=== PATIENT | female | born 1945 | race Caucasian/White ===

== ENCOUNTER 2017-01-30 14:27 | Observation (INO) | payer MEDICARE ==
--- NOTE | 2017-01-30 15:07 | ER Document Report ---
ED Medical Screen (RME) - General Chief Complaint: General Weakness Stated Complaint: WEAKNESS Notes: The patient is a 71-year-old female, past medical history hypertension, presents after she had 20 minutes of expressive aphasia while she was shopping earlier today. According to her sister, at 14:00, the patient was unable to speak, even though she was trying. On arrival to the emergency room at 14:20, the patient's symptoms resolved. She has never had any strokelike symptoms in the past. She took a baby aspirin earlier today. Denies numbness, tingling, headache, head injury, blurry vision, neck pain, ataxia, fevers, nausea or vomiting. I have greeted and performed a rapid initial assessment of this patient. A comprehensive ED assessment and evaluation of the patient, analysis of test results and completion of the medical decision making process will be conducted by additional ED providers. TRAVEL OUTSIDE OF THE [place] IN LAST 30 DAYS: No - Related Data Allergies/Adverse Reactions: No Known Allergies Allergy (Verified 01/30/17 14:37) Past Medical History Renal/ Medical History: Denies: Hx Peritoneal Dialysis Physical Exam - Vital signs Vitals: Temp Pulse Resp BP Pulse Ox 97.5 F 74 20 155/101 H 97 01/30/17 14:32 01/30/17 14:32 01/30/17 14:32 01/30/17 14:32 01/30/17 14:32 Course - Vital Signs Vital signs: Temp Pulse Resp BP Pulse Ox 97.5 F 74 20 155/101 H 97 01/30/17 14:32 01/30/17 14:32 01/30/17 14:32 01/30/17 14:32 01/30/17 14:32
--- NOTE | 2017-01-30 15:09 | ER Document Report ---
ED Alteplase Inc/Exc Criteria - Date/Time patient last known well: Date/Time: 01/30/17 14:00 - Inclusion Criteria: 1: Patient presented to ED within 3 hours of acute ischemic stroke symptom onset ? -: Yes 2: Did baseline CT exclude intracranial hemorrhage and/or other risk factors? -: Yes 3: Is the age of the patient 18 years of age or greater? -: Yes : If any of the above questions are answered "NO" then stop, patient is not a candidate for Alteplase, : If all of the above questions are answered "YES" then continue with Exclusion Criteria. - Exclusion Criteria: 1: Is there evidence of intracranial hemorrhage on baseline CT? -: No 2: Is there suspicion of subarachnoid hemorrhage (even if CT negative)? -: No 3: Is there a history of serious head trauma, recent previous stroke or NV within 3 months? -: No 4: Does the patient have a clinical presentation consistent with NV or post-NV pericarditis? -: No 5: Is there history of intracranial hemorrhage? -: No 6: On repeated measurement is Systolic BP greater than 185mmHg or Diastolic BP greater that 110 mmHg and is aggressive treatment needed to reduce blood pressure to these limits (e.g. constant infusion of an anti-hypertensive)? -: No 7: Did the patient awake with stroke symptoms? -: No 8: Has the patient had a lumbar puncture or an arterial puncture at a non- compressile site within 7 days? -: No 9: With in the last 14 days did the patient have surgery or major trauma? -: No 10: Is the patient or less than 2 weeks? -: No 11: Was there any active bleeding or acute trauma? -: No 12: Does the patient have intracranial neoplasm, arteriovenous malformation or aneurysm? -: No 13: Does the patient have abnormal glucose (less than 50 or greater than 400mg/ dl)? Record glucose in Comment. -: No 14: Patient has rapidly improving symptoms at the time Alteplase is to be Administered. -: Yes 15: Does the patient have any risks for bleeding, including but not limited to: a.: Current use of Coumadin with PT greater than 15 seconds or INR greater than 1.7. b.: Current use of Pradaxa (Dabigatran). c.: Heparin administereed within the past 48 hours and PTT elevated. d.: Platelet count less than 100,000/mm. e.: Major surgery or serious trauma within 14 days. f.: Gastrointestinal or gynecological urinary bleeding within 14 days. g.: Myocardial Infarction (NV) within 3 months. -: No : If the answer to any of the above questions is "YES" then stop, the patient is not a candidate for Alteplase. : If the answer to all of the above questions is "NO" then the patient may be eligible for the Administration of Alteplase. : If the patient is noted to have seizure activity at onset of Stroke symptoms; Consult Neurologist for further evaluation. - The patient is: -: Included and is eligible to receive Alteplase. *Initiate bed placement at higher level of care* --: No Reviewd risks & benefits of thrombolytic therapy: I have reviewed the risks and benefits of thrombolytic therapy with the patient and/or his/her family. No -: Excluded and not eligible to receive Alteplase for the above exclusions. --: Yes -: Excluded and not eligible to receive Alteplase for other reasons (specify in comments): - Diagnosis of TIA: -: Patient presented with transient symptoms that are now resolved and no other neurologic findings are currently present. List symptoms in comments. -: Yes -: Patient is NOT a candidate for tPA. -: Yes -: ____(put name in comment) has been consulted for admission and continued evaluation of risk factor assessment.
--- NOTE | 2017-01-30 16:26 | ER Document Report ---
ED General - General Chief Complaint: General Weakness Stated Complaint: WEAKNESS TRAVEL OUTSIDE OF THE [place] IN LAST 30 DAYS: No - HPI Patient complains to provider of: generalized weakness as well as aphasia Notes: Patient coming in for evaluation of generalized weakness that occurred while she was shopping. Patient states while she was in the car on the way here to the ER started having trouble speaking. Patient states this lasted for restrained 10-20 minutes. Friend at bedside confirms. Patient otherwise states her at this time she is asymptomatic. Patient denies symptoms are occurring before. Patient does state she does feel better. Patient states she does have history of hypertension with electrolyte abnormalities states recent adjustments to her blood pressure medications. - Related Data Allergies/Adverse Reactions: No Known Allergies Allergy (Verified 01/30/17 14:37) Home Medications: Current Home Medications Aspirin [Aspirin 81 mg Chewable Tablet] 81 mg PO QAM 01/30/17 [History] Atenolol [Atenolol] 50 mg PO DAILY 01/30/17 [History] Fluticasone Propionate [Flonase Nasal [place] 50 Mcg/[place] 16 gm] 1 spray NASL DAILY 01/30/17 [History] Past Medical History - Social History Smoking Status: Unknown if Ever Smoked Family History: Reviewed & Not Pertinent Patient has suicidal ideation: No Patient has homicidal ideation: No Renal/ Medical History: Denies: Hx Peritoneal Dialysis Review of Systems - Review of Systems Constitutional: Weakness EENT: No symptoms reported Cardiovascular: No symptoms reported Respiratory: No symptoms reported Gastrointestinal: No symptoms reported Genitourinary: No symptoms reported Female Genitourinary: No symptoms reported Musculoskeletal: No symptoms reported Skin: No symptoms reported Hematologic/Lymphatic: No symptoms reported Neurological/Psychological: Other - Aphasia -: Yes All other systems reviewed and negative Physical Exam - Vital signs Vitals: Temp Pulse Resp BP Pulse Ox 97.5 F 74 20 155/101 H 97 01/30/17 14:32 01/30/17 14:32 01/30/17 14:32 01/30/17 14:32 01/30/17 14:32 Interpretation: Normal - General General appearance: Appears well, Alert - HEENT Head: Normocephalic, Atraumatic Eyes: Normal Pupils: PERRL - Respiratory Respiratory status: No respiratory distress Chest status: Nontender Breath sounds: Normal Chest palpation: Normal - Cardiovascular Rhythm: Regular Heart sounds: Normal auscultation Murmur: No - Abdominal Inspection: Normal Distension: No distension Bowel sounds: Normal Tenderness: Nontender Organomegaly: No organomegaly - Back Back: Normal, Nontender - Extremities General upper extremity: Normal inspection, Nontender, Normal color, Normal ROM , Normal temperature General lower extremity: Normal inspection, Nontender, Normal color, Normal ROM , Normal temperature, Normal weight bearing. No: Veto's sign - Neurological Neuro grossly intact: Yes Cognition: Normal Orientation: AAOx4 [place] Coma Scale Eye Opening: Spontaneous [place] Coma Scale Verbal: Oriented [place] Coma Scale Motor: Obeys Commands [place] Coma Scale Total: 15 Speech: Normal Cranial nerves: Normal Cerebellar coordination: Normal Motor strength normal: LUE, RUE, LLE, RLE Additional motor exam normals: Equal block captain Sensory: Normal - Psychological Associated symptoms: Normal affect, Normal mood - Skin Skin Temperature: Warm Skin Moisture: Dry Skin Color: Normal Course - Re-evaluation Re-evalutation: 01/30/17 21:42 Patient symptoms are concerning for possible TIA. Laboratory data shows some signs of dehydration with hemoconcentration. Patient's blood pressure does continue to elevate. I did discuss case with hospitals agrees oral hydralazine 25 mg. As that we do not have an IV established at this time. Discussed with patient need for further evaluation and admission. Patient was admitted - Vital Signs Vital signs: Temp Pulse Resp BP Pulse Ox 97.5 F 67 17 170/82 H 93 01/30/17 14:32 01/30/17 20:00 01/30/17 21:01 01/30/17 21:01 01/30/17 21:01 - Laboratory Result Diagrams: 01/30/17 16:45 01/30/17 16:45 Laboratory results interpreted by me: 01/30/17 01/30/17 01/30/17 16:45 16:45 17:12 Hgb 15.7 H Hct 47.3 H Lymphocytes % 11.2 L Sodium 134.3 L Chloride 90 L Carbon Dioxide 33 H Calcium 10.5 H Urine Urobilinogen 2.0 H Ur Leukocyte Esterase TRACE H - Diagnostic Test Radiology reviewed: Image reviewed Critical Care Note - Critical Care Note Total time excluding time spent on procedures (mins): 35 Comments: Patient seen for possible TIA-like symptoms. Multiple evaluations due to patient having neurological symptoms and elevated blood pressure Discharge - Discharge Clinical Impression: expressive aphasia resolved, Accelerated hypertension TIA (transient ischemic attack) Qualifiers: Transient cerebral ischemia type: unspecified Qualified Code(s): G45.9 - Transient cerebral ischemic attack, unspecified Disposition: ADMITTED OBSERVATION Admitting Provider: Hospitalist - Fl[facility] Admitted: [facility]
[2017-01-30 16:58] LABS: ABSOLUTE BASOPHILS # (AUTO) 0.1 10^3/uL (0.0-0.2); ABSOLUTE EOSINOPHILS # (AUTO) 0.5 10^3/uL (0.0-0.6); ABSOLUTE MONOCYTES (AUTO) 0.9 10^3/uL (0.1-1.4); ABSOLUTE NEUT (AUTO) 6.9 10^3/uL (1.7-8.2); BASOPHILS % (AUTO) 0.9 % (0-2); HEMATOCRIT 47.3 % (36.0-47.0); HEMOGLOBIN 15.7 g/dL (12.0-15.5); HGB HCT DIFFERENCE -0.2; LYMPHOCYTES % (AUTO) 11.2 % (13-45); MEAN CORPUSCULAR HGB CONC 33.3 g/dL (32.0-36.0); MEAN CORPUSCULAR VOLUME 90 fl (80-97); MONOCYTES % (AUTO) 9.3 % (3-13); RED BLOOD COUNT 5.25 10^6/uL (3.72-5.28); RED CELL DISTRIBUTION WIDTH 13.8 % (11.5-14.0); SEGMENTED NEUTROPHILS % (AUTO) 73.6 % (42-78); WHITE BLOOD COUNT 9.3 10^3/uL (4.0-10.5)
[2017-01-30 17:03] LABS: PROTHROMBIN TIME 12.7 SEC (11.4-15.4)
[2017-01-30 17:04] LABS: PARTIAL THROMBOPLASTIN TIME 31.1 SEC (23.5-35.8)
[2017-01-30] MEDS ORDERED: NORMAL SALINE 500 ML IV ONE (17:17)
[2017-01-30 17:18] LABS: ALANINE AMINOTRANSFERASE 28 U/L (9-52); ALBUMIN 4.5 g/dL (3.5-5.0); ALKALINE PHOSPHATASE 66 U/L (38-126); ANION GAP 11 (5-19); ASPARTATE AMINO TRANSFERASE 22 U/L (14-36); BILIRUBIN,DIRECT 0.1 mg/dL (0.0-0.4); BILIRUBIN,TOTAL 1.2 mg/dL (0.2-1.3); BLOOD UREA NITROGEN 13 mg/dL (7-20); CALCIUM 10.5 mg/dL (8.4-10.2); CARBON DIOXIDE 33 mmol/L (22-30); CHLORIDE 90 mmol/L (98-107); CREATINE KINASE 49 U/L (30-135); CREATININE RESULT 0.79 mg/dL (0.52-1.25); GLUCOSE 98 mg/dL (75-110); SODIUM 134.3 mmol/L (137-145); TOTAL PROTEIN 6.9 g/dL (6.3-8.2)
[2017-01-30 17:24] LABS: APPEARANCE,URINE SLIGHTLY-CLOUDY; BILIRUBIN,URINE NEGATIVE (NEGATIVE); GLUCOSE, URINE NEGATIVE (NEGATIVE); KETONES,URINE NEGATIVE (NEGATIVE); LEUKOCYTE ESTERASE,URINE TRACE (NEGATIVE); NITRITE,URINE NEGATIVE (NEGATIVE); PROTEIN,URINE NEGATIVE (NEGATIVE); URINE SPECIFIC GRAVITY 1.008
[2017-01-30] MEDS ORDERED: HYDRALAZINE HCL 25 MG TABLET PO ONE (17:36)
--- NOTE | 2017-01-30 19:53 | EKG REPORT ---
SEVERITY:- NORMAL ECG - SINUS RHYTHM : Confirmed by: Davi Perez MD 30-Jan-2017 19:52:47
[2017-01-30] MEDS ORDERED: ASPIRIN 325 MG TABLET, ENT COATED PO SCH (20:30)
[2017-01-30] MEDS ORDERED: ENOXAPARIN SODIUM INJ 40 MG/0.4 ML DISP.SYRIN SUBCUT ONE (21:00)
[2017-01-30] MEDS ORDERED: ATORVASTATIN CALCIUM 80 MG TABLET PO SCH (22:00)
[2017-01-30] MEDS ORDERED: FAMOTIDINE 20 MG TABLET PO SCH (22:00)
[2017-01-30] MEDS: HYDRALAZINE HCL 25 MG TABLET PO SCH (23:16)
[2017-01-31] MEDS: HYDRALAZINE HCL 25 MG TABLET PO SCH (05:56)
[2017-01-31] MEDS ORDERED: ENOXAPARIN SODIUM INJ 40 MG/0.4 ML DISP.SYRIN SUBCUT SCH (08:00)
[2017-01-31 08:38] LABS: CHOLESTEROL 167.89 mg/dL (0-200); Direct HDL 67 mg/dL (>40); TRIGLYCERIDES 99 mg/dL (<150)
[2017-01-31 08:49] LABS: DIRECT LDL 80 mg/dL (<100)
[2017-01-31] MEDS ORDERED: ATENOLOL 50 MG TABLET PO SCH (10:00)
[2017-01-31] MEDS ORDERED: FAMOTIDINE 20 MG TABLET PO SCH (11:00)
--- NOTE | 2017-01-31 13:48 | XCELERA REPORT ---
[address] [address] Transthoracic Echocardiogram Report Name: MARIEL ALBARRAN Age: 71 yrs Gender: Female : 1945 Patient Status: Inpatient Patient Location: [id number]\S\329\S\A Study Date: 01/31/2017 12:22 PM Height: 62 in Weight: 265 lb BSA: 2.2 m2 Procedure: A two-dimensional transthoracic echocardiogram with color flow and Doppler was performed. Study Quality: Technically suboptimal. Reason For Study: TIA History: TIA. Ordering Physician: TARAS SMITH Performed By: Yelena Castle Interpretation Summary There is no obvious cardiac source of embolus noted on this transthoracic echocardiogram. Follow-up with a [facility] is suggested if cardiac source is still suspected. 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 The left ventricle is normal in size. There is normal left ventricular wall thickness. LV EF is 60% Left ventricular systolic function is low normal. Doppler measurements suggest impaired left ventricular relaxation, which is associated with grade I/IV or mild diastolic dysfunction The right ventricle is grossly normal size. The left atrial size is normal. There is no evidence of mitral valve prolapse. There is no mitral valve stenosis. There is no mitral regurgitation noted. There is no aortic valve stenosis There is no LVOT obstruction. No aortic regurgitation is present. There is no tricuspid stenosis. No tricuspid regurgitation. Unable to calculate RVSP due to insufficient TR jet. There is no pericardial effusion. There is no obvious cardiac source of embolus noted on this transthoracic echocardiogram. Follow-up with a [facility] is suggested if cardiac source is still suspected A 10.6 X 11.3 anechoic mass in Liver.Recommend further workup of this. MMode/2D Measurements \T\ Calculations RVDd: 2.3 cm LVIDd: 4.3 cm FS: 31.4 % Ao root diam: 3.2 cm IVSd: 1.1 cm LVIDs: 3.0 cm EDV(Teich): 84.9 ml LVPWd: 1.1 cm ESV(Teich): 34.3 ml Ao root area: 8.2 cm2 EF(Teich): 59.6 % LA dimension: 3.0 cm LVOT diam: 2.3 cm LVOT area: 4.0 cm2 Doppler Measurements \T\ Calculations MV E max candis: MV P1/2t max candis: Ao V2 max: LV V1 max P.6 cm/sec 81.2 cm/sec 135.1 cm/sec 4.3 mmHg MV A max candis: MV P1/2t: 57.0 msec Ao max PG: LV V1 max: 98.7 cm/sec MVA(P1/2t): 3.9 cm2 7.3 mmHg 103.9 cm/sec MV E/A: 0.82 MV dec slope: ANN MARIE(V,D): 3.1 cm2 417.7 cm/sec2 PA V2 max: 50.7 cm/sec PA max P.0 mmHg Left Ventricle The left ventricle is normal in size. There is normal left ventricular wall thickness. LV EF is 60%. Left ventricular systolic function is low normal. Doppler measurements suggest impaired left ventricular relaxation, which is associated with grade I/IV or mild diastolic dysfunction. The left ventricular wall motion is normal. There is no thrombus. Right Ventricle The right ventricle is grossly normal size. Atria The right atrium is normal in size. The left atrial size is normal. Mitral Valve There is mild mitral annular calcification. There is no evidence of mitral valve prolapse. There is no vegetation seen on the mitral valve. There is no mitral valve stenosis. There is no mitral regurgitation noted. Aortic Valve There is no aortic valvular vegetation. There is no aortic valve stenosis. There is no LVOT obstruction. No aortic regurgitation is present. Tricuspid Valve There is no tricuspid stenosis. No tricuspid regurgitation. Unable to calculate RVSP due to insufficient TR jet. Pulmonic Valve The pulmonic valve is not well visualized. Great Vessels The aortic root is normal size. Effusions There is no pericardial effusion. : TARAS SMITH > Katherine Thomas
[2017-01-31 14:30] VITALS: BP 148/77
--- NOTE | 2017-01-31 16:28 | PDOC H&P ---
History of Present Illness Admission Date/PCP: 01/30/17 20:22 MICAH MASON NP I Laboratory Patient complains of: Generalized weakness and aphasia History of Present Illness: MARIEL ALBARRAN is a 71 year old female Patient coming in for evaluation of generalized weakness that occurred while she was shopping. Patient states while she was in the car on the way here to the ER started having trouble speaking. Patient states this lasted for restrained 10-20 minutes. Friend at bedside confirms. Patient otherwise states her at this time she is asymptomatic. Patient denies symptoms are occurring before. Patient does state she does feel better. Patient states she does have history of hypertension with electrolyte abnormalities states recent adjustments to her blood pressure medications. Aphasia resolved after 20 minutes and patient was totally asymptomatic when evaluated She had an initial negative CAT scan She was subsequently admitted to IMCU unit for observation under hospitalist service with a presumptive diagnosis of TIA Past Medical History Cardiac Medical History: Reports: Hypertension Psychiatric Medical History: Reports: Depression Social History Smoking Status: Former Smoker Last Time Smoked: 10/20/2014 Frequency of Alcohol Use: None Hx Recreational Drug Use: No Drugs: None Hx Prescription Drug Abuse: No - Advance Directive Resuscitation Status: Full Code Surrogate healthcare decision maker:: sister Adriana Family History Family History: Reviewed & Not Pertinent, Hypertension Parental Family History Reviewed: Yes Children Family History Reviewed: Yes Sibling(s) Family History Reviewed.: Yes Medication/Allergy Home Medications: Atenolol 50 mg PO DAILY 01/30/17 Fluticasone Propionate [Flonase Nasal [place] 50 Mcg/[place] 16 gm] 1 spray NASL DAILY 01/30/17 Atenolol [Tenormin 50 mg Tablet] 50 mg PO DAILY #30 tablet 01/31/17 Atorvastatin Calcium [Lipitor 10 mg Tablet] 10 mg PO QHS #30 tablet 01/31/17 Clopidogrel Bisulfate [Plavix 75 mg Tablet] 75 mg PO DAILY #30 tablet 01/31/17 Hydralazine HCl [Apresoline 25 mg Tablet] 25 mg PO Q8 #90 tablet 01/31/17 Allergies/Adverse Reactions: No Known Allergies Allergy (Verified 01/30/17 14:37) Review of Systems Constitutional: PRESENT: weakness. ABSENT: chills, fever(s), headache(s), weight gain, weight loss Eyes: ABSENT: visual disturbances Ears: ABSENT: hearing changes Cardiovascular: ABSENT: chest pain, dyspnea on exertion, edema, orthropnea, palpitations Respiratory: ABSENT: cough, hemoptysis Gastrointestinal: ABSENT: abdominal pain, constipation, diarrhea, hematemesis, hematochezia, nausea, vomiting Genitourinary: ABSENT: dysuria, hematuria Musculoskeletal: ABSENT: joint swelling Integumentary: ABSENT: rash, wounds Neurological: PRESENT: abnormal speech, weakness, other - Aphasia resolved. ABSENT: abnormal gait, confusion, dizziness, focal weakness, syncope Psychiatric: ABSENT: anxiety, depression, homidical ideation, suicidal ideation Endocrine: ABSENT: cold intolerance, heat intolerance, polydipsia, polyuria Hematologic/Lymphatic: ABSENT: easy bleeding, easy bruising Physical Exam Vital Signs: Temp Pulse Resp BP Pulse Ox 98.6 F 65 18 148/77 H 96 01/31/17 14:26 01/31/17 14:26 01/31/17 14:26 01/31/17 14:26 01/31/17 14:26 Intake & Output 01/30/17 01/31/17 02/01/17 00:59 00:59 00:59 Intake Total 300 1078 Output Total 1200 Balance 300 -122 Weight 120.5 kg 120.5 kg General appearance: PRESENT: no acute distress Head exam: PRESENT: atraumatic, normocephalic Eye exam: PRESENT: conjunctiva pink, EOMI, PERRLA. ABSENT: scleral icterus Ear exam: PRESENT: normal external ear exam Mouth exam: PRESENT: moist, tongue midline Neck exam: ABSENT: carotid bruit, JVD, lymphadenopathy, thyromegaly Respiratory exam: PRESENT: clear to auscultation cheng. ABSENT: rales, rhonchi, wheezes Cardiovascular exam: PRESENT: RRR. ABSENT: diastolic murmur, rubs, systolic murmur Pulses: PRESENT: normal dorsalis pedis pul Vascular exam: PRESENT: normal capillary refill GI/Abdominal exam: PRESENT: normal bowel sounds, soft. ABSENT: distended, guarding, mass, organolmegaly, rebound, tenderness Rectal exam: PRESENT: deferred Extremities exam: PRESENT: full ROM. ABSENT: calf tenderness, clubbing, pedal edema Neurological exam: PRESENT: alert, awake, oriented to person, oriented to place , oriented to time, oriented to situation, CN II-XII grossly intact. ABSENT: motor sensory deficit Psychiatric exam: PRESENT: appropriate affect, normal mood. ABSENT: homicidal ideation, suicidal ideation Skin exam: PRESENT: dry, intact, warm. ABSENT: cyanosis, rash Results Laboratory Results: 01/31/17 08:15 Triglycerides 99 Cholesterol 167.89 LDL Cholesterol Direct 80 VLDL Cholesterol 20.0 HDL Cholesterol 67 01/30/17 16:45 01/30/17 16:45 MCV 90 fl (80-97) 01/30/17 16:45 MCH 30.0 pg (27.0-33.4) 01/30/17 16:45 MCHC 33.3 g/dL (32.0-36.0) 01/30/17 16:45 RDW 13.8 % (11.5-14.0) 01/30/17 16:45 Seg Neutrophils % 73.6 % (42-78) 01/30/17 16:45 Lymphocytes % 11.2 % (13-45) L 01/30/17 16:45 Monocytes % 9.3 % (3-13) 01/30/17 16:45 Eosinophils % 5.0 % (0-6) 01/30/17 16:45 Basophils % 0.9 % (0-2) 01/30/17 16:45 Absolute Neutrophils 6.9 10^3/uL (1.7-8.2) 01/30/17 16:45 Absolute Lymphocytes 1.0 10^3/uL (0.5-4.7) 01/30/17 16:45 Absolute Monocytes 0.9 10^3/uL (0.1-1.4) 01/30/17 16:45 Absolute Eosinophils 0.5 10^3/uL (0.0-0.6) 01/30/17 16:45 Absolute Basophils 0.1 10^3/uL (0.0-0.2) 01/30/17 16:45 Chloride 90 mmol/L (98-107) L 01/30/17 16:45 Carbon Dioxide 33 mmol/L (22-30) H 01/30/17 16:45 Anion Gap 11 (5-19) 01/30/17 16:45 Est GFR ( Amer) > 60 (>60) 01/30/17 16:45 Est GFR (Non-Af Amer) > 60 (>60) 01/30/17 16:45 Glucose 98 mg/dL (75-110) 01/30/17 16:45 Calcium 10.5 mg/dL (8.4-10.2) H 01/30/17 16:45 Total Bilirubin 1.2 mg/dL (0.2-1.3) 01/30/17 16:45 AST 22 U/L (14-36) 01/30/17 16:45 ALT 28 U/L (9-52) 01/30/17 16:45 Alkaline Phosphatase 66 U/L (38-126) 01/30/17 16:45 Total Protein 6.9 g/dL (6.3-8.2) 01/30/17 16:45 Albumin 4.5 g/dL (3.5-5.0) 01/30/17 16:45 Triglycerides 99 mg/dL (<150) 01/31/17 08:15 Cholesterol 167.89 mg/dL (0-200) 01/31/17 08:15 LDL Cholesterol Direct 80 mg/dL (<100) 01/31/17 08:15 VLDL Cholesterol 20.0 mg/dL (10-31) 01/31/17 08:15 HDL Cholesterol 67 mg/dL (>40) 01/31/17 08:15 Urine Color YELLOW 01/30/17 17:12 Urine Appearance SLIGHTLY-CLOUDY 01/30/17 17:12 Urine pH 7.0 (5.0-9.0) 01/30/17 17:12 Ur Specific [place] 1.008 01/30/17 17:12 Urine Protein NEGATIVE mg/dL (NEGATIVE) 01/30/17 17:12 Urine Glucose (UA) NEGATIVE mg/dL (NEGATIVE) 01/30/17 17:12 Urine Ketones NEGATIVE mg/dL (NEGATIVE) 01/30/17 17:12 Urine Blood NEGATIVE (NEGATIVE) 01/30/17 17:12 Urine Nitrite NEGATIVE (NEGATIVE) 01/30/17 17:12 Ur Leukocyte Esterase TRACE (NEGATIVE) H 01/30/17 17:12 Urine WBC (Auto) 2 /HPF 01/30/17 17:12 Urine RBC (Auto) 0 /HPF 01/30/17 17:12 01/30/17 01/30/17 16:45 16:45 Creatine Kinase 49 Troponin I < 0.012 EKG Comments: EKG normal sinus rhythm Impressions: Chest X-Ray 01/30/17 14:43 IMPRESSION: NO ACUTE RADIOGRAPHIC FINDING IN THE CHEST. Head CT 01/30/17 14:43 IMPRESSION: No acute abnormality in the brain. Carotid Doppler Study 01/31/17 00:00 IMPRESSION: NO HEMODYNAMICALLY SIGNIFICANT STENOSIS. Assessment & Plan - Diagnosis (1) Accelerated hypertension Is this a current diagnosis for this admission?: Yes (2) TIA (transient ischemic attack) Qualifiers: Transient cerebral ischemia type: unspecified Qualified Code(s): G45.9 - Transient cerebral ischemic attack, unspecified Is this a current diagnosis for this admission?: Yes - Time Time Spent with patient: We will initiate hydralazine by mouth; continue atenolol Patient to be admitted to IMCU with [facility] exams carotid ultrasound and echocardiogram will be scheduled Patient is to anxious to tolerate MRI We will initiate aspirin and Lipitor Time Spent: 50 to 70 Minutes - Inpatient Certification Based on my medical assessment, after consideration of the patient's comorbidities, presenting symptoms, or acuity I expect that the services needed warrant INPATIENT care.: No I certify that my determination is in accordance with my understanding of Medicare's requirements for reasonable and necessary INPATIENT services [42 CFR 412.3e].: No
--- NOTE | 2017-01-31 16:44 | PDOC DISCHARGE SUMMARY ---
General - Admit/Disc Date/PCP Admission Date/Primary Care Provider: 01/30/17 20:22 MICAH MASON NP Discharge Date: 01/31/17 - Discharge Diagnosis (1) Accelerated hypertension Is this a current diagnosis for this admission?: YesSummary: Patient's blood pressure was very high on admission Selected Entries 01/30/17 01/30/17 01/30/17 16:58 16:59 17:01 Blood Pressure 190/105 H 194/105 H 205/114 H Blood Pressure [Sitting] Blood Pressure [Standing] Blood Pressure [Supine] 01/30/17 17:31 Blood Pressure Blood Pressure 194/105 H [Sitting] Blood Pressure 205/114 H [Standing] Blood Pressure 190/115 H [Supine] She was treated with hydralazine and atenolol was continued It came down gently to Selected Entries 01/31/17 01/31/17 12:00 14:26 Blood Pressure 150/73 H Blood Pressure 148/77 H [Left Upper Arm ] We do believe that patient had a hypertensive episode that contributed to the TIA Patient was discharged on atenolol and hydralazine (2) TIA (transient ischemic attack) Is this a current diagnosis for this admission?: YesSummary: CAT scan of the brain was normal An MRA was not performed as the patient is claustrophobic Patient mentation was intact during the hospitalization ; she she had no deficits Speech was not impaired She was discharged on Lipitor and Plavix (3) Liver mass Is this a current diagnosis for this admission?: YesSummary: Incidentally , Echocardiogram showed a liver mass 10 x [address] abdomen and pelvis with contrast was advised Patient did not wish to have the test done at this time Noted that patient's LFTs were normal - Additional Information Resuscitation Status: Full Code Discharge Diet: Cardiac Discharge Activity: Activity As Tolerated, Balance Activity w/Rest Home Medications: Atenolol 50 mg PO DAILY 01/30/17 Fluticasone Propionate [Flonase Nasal Stewardson 50 Mcg/Stewardson 16 gm] 1 spray NASL DAILY 01/30/17 Atenolol [Tenormin 50 mg Tablet] 50 mg PO DAILY #30 tablet 01/31/17 Atorvastatin Calcium [Lipitor 10 mg Tablet] 10 mg PO QHS #30 tablet 01/31/17 Clopidogrel Bisulfate [Plavix 75 mg Tablet] 75 mg PO DAILY #30 tablet 01/31/17 Hydralazine HCl [Apresoline 25 mg Tablet] 25 mg PO Q8 #90 tablet 01/31/17 History of Present Illness Patient complains of: Weakness and aphasia History of Present Illness: MARIEL ALBARRAN is a 71 year old female Patient coming in for evaluation of generalized weakness that occurred while she was shopping. Patient states while she was in the car on the way here to the ER started having trouble speaking. Patient states this lasted for restrained 10-20 minutes. Friend at bedside confirms. Patient otherwise states her at this time she is asymptomatic. Patient denies symptoms are occurring before. Patient does state she does feel better. Patient states she does have history of hypertension with electrolyte abnormalities states recent adjustments to her blood pressure medications. Aphasia resolved after 20 minutes and patient was totally asymptomatic when evaluated She had an initial negative CAT scan She was subsequently admitted to IMCU unit for observation under hospitalist service with a presumptive diagnosis of TIA Hospital Course Hospital Course: Patient remained totally asymptomatic during her stay Cardiac enzymes were negative EKG were unchanged She remained a extremely anxious Physical Exam Vital Signs: Temp Pulse Resp BP Pulse Ox 98.6 F 65 18 148/77 H 96 01/31/17 14:26 01/31/17 14:26 01/31/17 14:26 01/31/17 14:26 01/31/17 14:26 Intake & Output 01/30/17 01/31/17 02/01/17 00:59 00:59 00:59 Intake Total 300 1078 Output Total 1200 Balance 300 -122 Weight 120.5 kg 120.5 kg General appearance: PRESENT: no acute distress, well-developed, well-nourished Head exam: PRESENT: atraumatic, normocephalic Eye exam: PRESENT: conjunctiva pink, EOMI, PERRLA. ABSENT: scleral icterus Ear exam: PRESENT: normal external ear exam Mouth exam: PRESENT: moist, tongue midline Neck exam: ABSENT: carotid bruit, JVD, lymphadenopathy, thyromegaly Respiratory exam: PRESENT: clear to auscultation cheng. ABSENT: rales, rhonchi, wheezes Cardiovascular exam: PRESENT: RRR. ABSENT: diastolic murmur, rubs, systolic murmur Pulses: PRESENT: normal dorsalis pedis pul Vascular exam: PRESENT: normal capillary refill GI/Abdominal exam: PRESENT: normal bowel sounds, soft. ABSENT: distended, guarding, mass, organolmegaly, rebound, tenderness Rectal exam: PRESENT: deferred Extremities exam: PRESENT: full ROM. ABSENT: calf tenderness, clubbing, pedal edema Neurological exam: PRESENT: alert, awake, oriented to person, oriented to place , oriented to time, oriented to situation, CN II-XII grossly intact. ABSENT: motor sensory deficit Psychiatric exam: PRESENT: appropriate affect, normal mood. ABSENT: homicidal ideation, suicidal ideation Skin exam: PRESENT: dry, intact, warm. ABSENT: cyanosis, rash Results Laboratory Results: 01/31/17 08:15 Triglycerides 99 Cholesterol 167.89 LDL Cholesterol Direct 80 VLDL Cholesterol 20.0 HDL Cholesterol 67 01/30/17 16:45 01/30/17 16:45 MCV 90 fl (80-97) 01/30/17 16:45 MCH 30.0 pg (27.0-33.4) 01/30/17 16:45 MCHC 33.3 g/dL (32.0-36.0) 01/30/17 16:45 RDW 13.8 % (11.5-14.0) 01/30/17 16:45 Seg Neutrophils % 73.6 % (42-78) 01/30/17 16:45 Lymphocytes % 11.2 % (13-45) L 01/30/17 16:45 Monocytes % 9.3 % (3-13) 01/30/17 16:45 Eosinophils % 5.0 % (0-6) 01/30/17 16:45 Basophils % 0.9 % (0-2) 01/30/17 16:45 Absolute Neutrophils 6.9 10^3/uL (1.7-8.2) 01/30/17 16:45 Absolute Lymphocytes 1.0 10^3/uL (0.5-4.7) 01/30/17 16:45 Absolute Monocytes 0.9 10^3/uL (0.1-1.4) 01/30/17 16:45 Absolute Eosinophils 0.5 10^3/uL (0.0-0.6) 01/30/17 16:45 Absolute Basophils 0.1 10^3/uL (0.0-0.2) 01/30/17 16:45 Chloride 90 mmol/L (98-107) L 01/30/17 16:45 Carbon Dioxide 33 mmol/L (22-30) H 01/30/17 16:45 Anion Gap 11 (5-19) 01/30/17 16:45 Est GFR ( Amer) > 60 (>60) 01/30/17 16:45 Est GFR (Non-Af Amer) > 60 (>60) 01/30/17 16:45 Glucose 98 mg/dL (75-110) 01/30/17 16:45 Calcium 10.5 mg/dL (8.4-10.2) H 01/30/17 16:45 Total Bilirubin 1.2 mg/dL (0.2-1.3) 01/30/17 16:45 AST 22 U/L (14-36) 01/30/17 16:45 ALT 28 U/L (9-52) 01/30/17 16:45 Alkaline Phosphatase 66 U/L (38-126) 01/30/17 16:45 Total Protein 6.9 g/dL (6.3-8.2) 01/30/17 16:45 Albumin 4.5 g/dL (3.5-5.0) 01/30/17 16:45 Triglycerides 99 mg/dL (<150) 01/31/17 08:15 Cholesterol 167.89 mg/dL (0-200) 01/31/17 08:15 LDL Cholesterol Direct 80 mg/dL (<100) 01/31/17 08:15 VLDL Cholesterol 20.0 mg/dL (10-31) 01/31/17 08:15 HDL Cholesterol 67 mg/dL (>40) 01/31/17 08:15 Urine Color YELLOW 01/30/17 17:12 Urine Appearance SLIGHTLY-CLOUDY 01/30/17 17:12 Urine pH 7.0 (5.0-9.0) 01/30/17 17:12 Ur Specific Marion 1.008 01/30/17 17:12 Urine Protein NEGATIVE mg/dL (NEGATIVE) 01/30/17 17:12 Urine Glucose (UA) NEGATIVE mg/dL (NEGATIVE) 01/30/17 17:12 Urine Ketones NEGATIVE mg/dL (NEGATIVE) 01/30/17 17:12 Urine Blood NEGATIVE (NEGATIVE) 01/30/17 17:12 Urine Nitrite NEGATIVE (NEGATIVE) 01/30/17 17:12 Ur Leukocyte Esterase TRACE (NEGATIVE) H 01/30/17 17:12 Urine WBC (Auto) 2 /HPF 01/30/17 17:12 Urine RBC (Auto) 0 /HPF 01/30/17 17:12 01/30/17 01/30/17 16:45 16:45 Creatine Kinase 49 Troponin I < 0.012 EKG Comments: Normal sinus rhythm Impressions: Chest X-Ray 01/30/17 14:43 IMPRESSION: NO ACUTE RADIOGRAPHIC FINDING IN THE CHEST. Head CT 01/30/17 14:43 IMPRESSION: No acute abnormality in the brain. Carotid Doppler Study 01/31/17 00:00 IMPRESSION: NO HEMODYNAMICALLY SIGNIFICANT STENOSIS. Plan Discharge Plan: Discharged home Follow up with primary care physician CT abdomen and pelvis with contrast will be performed as an outpatient Time Spent: Greater than 30 Minutes
== END 2017-01-31 14:51 | disposition home or self-care (01) ==
LOC: ER 14:27 → EH 18:15 → UNDOADMOB 18:15 → EH 20:22 → 3S 21:45 → EH 21:45
PROVIDERS: ADMIT Family Medicine; ATTEND Family Medicine
DX: I10 Essential (primary) hypertension (principal); G45.9 Transient cerebral ischemic attack, unspecified; F40.240 Claustrophobia; Z53.8 Procedure and treatment not carried out for other reasons; R16.0 Hepatomegaly, not elsewhere classified; Z87.891 Personal history of nicotine dependence; Z79.899 Other long term (current) drug therapy; Z79.82 Long term (current) use of aspirin
CPT/HCPCS: 93005; 99291; 96360; 36415; 82550; 85025; 85610; 85730; 80053; 81001; 84484; 80061; 93306; 93880; 71010; 70450; 93010; G0378 ×3; A9270 ×7; J1650 ×2; J3490 ×2; J7040

== ENCOUNTER 2019-12-25 20:17 | Inpatient (IN) | payer MEDICARE ==
[2019-12-25 21:27] LABS: APPEARANCE,URINE SLIGHTLY-CLOUDY; BILIRUBIN,URINE NEGATIVE (NEGATIVE); COLOR,URINE AMBER; GLUCOSE, URINE NEGATIVE (NEGATIVE); KETONES,URINE NEGATIVE (NEGATIVE); LEUKOCYTE ESTERASE,URINE SMALL (NEGATIVE); NITRITE,URINE NEGATIVE (NEGATIVE); PROTEIN,URINE 30 mg/dL (NEGATIVE); URINE SPECIFIC GRAVITY 1.023
--- NOTE | 2019-12-25 21:40 | RADIOLOGY REPORT (SQ) ---
EXAM DESCRIPTION: AP portable chest radiograph CLINICAL HISTORY: 74 years Female, SOB COMPARISON: PA view of the chest January 30, 2017 FINDINGS: Lungs: No focal consolidation. No definitive pneumothorax or pleural effusion. Mediastinum: Heart size is enlarged. There is calcification of the thoracic aorta. Calcified right hilar lymph nodes are seen. Bones: Osseous structures are stable IMPRESSION: No acute process. Previous granulomatous infection.
[2019-12-25 21:41] LABS: HEMATOCRIT 51.8 % (36.0-47.0); HEMOGLOBIN 16.9 g/dL (12.0-15.5); MEAN CORPUSCULAR HEMOGLOBIN 29.7 pg (27.0-33.4); MEAN CORPUSCULAR HGB CONC 32.6 g/dL (32.0-36.0); MEAN CORPUSCULAR VOLUME 91 fl (80-97); PLATELET COUNT 223 10^3/uL (150-450); RED BLOOD COUNT 5.69 10^6/uL (3.72-5.28); RED CELL DISTRIBUTION WIDTH 15.9 % (11.5-14.0); WHITE BLOOD COUNT 9.6 10^3/uL (4.0-10.5)
--- NOTE | 2019-12-25 21:46 | RADIOLOGY REPORT (SQ) ---
EXAM DESCRIPTION: Three views of the left foot. CLINICAL HISTORY: 74 years Female, PAIN COMPARISON: None. FINDINGS: Bunion deformity the first MTP joint is identified with hypertrophy of the head of the mid first metatarsal. There is osteophyte formation and joint space narrowing. Traction osteophyte formation is seen at the calcaneus at the insertion of the plantar fascia. In addition there is ill-defined ossification of the soft tissues of the plantar fascia in the distal Achilles tendon. Lucency is noted within the first proximal phalanx which is nonspecific. This may be related to osteopenia. There is no evidence of fracture. IMPRESSION: 1. 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 2. Osteophyte formation of the calcaneus with soft tissue ossification of the plantar fascia.
[2019-12-25 21:49] LABS: INTERNATIONAL RATION (INR) 1.06; PROTHROMBIN TIME 13.8 SEC (11.4-15.4)
[2019-12-25 21:58] LABS: ABSOLUTE LYMPHOCYTES# (MANUAL) 0.2 10^3/uL (0.5-4.7); ABSOLUTE MONOCYTES # (MANUAL) 0.4 10^3/uL (0.1-1.4); BAND NEUTROPHILS % (MANUAL) 1 % (3-5); BASOPHILS % (MANUAL) 0 % (0-2); EOSINOPHILS % (MANUAL) 0 % (0-6); LYMPHOCYTES % (MANUAL) 1 % (13-45); MONOCYTES % (MANUAL) 4 % (3-13); SEGMENTED NEUTROPHILS % (MAN) 93 % (42-78); TOTAL CELLS COUNTED 100
[2019-12-25 22:00] LABS: TOXIC GRANULATION 1+; TOXIC VACUOLATION PRESENT
[2019-12-25 22:01] LABS: ANISOCYTOSIS SLIGHT; BURR CELLS SLIGHT; OVALOCYTES SLIGHT; PLATELET COMMENT ADEQUATE; POIKILOCYTOSIS SLIGHT; TEAR DROP CELLS SLIGHT
[2019-12-25] MEDS ORDERED: NORMAL SALINE 1000 ML 1,000 ML IV ONE (22:24)
--- NOTE | 2019-12-25 22:27 | ER Document Report ---
ED General - General Chief Complaint: Weakness Stated Complaint: FALL Time Seen by Provider: 12/25/19 22:11 Notes: Patient is a 74-year-old female that comes to the emergency department for chief complaint of falling to the floor and not being able to get up. She states that she slipped off her bed this morning, she states she was stuck on the floor until about 3 PM when EMS arrived and helped her up, she states she thought she would be okay at that point but then she started feeling very weak, she states she slipped to the floor again try to get to a chair and then was stuck on the floor for hours again until she called EMS again. She was too weak to get up at that point. She states that she feels like her "legs will not work". She reports pain in her left ankle from the fall, she has some pain over the left hip as well. She denies back pain, denies hitting her head. She denies dizziness, headache, numbness, incontinence. She denies chest pain, shortness of breath, abdominal pain. She has a history of morbid obesity, TIA, hypertension, and she is on Plavix. She lives at home by herself. TRAVEL OUTSIDE OF THE [place] IN LAST 30 DAYS: No - Related Data Allergies/Adverse Reactions: escitalopram [From Lexapro] Allergy (Mild, Verified 12/26/19 01:25) Home Medications: plavix Past Medical History - General Information source: Patient - Social History Smoking Status: Former Smoker Frequency of alcohol use: None Drug Abuse: None Lives with: Alone Family History: Reviewed & Not Pertinent, Hypertension Patient has suicidal ideation: No Patient has homicidal ideation: No - Past Medical History Cardiac Medical History: Reports: Hx Hypercholesterolemia, Hx Hypertension Renal/ Medical History: Denies: Hx Peritoneal Dialysis Psychiatric Medical History: Reports: Hx Depression - Immunizations Hx Diphtheria, Pertussis, Tetanus Vaccination: Yes Review of Systems - Review of Systems Constitutional: See HPI EENT: No symptoms reported Cardiovascular: No symptoms reported Respiratory: No symptoms reported Gastrointestinal: No symptoms reported Genitourinary: No symptoms reported Female Genitourinary: No symptoms reported Musculoskeletal: See HPI Skin: No symptoms reported Hematologic/Lymphatic: No symptoms reported Neurological/Psychological: See HPI Physical Exam - Vital signs Vitals: Pulse Ox 83 L 12/25/19 20:21 - Notes Notes: GENERAL: Alert, interacts well. No acute distress. Obese HEAD: Normocephalic, atraumatic. EYES: Pupils equal, round, and reactive to light. Extraocular movements intact. ENT: Oral mucosa moist, tongue midline. Oropharynx unremarkable. Airway patent. LUNGS: Clear to auscultation bilaterally, no wheezes, rales, or rhonchi. No respiratory distress. No signs of trauma. HEART: Regular rate and rhythm. No murmur ABDOMEN: Soft, non-tender. Non-distended. Bowel sounds present in all 4 quadrants. GENITOURINARY: Deferred EXTREMITIES: Moves all 4 extremities spontaneously. Tenderness with suspected mild soft tissue swelling over the dorsal left aspect of the left foot. Range of motion of the ankle unremarkable. Normal exam otherwise. No edema, normal radial and dorsalis pedis pulses bilaterally. No cyanosis. BACK: No signs of trauma. No cervical, thoracic, lumbar midline tenderness. No saddle anesthesia, normal distal neurovascular exam. Moves all extremities in full range of motion. NEUROLOGICAL: Alert and oriented x3. Normal speech. Cranial nerves II through XII grossly intact. Upper extremity strength normal, lower extremity strength is decreased bilaterally with patient barely able to lift either leg at all. Sensations are intact. PSYCH: Normal affect, normal mood. SKIN: Warm, dry, normal turgor. No rashes or lesions noted. Course - Re-evaluation Re-evalutation: Patient is barely able to lift her legs on exam. Otherwise unremarkable exam. I do not see any signs of trauma except for some soft tissue swelling over the left dorsal foot. X-ray of the foot is negative, chest x-ray negative, x-rays added of the hip and scan of the head were added and this shows no acute finding either. Vital signs unremarkable except for borderline tachycardia, she is receiving IV fluids. CBC nonspecific, chemistry unremarkable including renal functioning, urinalysis nonspecific. Troponin is nonelevated. CK is very elevated at greater than 4440. Sodium is low at 128 but patient states this is actually good for her and she has been much lower (previously medication related reportedly per family and patient). Because of muscle breakdown, inability to walk, potential for rhabdo myolysis, frequent falls, patient will require admission. Discussed with family and patient, they state appreciation and agreement. Discussed with Dr. Culver, patient accepted to the medical floor full admission. - Vital Signs Vital signs: Temp Pulse Resp BP Pulse Ox 97.7 F 100 17 120/70 88 L 12/26/19 03:29 12/26/19 05:43 12/26/19 05:43 12/26/19 05:43 12/26/19 05:43 - Laboratory Result Diagrams: 12/25/19 21:15 12/25/19 21:58 Laboratory results interpreted by me: 12/25/19 12/25/19 12/25/19 20:43 21:15 21:58 RBC 5.69 H Hgb 16.9 H Hct 51.8 H RDW 15.9 H Seg Neuts % (Manual) 93 H Band Neutrophils % 1 L Lymphocytes % (Manual) 1 L Abs Neuts (Manual) 9.0 H Abs Lymphs (Manual) 0.2 L Sodium Chloride Carbon Dioxide Total Bilirubin AST Creatine Kinase CK-MB (CK-2) 16.50 H Urine Protein 30 H Urine Urobilinogen 4.0 H Ur Leukocyte Esterase SMALL H Urine Ascorbic Acid 40 H 12/25/19 21:58 RBC Hgb Hct RDW Seg Neuts % (Manual) Band Neutrophils % Lymphocytes % (Manual) Abs Neuts (Manual) Abs Lymphs (Manual) Sodium 128.0 L Chloride 87 L Carbon Dioxide 33 H Total Bilirubin 2.5 H AST 116 H Creatine Kinase 4483 H CK-MB (CK-2) Urine Protein Urine Urobilinogen Ur Leukocyte Esterase Urine Ascorbic Acid Discharge - Discharge Clinical Impression: Weakness, Unable to ambulate, Elevated CK Fall Qualifiers: Encounter type: initial encounter Qualified Code(s): W19.XXXA - Unspecified fall, initial encounter Condition: Stable Disposition: ADMITTED INPATIENT Admitting Provider: Palomo (Hospitalist) Unit Admitted: Medical Floor
[2019-12-25 22:41] LABS: CREATINE KINASE MB 16.5 ng/mL (<4.55); TROPONIN I 0.017 ng/mL
[2019-12-25 22:44] LABS: ALBUMIN 3.9 g/dL (3.5-5.0); ALKALINE PHOSPHATASE 70 U/L (38-126); ANION GAP 8 (5-19); ASPARTATE AMINO TRANSFERASE 116 U/L (14-36); BILIRUBIN,DIRECT 0.4 mg/dL (0.0-0.4); BILIRUBIN,TOTAL 2.5 mg/dL (0.2-1.3); BLOOD UREA NITROGEN 17 mg/dL (7-20); CARBON DIOXIDE 33 mmol/L (22-30); CHLORIDE 87 mmol/L (98-107); GLUCOSE 101 mg/dL (75-110); POTASSIUM 4.7 mmol/L (3.6-5.0); TOTAL PROTEIN 6.8 g/dL (6.3-8.2)
--- NOTE | 2019-12-25 22:49 | RADIOLOGY REPORT (SQ) ---
EXAM DESCRIPTION: CT HEAD WITHOUT IV CONTRAST COMPLETED DATE/TME: 12/25/2019 22:21 CLINICAL HISTORY: 74 years, Female, leg weakness, on plavix COMPARISON: 01/30/2017 CT TECHNIQUE: 187 Images stored on PACS. All CT scanners at this facility use dose modulation, iterative reconstruction, and/or weight based dosing when appropriate to reduce radiation dose to as low as reasonably achievable (ALARA). [facility]: Dose Right [facility]: CareDose [facility]: Dose Right [facility]: Teradose 4D [facility]: [employer] LIMITATIONS: None. FINDINGS: The globes are intact. The paranasal sinuses and mastoid air cells are unremarkable. No displaced or depressed skull fracture. No intra or extra-axial hemorrhage. CT is limited evaluation of acute infarct. No CT evidence for large or territorial acute infarct. Mild age-appropriate atrophy. No mass or midline shift. Minor small vessel ischemic change IMPRESSION: Mild atrophy and small vessel ischemic change TECHNICAL DOCUMENTATION: Quality ID # [id number]: Final reports with documentation of one or more dose reduction techniques (e.g., Automated exposure control, adjustment of the mA and/or kV according to patient size, use of iterative reconstruction technique) copyright 2010 [employer]- All Rights Reserved
[2019-12-25 23:02] LABS: CREATINE KINASE 4483 U/L (30-135)
--- NOTE | 2019-12-25 23:03 | RADIOLOGY REPORT (SQ) ---
EXAM DESCRIPTION: [facility]: XR HIP 2 OR MORE VIEWS Views: 2 CLINICAL HISTORY: 74 years Female; leg weakness, on plavix; COMPARISON: None. FINDINGS: AP pelvis: Alignment is anatomic. Frog-leg left hip: No fracture or dislocation IMPRESSION: 1. No acute findings.
[2019-12-26] MEDS ORDERED: MAGNESIUM HYDROXIDE SUSP 30 ML UDCUP PO PRN (00:36)
[2019-12-26] MEDS ORDERED: PROMETHAZINE HCL INJ 25 MG/1 ML VIAL IV PRN (00:36)
[2019-12-26] MEDS ORDERED: ACETAMINOPHEN 325 MG TABLET PO PRN (00:36)
[2019-12-26] MEDS ORDERED: MAG HYDROX/AL HYDROX/SIMETH SUSP 30 ML UDCUP PO PRN (00:36)
[2019-12-26] MEDS ORDERED: IPRATROPIUM/ALBUTEROL 0.5-2.5 MG/3 ML AMPUL NEB PRN (00:36)
[2019-12-26] MEDS ORDERED: NORMAL SALINE 1000 ML 1,000 ML IV PRN (00:36)
[2019-12-26] MEDS ORDERED: KETOROLAC TROMETHAMINE INJ/PF 30 MG/1 ML SDV IV PRN (00:47)
--- NOTE | 2019-12-26 01:01 | PDOC H&P ---
History of Present Illness Admission Date/PCP: 12/26/19 00:26 Patient complains of: Found down History of Present Illness: MARIEL ALBARRAN is a 74 year old female with a history of hypertension, hyperlipidemia, prediabetes and hyponatremia states that she tripped and fell earlier today. This was at approximately 4:00 AM while she was going to the bathroom. She tripped on a towel. She was unable to get up. She crawled to a bed but was unsuccessful. She called rescue at approximately 3:00 in the afternoon. They came and helped her up. She then tried to use a walker to ambulate and fell due to right ankle pain. She had to call rescue again and they proceeded to bring her to the emergency department. Her right ankle is sore but x-ray shows no fracture. CT scan of the head was unremarkable except for small vessel disease. Laboratory studies revealed polycythemia with a hemoglobin of 16.9. Hyponatremia with a sodium of 128. Total bilirubin eleva renea at 2.5, AST elevated at 116 and her creatinine kinase was 4483. The patient is extremely dry on exam. She will be admitted to the hospitalist service. She was given IV fluids. We will monitor her creatinine kinase as well as laboratory studies. Past Medical History Cardiac Medical History: Reports: Hyperlipidema, Hypertension Pulmonary Medical History: Denies: Asthma, Chronic Obstructive Pulmonary Disease (COPD), Pneumonia EENT Medical History: Denies: Cataracts, Ears, Nose, Throat Neurological Medical History: Denies: Ischemic CVA, Migraine, Seizures Endocrine Medical History: Reports: Other - Metabolic syndrome/prediabetes Renal/ Medical History: Denies: Chronic Kidney Disease Malignancy Medical History: Reports: None GI Medical History: Denies: Diverticulitis, Gastroesophageal Reflux Disease, Hepatitis, Hiatal Hernia Musculoskeltal Medical History: Reports: Arthritis Skin Medical History: Denies: Eczema, Psoriasis Psychiatric Medical History: Reports: Depression Denies: Alcohol Dependency, Substance Abuse, Tobacco Dependency Traumatic Medical History: Reports: None Hematology: Reports: None Infectious Medical History: Reports: None Past Surgical History Past Surgical History: Reports: None Social History Information Source: Patient Lives with: Alone Smoking Status: Former Smoker Electronic Cigarette use?: No Frequency of Alcohol Use: None Hx Recreational Drug Use: No Drugs: None Hx Prescription Drug Abuse: No - Advance Directive Resuscitation Status: Full Code Family History Family History: Reviewed & Not Pertinent, Hypertension, Malignancy, Other - Dementia Parental Family History Reviewed: Yes Children Family History Reviewed: Yes Sibling(s) Family History Reviewed.: Yes Medication/Allergy Home Medications: Atorvastatin Calcium [Lipitor 10 mg Tablet] 10 mg PO QHS #30 tablet 01/31/17 Clopidogrel Bisulfate [Plavix 75 mg Tablet] 75 mg PO DAILY #30 tablet 01/31/17 Metformin HCl [Metformin HCl ER] 500 mg PO BID 12/26/19 RX: Lisinopril [Prinivil 10 mg Tablet] 10 mg PO DAILY 12/26/19 Allergies/Adverse Reactions: escitalopram [From Lexapro] Allergy (Mild, Verified 12/26/19 01:25) Review of Systems All systems: reviewed and no additional remarkable complaints except as stated Musculoskeletal: PRESENT: back pain Neurological: PRESENT: frequent falls - 2 falls today Psychiatric: PRESENT: depression Allergic/Immunologic: PRESENT: seasonal rhinorrhea Physical Exam Vital Signs: Temp Pulse Resp BP Pulse Ox 98.2 F 111 H 20 125/78 93 12/25/19 20:40 12/25/19 20:59 12/25/19 20:59 12/25/19 20:59 12/25/19 20:59 Intake & Output 12/24/19 12/25/19 12/26/19 06:59 06:59 07:59 Weight 125.191 kg General appearance: PRESENT: no acute distress, cooperative, morbidly obese, well-developed, other - Nasal cannula in place Head exam: PRESENT: atraumatic, normocephalic Eye exam: PRESENT: conjunctiva pink, EOMI, PERRLA, scleral icterus - Dirty sclera Ear exam: PRESENT: normal external ear exam. ABSENT: bleeding, drainage Mouth exam: PRESENT: dry mucosa, tongue midline Teeth exam: ABSENT: poor dentation Neck exam: PRESENT: full ROM. ABSENT: carotid bruit, JVD, lymphadenopathy Respiratory exam: PRESENT: clear to auscultation cheng, symmetrical, unlabored. ABSENT: accessory muscle use, prolonged expiratory phas, rales, rhonchi, tachypnea, wheezes Cardiovascular exam: PRESENT: RRR, +S1, +S2. ABSENT: diastolic murmur, systolic murmur Pulses: PRESENT: normal radial pulses, normal dorsalis pedis pul GI/Abdominal exam: PRESENT: hypoactive bowel sounds, soft, other - Protuberant abdomen. ABSENT: guarding, tenderness Rectal exam: PRESENT: deferred Gentrourinary exam: ABSENT: indwelling catheter Extremities exam: PRESENT: other - Left ankle pain with range of motion. ABSENT: joint swelling, pedal edema Musculoskeletal exam: PRESENT: normal inspection. ABSENT: ambulatory - Pain in the left ankle when she tries to ambulate Neurological exam: PRESENT: alert, awake, oriented to person, oriented to place, oriented to time, oriented to situation, CN II-XII grossly intact. ABSENT: motor sensory deficit Psychiatric exam: PRESENT: flat affect. ABSENT: agitated, anxious Focused psych exam: ABSENT: delusional, paranoid, restlessness Skin exam: PRESENT: dry, warm. ABSENT: abrasion, rash Results Laboratory Results: 12/25/19 21:15 12/25/19 21:58 12/25/19 12/25/19 12/25/19 20:43 21:15 21:15 WBC 9.6 RBC 5.69 H Hgb 16.9 H Hct 51.8 H MCV 91 MCH 29.7 MCHC 32.6 RDW 15.9 H Plt Count 223 Seg Neutrophils % Not Reportable Sodium Cancelled Potassium Cancelled Chloride Cancelled Carbon Dioxide Cancelled Anion Gap Cancelled BUN Cancelled Creatinine Cancelled Est GFR ( Amer) Cancelled Est GFR (Non-Af Amer) Cancelled Glucose Cancelled Calcium Cancelled Total Bilirubin Cancelled AST Cancelled Alkaline Phosphatase Cancelled Total Protein Cancelled Albumin Cancelled Urine Color SANDOVAL Urine Appearance SLIGHTLY-CLOUDY Urine pH 5.0 Ur Specific [place] 1.023 Urine Protein 30 H Urine Glucose (UA) NEGATIVE Urine Ketones NEGATIVE Urine Blood NEGATIVE Urine Nitrite NEGATIVE Ur Leukocyte Esterase SMALL H Urine WBC (Auto) 12 Urine RBC (Auto) 2 12/25/19 21:58 WBC RBC Hgb Hct MCV MCH MCHC RDW Plt Count Seg Neutrophils % Sodium 128.0 L Potassium 4.7 Chloride 87 L Carbon Dioxide 33 H Anion Gap 8 BUN 17 Creatinine 0.53 Est GFR ( Amer) > 60 Est GFR (Non-Af Amer) Glucose 101 Calcium 9.0 Total Bilirubin 2.5 H AST 116 H Alkaline Phosphatase 70 Total Protein 6.8 Albumin 3.9 Urine Color Urine Appearance Urine pH Ur Specific [place] Urine Protein Urine Glucose (UA) Urine Ketones Urine Blood Urine Nitrite Ur Leukocyte Esterase Urine WBC (Auto) Urine RBC (Auto) 12/25/19 12/25/19 12/25/19 21:15 21:15 21:58 Creatine Kinase Cancelled CK-MB (CK-2) Cancelled 16.50 H Troponin I Cancelled 0.017 12/25/19 21:58 Creatine Kinase 4483 H CK-MB (CK-2) Troponin I Impressions: Chest X-Ray 12/25/19 00:00 IMPRESSION: No acute process. Previous granulomatous infection. Foot X-Ray 12/25/19 00:00 IMPRESSION: 1. 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 2. Osteophyte formation of the calcaneus with soft tissue ossification of the plantar fascia. Head CT 12/25/19 22:21 IMPRESSION: Mild atrophy and small vessel ischemic change TECHNICAL DOCUMENTATION: Quality ID # [id number]: Final reports with documentation of one or more dose reduction techniques (e.g., Automated exposure control, adjustment of the mA and/or kV according to patient size, use of iterative reconstruction technique) copyright 2011 [employer]- All Rights Reserved Hip X-Ray 12/25/19 22:21 IMPRESSION: 1. No acute findings. Assessment and Plan - Diagnosis (1) Rhabdomyolysis Qualifiers: Rhabdomyolysis type: non-traumatic Qualified Code(s): M62.82 - Rhabdomyolysis Is this a current diagnosis for this admission?: Yes Plan: 12/26/2019 Secondary to patient's prolonged bouts of immobility when she fell to the floor and could not get up. We will monitor serial creatinine kinase enzymes. Will give fluids and monitor intake and output. (2) Left ankle pain Qualifiers: Chronicity: acute Qualified Code(s): M25.572 - Pain in left ankle and joints of left foot Is this a current diagnosis for this admission?: Yes Plan: 12/26/2019 She believes she may have twisted her ankle when she fell. Conservative therapy with ice packs and analgesia. Imaging showed no fracture. Physical therapy has been ordered. (3) Unable to ambulate Is this a current diagnosis for this admission?: Yes Plan: 12/26/2019 Secondary to ankle pain and morbid obesity. Physical therapy has been ordered. (4) Hyponatremia Is this a current diagnosis for this admission?: Yes Plan: 12/26/2019 This should correct with the fluids given for the rhabdo. Will monitor with serial chemistries. (5) Hypertension Qualifiers: Hypertension type: essential hypertension Qualified Code(s): I10 - Essential (primary) hypertension Is this a current diagnosis for this admission?: Yes Plan: 12/26/2019 Good blood pressure control. Continue current medications. (6) Hyperlipidemia Qualifiers: Hyperlipidemia type: unspecified Qualified Code(s): E78.5 - Hyperlipidemia, unspecified Is this a current diagnosis for this admission?: Yes Plan: 12/26/2019 Continue statin therapy. (7) Postnasal drip Is this a current diagnosis for this admission?: Yes Plan: 12/26/2019 Patient reports seasonal allergies. She typically uses Claritin and Flonase. Will order the same. - Time Time Spent with patient: 35 or more minutes Medications reviewed and adjusted accordingly: Yes Anticipated discharge: Home with Homehealth - Inpatient Certification Based on my medical assessment, after consideration of the patient's comorbidities, presenting symptoms, or acuity I expect that the services needed warrant INPATIENT care.: Yes I certify that my determination is in accordance with my understanding of Medicare's requirements for reasonable and necessary INPATIENT services [42 CFR 412.3e].: Yes Medical Necessity: Need For IV Fluids, Need For Continuous Telemetry Monitoring, Need for Pain Control Post Hospital Care: D/C Steel [employer]er Documentation
[2019-12-26] MEDS: HEPARIN SOD (PORCINE) 5,000 UNIT/ML 1 ML VIAL SUBCUT SCH ×3 (05:43→21:30)
[2019-12-26] MEDS ORDERED: HYDRALAZINE HCL 25 MG TABLET PO SCH (06:00)
[2019-12-26] MEDS: METFORMIN HCL 500 MG TABLET PO SCH ×2 (08:21→11:22)
[2019-12-26 08:24] LABS: ANION GAP 6 (5-19); BLOOD UREA NITROGEN 15 mg/dL (7-20); CALCIUM 8.6 mg/dL (8.4-10.2); CARBON DIOXIDE 35 mmol/L (22-30); CHLORIDE 90 mmol/L (98-107); GLUCOSE 114 mg/dL (75-110); POTASSIUM 5.4 mmol/L (3.6-5.0)
[2019-12-26 08:34] LABS: CREATINE KINASE 2856 U/L (30-135)
--- NOTE | 2019-12-26 09:23 | EKG REPORT ---
SEVERITY:- BORDERLINE ECG - SINUS TACHYCARDIA LEFT ATRIAL ABNORMALITY : Confirmed by: Davi Perez MD 26-Dec-2019 09:22:49
[2019-12-26] MEDS ORDERED: ATENOLOL 50 MG TABLET PO SCH (10:00)
[2019-12-26] MEDS ORDERED: LORATADINE 10 MG TABLET PO SCH (10:00)
[2019-12-26] MEDS ORDERED: CLOPIDOGREL BISULFATE 75 MG TABLET PO SCH (10:00)
[2019-12-26] MEDS ORDERED: FAMOTIDINE 20 MG TABLET PO SCH (10:00)
[2019-12-26] MEDS ORDERED: DOCUSATE SODIUM 100 MG CAPSULE PO SCH (10:00)
[2019-12-26] MEDS ORDERED: GUAIFENESIN 600 MG TABLET.SA PO SCH (10:00)
[2019-12-26 10:39] LABS: ARTERIAL BLOOD H2CO3 3.72 mmol/L (1.05-1.35); ARTERIAL BLOOD O2 SATURATION 88.6 % (94-98); ARTERIAL BLOOD PO2 77.4 mmHg (80-100); ARTERIAL BLOOD TOTAL CO2 40.8 mmol/L (21-25)
[2019-12-26 10:43] LABS: ARTERIAL BLOOD FIO2 4L
[2019-12-26 10:45] LABS: ARTERIAL BLOOD PCO2 123.6 mmHg (35-45); ARTERIAL BLOOD PH 7.09 (7.35-7.45)
[2019-12-26] MEDS: FLUTICASONE NASAL SPRAY 50 MCG/SPRY 120 SPRAY/16 GM NASL SCH ×2 (11:20→21:13)
[2019-12-26] MEDS ORDERED: ETOMIDATE INJ/PF 20 MG/10 ML SDV IV ONE ×2 (11:41→14:45)
[2019-12-26] MEDS ORDERED: MIDAZOLAM 2 MG/2 ML INJ ONE ×2 (11:42→17:29)
[2019-12-26] MEDS ORDERED: SODIUM BICARBONATE 8.4% INJ 50 MEQ/50 ML DISP.SYRIN ONE (11:44)
[2019-12-26] MEDS ORDERED: PHARMACY COMMUNICATION ORDER MC NR (12:00)
[2019-12-26] MEDS ORDERED: DEXMEDETOMIDINE IN 0.9 % NACL 400 MCG/100 ML RTUPB IV ONE (13:06)
--- NOTE | 2019-12-26 13:12 | RADIOLOGY REPORT (SQ) ---
EXAM DESCRIPTION: CHEST SINGLE VIEW COMPLETED DATE/TIME: 12/26/2019 12:50 pm REASON FOR STUDY: INTUBATION COMPARISON: 12/25/2019 EXAM PARAMETERS: NUMBER OF VIEWS: One view TECHNIQUE: Single frontal radiograph of the chest. RADIATION DOSE: N/A LIMITATIONS: None. FINDINGS: TEMPORARY SUPPORT DEVICES:ETT in expected location. NG tube courses below the dony-diaphr agm in to the stomach. LUNGS AND PLEURA: Increasing left basilar opacity. Left effusion. No masses. No pneumothorax. MEDIASTINUM AND HILAR STRUCTURES: No masses. Contour normal. HEART AND VASCULAR STRUCTURES: Heart is enlarged. Vascular congestion. Aorta normal for age. BONES: No acute findings. OTHER: No other significant finding. IMPRESSION: Vascular congestion. Increasing left effusion and left basilar opacity. SUPPORT DEVICE(S) IN EXPECTED LOCATIONS. TECHNICAL DOCUMENTATION: JOB ID: [id number] 2010 [employer]- All Rights Reserved Reading location - IP/workstation name: [email or web address]
--- NOTE | 2019-12-26 13:13 | RADIOLOGY REPORT (SQ) ---
EXAM DESCRIPTION: KUB/ABDOMEN (SINGLE VIEW) COMPLETED DATE/TIME: 12/26/2019 12:50 pm REASON FOR STUDY: NGT INSERTION COMPARISON: None. NUMBER OF VIEWS: One view. TECHNIQUE: Supine radiographic image of the abdomen acquired. LIMITATIONS: None. FINDINGS: BOWEL GAS PATTERN: Normal bowel gas pattern. No dilated loops. Marked constipation. CALCIFICATIONS: No suspicious calcifications. SOFT TISSUES: No gross mass or suggestion of organomegaly. HARDWARE: Nasogastric tube tip in the stomach. BONES: No acute fracture. No worrisome bone lesions. OTHER: No other significant finding. IMPRESSION: Marked constipation. Nasogastric tube tip in the stomach. TECHNICAL DOCUMENTATION: JOB ID: [id number] 2010 [employer]- All Rights Reserved Reading location - IP/workstation name: [email or web address]
[2019-12-26 13:20] LABS: ARTERIAL BLOOD BASE EXCESS 2.9 mmol/L; ARTERIAL BLOOD FIO2 40%; ARTERIAL BLOOD H2CO3 1.92 mmol/L (1.05-1.35); ARTERIAL BLOOD HCO3 31.4 mmol/L (20-24); ARTERIAL BLOOD O2 SATURATION 84.8 % (94-98); ARTERIAL BLOOD PCO2 63.8 mmHg (35-45); ARTERIAL BLOOD PH 7.31 (7.35-7.45); ARTERIAL BLOOD PO2 54.7 mmHg (80-100); ARTERIAL BLOOD TOTAL CO2 33.4 mmol/L (21-25)
[2019-12-26] MEDS ORDERED: MAGNESIUM HYDROXIDE SUSP 30 ML UDCUP NG PRN (13:30)
[2019-12-26] MEDS ORDERED: ACETAMINOPHEN 325 MG TABLET NG PRN (13:30)
[2019-12-26] MEDS ORDERED: MAG HYDROX/AL HYDROX/SIMETH SUSP 30 ML UDCUP NG PRN (13:30)
--- NOTE | 2019-12-26 13:42 | Progress Note ---
Provider Note Provider Note: I was called to see patient as she apparently has been lethargic since morning shift. Patient was admitted during the night. It is unclear when she actually became lethargic. Her vital signs have been stable. On exam patient was barely arousable lethargic and with Kussmaul breathing. ABG was done. This revealed a pH of 7.09, and a PCO2 of 123.6. I called to the ICU at this time to attempt to transfer patient but I was unable to speak to the it generalist. Patient was placed on BiPAP pending it generalist evaluation. A few minutes after starting BiPAP and at reevaluation was felt that patient will not benefit from the BiPAP as she remained obtunded. A rapid response was called. After evaluation by the it generalist I was decided to move patient down to ICU due to her respiratory status, profound acidosis and so patient was transferred to the care of the ICU Temp Pulse Resp BP Pulse Ox 98.5 F 109 H 16 125/86 H 96 12/26/19 11:15 12/26/19 11:15 12/26/19 11:32 12/26/19 11:15 12/26/19 11:32 Intake & Output 12/25/19 12/26/19 12/27/19 05:59 06:59 06:59 Intake Total Output Total Balance Weight Obtunded, lethargic, barely arousable Lungs- diminished air entry bilaterally CVS-S1S2 tachycardic Plan to move to ICU
[2019-12-26] MEDS: HYDRALAZINE HCL 25 MG TABLET NG SCH ×2 (14:31→21:13)
[2019-12-26] MEDS: ALBUTEROL SULFATE 0.083% NEB 2.5 MG/3 ML AMPUL NEB SCH ×2 (14:43→20:19)
[2019-12-26] MEDS ORDERED: MIDAZOLAM 2 MG/2 ML INJ IV ONE ×2 (14:45→16:58)
[2019-12-26] MEDS ORDERED: DEXMEDETOMIDINE IN NS 400 MCG/100 ML RTUPB IV PRN (14:46)
[2019-12-26] MEDS ORDERED: ROCURONIUM BROMIDE INJ 50 MG/5 ML VIAL IV ONE ×2 (15:00→16:19)
[2019-12-26] MEDS: METHYLPREDNISOLONE INJ 125 MG/2 ML SDV IV SCH ×2 (17:40→21:31)
--- NOTE | 2019-12-26 17:48 | Operative Report ---
Bedside Procedure - History of Present Illness History of Present Illness: MARIEL ALBARRAN is a 74 year old female with a history of hypertension, hyperlipidemia, prediabetes and hyponatremia states that she tripped and fell earlier today. This was at approximately 4:00 AM while she was going to the bathroom. She tripped on a towel. She was unable to get up. She crawled to a bed but was unsuccessful. She called rescue at approximately 3:00 in the afternoon. They came and helped her up. She then tried to use a walker to ambulate and fell due to right ankle pain. She had to call rescue again and they proceeded to bring her to the emergency department. Her right ankle is sore but x-ray shows no fracture. CT scan of the head was unremarkable except for small vessel disease. Laboratory studies revealed polycythemia with a hemoglobin of 16.9. Hyponatremia with a sodium of 128. Total bilirubin elevated at 2.5, AST elevated at 116 and her creatinine kinase was 4483. The patient is extremely dry on exam. She will be admitted to the hospitalist service. She was given IV fluids. We will monitor her creatinine kinase as well as laboratory studies. Endotracheal intubation procedure note Date: 12/26/2019 Time: 11:59 AM Indication: Acute hypercapnic respiratory failure Ocular Care Aide: Jason Haider MD A timeout was completed verifying correct patient, procedure, site, positioning and special equipment if applicable. The patient was placed in a flat position. Sedation was obtained using Versed 2 mg, etomidate 40 mg. Rocuronium 75 mg was administered. The patient was easily ventilated using an Ambu bag. The glide scope/MAC 4 blade was used and inserted into the oropharynx at which time there was a grade 2 view of the vocal cords. A 7.5 Hungarian endotracheal tube was inserted and visualized going through the vocal cords. The stylette was removed. Colorimetric change was visualized on the CO2 meter. Breath sounds were heard in both lung gallagher equally. The endotracheal tube was placed at 24 cm, measured at the teeth. A chest x-ray was ordered to assess endotracheal tube placement. COMPLICATIONS: None. MEDICATIONS: Versed 2 mg IV single dose Etomidate 40 mg IV single dose Rocuronium 75 mg IV single dose Indication for Procedure: acute hypercapnic respiratory failure Date: 12/26/19 Provider: ASHWINI HAIDER
[2019-12-26] MEDS ORDERED: FUROSEMIDE INJ/PF 40 MG/4 ML SDV IV ONE (18:00)
--- NOTE | 2019-12-26 18:09 | PDOC CRITICAL CARE PROG REPORT ---
General Date:: 12/26/19 ICU Day:: 1 Ventilator Day:: 1 Hospital Day:: 1 Resuscitation Status: Full Code Events in the past 12 to 24 Hours:: This morbidly obese 74-year-old female reformed smoker is seen in consultation at the request of Dr. Ojeda for recommendations on further evaluation and management of altered mental status. Rapid response team was called to the bedside due to acute alteration in mental status/obtunded. At the time of clinical interview, the patient has been placed on BiPAP. She does open her eyes to noxious stimuli; however, she does not answer appropriately. She does not follow commands. BiPAP settings were adjusted at the bedside after review of ABG results, which revealed pH 7.0 with PCO2 120+. While the patient did remain hemodynamically stable during this time, the patient became more arousable; however, she continued to demonstrate inability to protect her airway or follow commands. Consequently, or updating the patient's daughter, the emergent decision to intubate for airway protection and management of acute hypercapnic respiratory failure was made. Apparently, the patient was having frequent episodes of falls at home. This was believed to be related to right ankle pain. X-ray showed no fracture involving the right ankle. CT of the head was unremarkable for acute stroke. She was noted to have sodium 128 and hemoglobin of 16.9 on her initial ER labs. She also resented with a CK total 4483. AST/ALT 116/29, suspicious for recent myoca rdial infarction. Twelve-lead EKG obtained in the emergency department showed a sinus tachycardia without overt ischemic changes. PAST MEDICAL HISTORY: * Hypertension * Hyperlipidemia * Prediabetes/metabolic syndrome * Depression SOCIAL HISTORY: * Tobacco: Reformed smoker * Alcohol: Denies * Illicit drugs: Denies FAMILY HISTORY: Significant for hypertension, malignancy and dementia HOME MEDICATIONS: * Atenolol 50 mg p.o. daily * Flonase nasal spray 1 spray to each nostril daily * Lipitor 10 mg p.o. nightly * Plavix 75 mg p.o. daily * Hydralazine 25 mg p.o. every 8 hours ALLERGIES: No known drug allergies. Review of systems relevant to events:: Neurologic, renal, respiratory, cardiovascular Reason for ICU Addmission:: acute respiratory acidosis - Medications: Medications reviewed and adjusted accordingly: Yes Sedation:: Precedex Physical Exam Vital Signs: Temp Pulse Resp BP Pulse Ox 98.5 F 109 H 16 125/86 H 96 12/26/19 11:15 12/26/19 11:15 12/26/19 11:32 12/26/19 11:15 12/26/19 11:32 Intake & Output 12/25/19 12/26/19 12/27/19 05:59 06:59 06:59 Intake Total Output Total Balance Weight Weight/Height Weight 127.8 kg Height 12.7 cm General appearance: PRESENT: no acute distress, morbidly obese Head exam: PRESENT: atraumatic, normocephalic Mouth exam: PRESENT: moist, tongue midline Teeth exam: PRESENT: poor dentation Neck exam: ABSENT: carotid bruit, JVD, lymphadenopathy, thyromegaly Respiratory exam: PRESENT: decreased breath sounds - In the left lung, rales - Left, rhonchi - Left, wheezes - Left Cardiovascular exam: PRESENT: RRR, tachycardia. ABSENT: diastolic murmur, rubs, systolic murmur Pulses: PRESENT: normal dorsalis pedis pul GI/Abdominal exam: PRESENT: normal bowel sounds, soft, other - Pendulous abdomen, large pannus. ABSENT: distended, guarding, mass, organolmegaly, rebound, tenderness Extremities exam: PRESENT: full ROM. ABSENT: calf tenderness, clubbing, pedal edema Musculoskeletal exam: PRESENT: normal inspection Skin exam: PRESENT: dry, intact, warm. ABSENT: cyanosis, rash Tubes/Lines: PRESENT: Endotracheal Tube, Other - Orogastric tube Laboratory/Radiographs Laboratory Results: 12/25/19 21:15 12/26/19 07:50 12/25/19 12/25/19 12/25/19 20:43 21:15 21:15 WBC 9.6 RBC 5.69 H Hgb 16.9 H Hct 51.8 H MCV 91 MCH 29.7 MCHC 32.6 RDW 15.9 H Plt Count 223 Seg Neutrophils % Not Reportable Carbonic Acid HCO3/H2CO3 Ratio ABG pH ABG pCO2 ABG pO2 ABG HCO3 ABG O2 Saturation ABG Base Excess FiO2 Sodium Cancelled Potassium Cancelled Chloride Cancelled Carbon Dioxide Cancelled Anion Gap Cancelled BUN Cancelled Creatinine Cancelled Est GFR ( Amer) Cancelled Est GFR (Non-Af Amer) Cancelled Glucose Cancelled Calcium Cancelled Magnesium Total Bilirubin Cancelled AST Cancelled Alkaline Phosphatase Cancelled Total Protein Cancelled Albumin Cancelled Urine Color SANDOVAL Urine Appearance SLIGHTLY-CLOUDY Urine pH 5.0 Ur Specific Jackson 1.023 Urine Protein 30 H Urine Glucose (UA) NEGATIVE Urine Ketones NEGATIVE Urine Blood NEGATIVE Urine Nitrite NEGATIVE Ur Leukocyte Esterase SMALL H Urine WBC (Auto) 12 Urine RBC (Auto) 2 12/25/19 12/26/19 12/26/19 21:58 05:35 06:52 WBC RBC Hgb Hct MCV MCH MCHC RDW Plt Count Seg Neutrophils % Carbonic Acid HCO3/H2CO3 Ratio ABG pH ABG pCO2 ABG pO2 ABG HCO3 ABG O2 Saturation ABG Base Excess FiO2 Sodium 128.0 L Cancelled Cancelled Potassium 4.7 Cancelled Cancelled Chloride 87 L Cancelled Cancelled Carbon Dioxide 33 H Cancelled Cancelled Anion Gap 8 Cancelled Cancelled BUN 17 Cancelled Cancelled Creatinine 0.53 Cancelled Cancelled Est GFR ( Amer) > 60 Cancelled Cancelled Est GFR (Non-Af Amer) Cancelled Cancelled Glucose 101 Cancelled Cancelled Calcium 9.0 Cancelled Cancelled Magnesium Cancelled Cancelled Total Bilirubin 2.5 H AST 116 H Alkaline Phosphatase 70 Total Protein 6.8 Albumin 3.9 Urine Color Urine Appearance Urine pH Ur Specific Jackson Urine Protein Urine Glucose (UA) Urine Ketones Urine Blood Urine Nitrite Ur Leukocyte Esterase Urine WBC (Auto) Urine RBC (Auto) 12/26/19 12/26/19 07:50 10:25 WBC RBC Hgb Hct MCV MCH MCHC RDW Plt Count Seg Neutrophils % Carbonic Acid 3.72 H HCO3/H2CO3 Ratio 9:1 ABG pH 7.09 L* ABG pCO2 123.6 H* ABG pO2 77.4 L ABG HCO3 37.0 H ABG O2 Saturation 88.6 L ABG Base Excess 2.0 FiO2 4L Sodium 131.1 L Potassium 5.4 H Chloride 90 L Carbon Dioxide 35 H Anion Gap 6 BUN 15 Creatinine 0.47 L Est GFR ( Amer) > 60 Est GFR (Non-Af Amer) Glucose 114 H Calcium 8.6 Magnesium 2.0 Total Bilirubin AST Alkaline Phosphatase Total Protein Albumin Urine Color Urine Appearance Urine pH Ur Specific Jackson Urine Protein Urine Glucose (UA) Urine Ketones Urine Blood Urine Nitrite Ur Leukocyte Esterase Urine WBC (Auto) Urine RBC (Auto) 12/25/19 12/25/19 12/25/19 21:15 21:15 21:58 Creatine Kinase Cancelled CK-MB (CK-2) Cancelled 16.50 H Troponin I Cancelled 0.017 12/25/19 12/26/19 12/26/19 21:58 05:35 06:52 Creatine Kinase 4483 H Cancelled Cancelled CK-MB (CK-2) Troponin I 12/26/19 07:50 Creatine Kinase 2856 H CK-MB (CK-2) Troponin I Impressions: Chest X-Ray 12/25/19 00:00 IMPRESSION: No acute process. Previous granulomatous infection. Foot X-Ray 12/25/19 00:00 IMPRESSION: 1. 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 2. Osteophyte formation of the calcaneus with soft tissue ossification of the plantar fascia. Head CT 12/25/19 22:21 IMPRESSION: Mild atrophy and small vessel ischemic change TECHNICAL DOCUMENTATION: Quality ID # 436: Final reports with documentation of one or more dose reduction techniques (e.g., Automated exposure control, adjustment of the mA and/or kV according to patient size, use of iterative reconstruction technique) copyright 2011 [employer]- All Rights Reserved Hip X-Ray 12/25/19 22:21 IMPRESSION: 1. No acute findings. All labs, radiographs, diagnostic studies and EKGs were personally reviewed: Yes In addition, reports of radiographic and diagnostic studies were read: Yes Assessment and Plan - Diagnosis (1) Acute hypercapnic respiratory failure Is this a current diagnosis for this admission?: Yes Plan: Titrate vent settings based on ABG results. Close neurologic monitoring. No sedation until the patient starts to demonstrate improvement in neurological exam. While my clinical suspicion leans toward CHF exacerbation/volume overload and "cardiac asthma", the patient is a reformed smoker and is previously required bronchodilator therapy during previous hospitalizations (according to the patient's family). Consequently, I will empirically start IV steroids along with scheduled albuterol. Of note, the patient's sister reports numerous episodes of witnessed sleep apnea. Certainly, the patient demonstrates a body habitus that raises high suspicion for sleep disordered breathing. Prior to hospital discharge, the patient should be screened for chronic hypercapnic respiratory failure (as suggested by her most recent ABG results), as this may provide an avenue by which she would be able to get a home ventilator system (without having to await diagnostic polysomnography). (2) Hyperkalemia Is this a current diagnosis for this admission?: Yes Plan: Likely secondary to muscle injury/breakdown. Monitor K, creatinine. Furosemide 20 mg IV single dose. (3) Hyponatremia Is this a current diagnosis for this admission?: Yes Plan: Check proBNP. I suspect it will be significantly elevated, warranting 2D echocardiographic interrogation and possible further cardiac work-up. (4) Elevated CK Is this a current diagnosis for this admission?: Yes Plan: Compatible with muscle injury (related to fall). I doubt that this was reflective of true rhabdomyolysis. Trend CK-total. Troponin and pro-BNP were within normal limits. (5) Fall Qualifiers: Encounter type: initial encounter Qualified Code(s): W19.XXXA - Unspecified fall, initial encounter Is this a current diagnosis for this admission?: Yes Plan Summary: Family (daughter, sister, nephew) at bedside. Updated. Critical Time Critical Time (minutes): 150 Level of Care: ICU -: 1. The care of a critical patient is a dynamic process. This note is a textiles sales representative synopsis but static in nature. The timeframe for treatments given in order is not necessarily the actual time these treatments may have been done. 2. This patient requires critical care secondary to ongoing requirements for therapy not offered or safe outside the critical care environment. Transfer to a lower level of care will result in altered life or limb morbidity and mortality. 3. Multidisciplinary rounds completed. 4. ABCDE bundle addressed.
[2019-12-26] MEDS: METFORMIN HCL 500 MG TABLET NG SCH (18:40)
[2019-12-26] MEDS: GUAIFENESIN SYRP 200 MG/10 ML UDC NG SCH ×2 (18:47→23:21)
[2019-12-26] MEDS: DOCUSATE SODIUM 100 MG/10 ML UDC NG SCH (18:47)
[2019-12-26 18:51] LABS: ANION GAP 7 (5-19); BLOOD UREA NITROGEN 20 mg/dL (7-20); CALCIUM 8.3 mg/dL (8.4-10.2); CARBON DIOXIDE 32 mmol/L (22-30); CHLORIDE 92 mmol/L (98-107); GLUCOSE 89 mg/dL (75-110); POTASSIUM 4.6 mmol/L (3.6-5.0)
[2019-12-26 19:13] LABS: ARTERIAL BLOOD BASE EXCESS 5.6 mmol/L; ARTERIAL BLOOD H2CO3 1.26 mmol/L (1.05-1.35); ARTERIAL BLOOD HCO3 29.8 mmol/L (20-24); ARTERIAL BLOOD PCO2 41.7 mmHg (35-45); ARTERIAL BLOOD PH 7.47 (7.35-7.45); ARTERIAL BLOOD PO2 52.2 mmHg (80-100); ARTERIAL BLOOD TOTAL CO2 31.1 mmol/L (21-25)
[2019-12-26 19:14] LABS: ARTERIAL BLOOD FIO2 40%
[2019-12-26] MEDS: RINGERS SOLUTION,LACTATED 1,000 ML IV PRN (20:00)
[2019-12-26] MEDS: FAMOTIDINE 20 MG TABLET NG SCH (21:31)
[2019-12-26] MEDS: ATORVASTATIN CALCIUM 10 MG TABLET NG SCH (21:31)
[2019-12-26] MEDS: FENTANYL CITRATE/PF 600 MCG/60 ML BAG IV PRN (22:05)
[2019-12-27] MEDS: ALBUTEROL SULFATE 0.083% NEB 2.5 MG/3 ML AMPUL NEB SCH ×4 (01:34→20:23)
[2019-12-27 04:38] LABS: ALBUMIN 3.1 g/dL (3.5-5.0); ALKALINE PHOSPHATASE 44 U/L (38-126); ANION GAP 10 (5-19); ASPARTATE AMINO TRANSFERASE 77 U/L (14-36); BILIRUBIN,DIRECT 0.4 mg/dL (0.0-0.4); BILIRUBIN,TOTAL 2.2 mg/dL (0.2-1.3); BLOOD UREA NITROGEN 23 mg/dL (7-20); CALCIUM 8.4 mg/dL (8.4-10.2); CARBON DIOXIDE 29 mmol/L (22-30); CHLORIDE 92 mmol/L (98-107); CREATINE KINASE 1150 U/L (30-135); GLUCOSE 172 mg/dL (75-110); POTASSIUM 4.3 mmol/L (3.6-5.0); TOTAL PROTEIN 5.6 g/dL (6.3-8.2)
[2019-12-27] MEDS: HYDRALAZINE HCL 25 MG TABLET NG SCH ×3 (05:11→22:48)
[2019-12-27] MEDS: HEPARIN SOD (PORCINE) 5,000 UNIT/ML 1 ML VIAL SUBCUT SCH ×3 (05:21→22:38)
[2019-12-27] MEDS: METHYLPREDNISOLONE INJ 125 MG/2 ML SDV IV SCH ×3 (05:21→22:39)
[2019-12-27] MEDS ORDERED: GUAIFENESIN SYRP 200 MG/10 ML UDC ONE (05:38)
[2019-12-27] MEDS: GUAIFENESIN SYRP 200 MG/10 ML UDC NG SCH ×3 (06:05→18:04)
--- NOTE | 2019-12-27 08:18 | RADIOLOGY REPORT (SQ) ---
EXAM DESCRIPTION: CHEST SINGLE VIEW COMPLETED DATE/TIME: 12/27/2019 6:02 am REASON FOR STUDY: acute respiratory failure COMPARISON: 12/26/2019 EXAM PARAMETERS: NUMBER OF VIEWS: One view. TECHNIQUE: Single frontal radiographic view of the chest acquired. RADIATION DOSE: NA LIMITATIONS: None. FINDINGS: LUNGS AND PLEURA: Stable left basilar opacity with obscuration of the left hemidiaphragm, mildly improved from prior. Unremarkable right hemithorax. No large effusion. No pneumothorax. MEDIASTINUM AND HILAR STRUCTURES: No masses. Contour normal. HEART AND VASCULAR STRUCTURES: Enlarged, stable. Central vascular congestion. Aortic atherosclerosi s and tortuosity. BONES: No acute findings. HARDWARE: Endotracheal tube tip overlies midthoracic trachea. Enteric tube tip overlies gastric body . OTHER: No other significant finding. IMPRESSION: Stable chest with persistent left basilar opacity, possibly atelectasis or infection. Stable enlarged cardiac silhouette and central vascular congestion. TECHNICAL DOCUMENTATION: JOB ID: [id number] 2010 [employer]- All Rights Reserved Reading location - IP/workstation name: [email or web address]
[2019-12-27] MEDS: FENTANYL CITRATE/PF 600 MCG/60 ML BAG IV PRN (08:35)
[2019-12-27] MEDS: METFORMIN HCL 500 MG TABLET NG SCH ×2 (08:36→16:53)
[2019-12-27] MEDS: RINGERS SOLUTION,LACTATED 1,000 ML IV PRN (08:36)
[2019-12-27] MEDS: FLUTICASONE NASAL SPRAY 50 MCG/SPRY 120 SPRAY/16 GM NASL SCH ×2 (09:34→22:37)
[2019-12-27] MEDS: ATENOLOL 50 MG TABLET NG SCH ×3 (09:35→18:04)
[2019-12-27] MEDS: DOCUSATE SODIUM 100 MG/10 ML UDC NG SCH ×2 (09:35→18:04)
[2019-12-27] MEDS: FAMOTIDINE 20 MG TABLET NG SCH ×2 (09:36→22:49)
[2019-12-27] MEDS ORDERED: CLOPIDOGREL BISULFATE 75 MG TABLET NG SCH (10:00)
[2019-12-27] MEDS ORDERED: ATENOLOL 50 MG TABLET NG SCH (10:00)
[2019-12-27] MEDS ORDERED: LORATADINE 10 MG TABLET NG SCH (10:00)
--- NOTE | 2019-12-27 12:32 | PDOC CRITICAL CARE PROG REPORT ---
General Date:: 12/27/19 ICU Day:: 1 Ventilator Day:: 1 Hospital Day:: 1 Resuscitation Status: Full Code Events in the past 12 to 24 Hours:: Extubated and doing well. Review of systems relevant to events:: Respiratory Reason for ICU Addmission:: acute respiratory acidosis and on ventilator. - Medications: Medications reviewed and adjusted accordingly: Yes Vasopressors:: None Sedation:: None Physical Exam Vital Signs: Temp Pulse Resp BP Pulse Ox 99.0 F 93 16 141/80 H 95 12/27/19 08:00 12/27/19 10:00 12/27/19 10:16 12/27/19 10:16 12/27/19 10:16 Intake & Output 12/26/19 12/27/19 12/28/19 06:59 06:59 06:59 Intake Total 386 570 Output Total 1240 110 Balance -854 460 Weight 127.4 kg Weight/Height Weight 127.4 kg Height 5 in General appearance: PRESENT: no acute distress, well-developed, well-nourished Head exam: PRESENT: atraumatic, normocephalic Eye exam: PRESENT: conjunctiva pink, EOMI, PERRLA. ABSENT: scleral icterus Ear exam: PRESENT: normal external ear exam Mouth exam: PRESENT: moist, tongue midline Respiratory exam: PRESENT: clear to auscultation cheng. ABSENT: rales, rhonchi, wheezes Cardiovascular exam: PRESENT: RRR. ABSENT: diastolic murmur, rubs, systolic murmur GI/Abdominal exam: PRESENT: normal bowel sounds, soft. ABSENT: distended, guarding, mass, organolmegaly, rebound, tenderness Rectal exam: PRESENT: deferred Gentrourinary exam: PRESENT: indwelling catheter Extremities exam: PRESENT: full ROM. ABSENT: calf tenderness, clubbing, pedal edema Musculoskeletal exam: PRESENT: normal inspection Neurological exam: PRESENT: alert, awake, oriented to person, oriented to place, oriented to time, oriented to situation, CN II-XII grossly intact. ABSENT: motor sensory deficit Psychiatric exam: PRESENT: appropriate affect, normal mood. ABSENT: homicidal ideation, suicidal ideation Skin exam: PRESENT: dry, intact, warm. ABSENT: cyanosis, rash Laboratory/Radiographs Laboratory Results: 12/25/19 21:15 12/27/19 04:05 12/26/19 12/26/1912/25/20 13:03 18:02 18:25 Carbonic Acid 1.92 H HCO3/H2CO3 Ratio 16:1 ABG pH 7.31 L ABG pCO2 63.8 H ABG pO2 54.7 L ABG HCO3 31.4 H ABG O2 Saturation 84.8 L ABG Base Excess 2.9 FiO2 40% Sodium 131.4 L Potassium 4.6 Chloride 92 L Carbon Dioxide 32 H Anion Gap 7 BUN 20 Creatinine 0.71 Est GFR ( Amer) > 60 Glucose 89 Serum Osmolality Calcium 8.3 L Magnesium 1.8 Total Bilirubin AST Alkaline Phosphatase Total Protein Albumin Urine Osmolality 659 12/26/19 12/26/19 12/27/19 18:25 18:55 04:05 Carbonic Acid 1.26 HCO3/H2CO3 Ratio 23:1 ABG pH 7.47 H ABG pCO2 41.7 ABG pO2 52.2 L ABG HCO3 29.8 H ABG O2 Saturation 89.0 L ABG Base Excess 5.6 FiO2 40% Sodium 130.7 L Potassium 4.3 Chloride 92 L Carbon Dioxide 29 Anion Gap 10 BUN 23 H Creatinine 0.57 Est GFR ( Amer) > 60 Glucose 172 H Serum Osmolality 280 Calcium 8.4 Magnesium 1.9 Total Bilirubin 2.2 H AST 77 H Alkaline Phosphatase 44 Total Protein 5.6 L Albumin 3.1 L Urine Osmolality 12/25/19 12/25/19 12/25/19 21:15 21:15 21:58 Creatine Kinase Cancelled CK-MB (CK-2) Cancelled 16.50 H Troponin I Cancelled 0.017 NT-Pro-B Natriuret Pep 12/25/19 12/26/19 12/26/19 21:58 05:35 06:52 Creatine Kinase 4483 H Cancelled Cancelled CK-MB (CK-2) Troponin I NT-Pro-B Natriuret Pep 12/26/19 12/26/19 12/27/19 07:50 15:10 04:05 Creatine Kinase 2856 H 1150 H CK-MB (CK-2) Troponin I NT-Pro-B Natriuret Pep 257 Impressions: Foot X-Ray 12/25/19 00:00 IMPRESSION: 1. 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 2. Osteophyte formation of the calcaneus with soft tissue ossification of the plantar fascia. Head CT 12/25/19 22:21 IMPRESSION: Mild atrophy and small vessel ischemic change TECHNICAL DOCUMENTATION: Quality ID # 436: Final reports with documentation of one or more dose reduction techniques (e.g., Automated exposure control, adjustment of the mA and/or kV according to patient size, use of iterative reconstruction technique) copyright 2011 [employer]- All Rights Reserved Hip X-Ray 12/25/19 22:21 IMPRESSION: 1. No acute findings. KUB X-Ray 12/26/19 00:00 IMPRESSION: Marked constipation. Nasogastric tube tip in the stomach. Chest X-Ray 12/27/19 05:00 IMPRESSION: Stable chest with persistent left basilar opacity, possibly atelectasis or infection. Stable enlarged cardiac silhouette and central vascular congestion. EKG: Atrial fibrillation. All labs, radiographs, diagnostic studies and EKGs were personally reviewed: Yes In addition, reports of radiographic and diagnostic studies were read: Yes Assessment and Plan - Diagnosis (1) Acute hypercapnic respiratory failure Is this a current diagnosis for this admission?: Yes Plan: Resolved and extubated. (2) Left ankle pain Qualifiers: Chronicity: acute Qualified Code(s): M25.572 - Pain in left ankle and joints of left foot Is this a current diagnosis for this admission?: Yes Plan: Chronic, no fracture or dislocation. Will get PT involved (3) Rhabdomyolysis Qualifiers: Rhabdomyolysis type: non-traumatic Qualified Code(s): M62.82 - Rhabdomyol ysis Is this a current diagnosis for this admission?: Yes Plan: Mild and resolving Plan Summary: Plan to get patient OOB and moving with PT. Critical Time Critical Time (minutes): 35 Level of Care: ICU Anticipated discharge: Home Within: within 72 hours -: 1. The care of a critical patient is a dynamic process. This note is a representative government relations synopsis but static in nature. The timeframe for treatments given in order is not necessarily the actual time these treatments may have been done. 2. This patient requires critical care secondary to ongoing requirements for th erapy not offered or safe outside the critical care environment. Transfer to a lower level of care will result in altered life or limb morbidity and mortality. 3. Multidisciplinary rounds completed. 4. ABCDE bundle addressed.
[2019-12-27] MEDS ORDERED: MAGNESIUM HYDROXIDE SUSP 30 ML UDCUP PO PRN (22:30)
[2019-12-27] MEDS ORDERED: MAG HYDROX/AL HYDROX/SIMETH SUSP 30 ML UDCUP PO PRN (22:30)
[2019-12-27] MEDS: ATORVASTATIN CALCIUM 10 MG TABLET NG SCH (22:49)
[2019-12-28] MEDS: GUAIFENESIN SYRP 200 MG/10 ML UDC PO SCH ×5 (00:14→23:58)
[2019-12-28] MEDS: ALBUTEROL SULFATE 0.083% NEB 2.5 MG/3 ML AMPUL NEB SCH ×4 (02:17→20:25)
[2019-12-28 04:17] LABS: ANION GAP 6 (5-19); BLOOD UREA NITROGEN 27 mg/dL (7-20); CALCIUM 8.5 mg/dL (8.4-10.2); CARBON DIOXIDE 33 mmol/L (22-30); CHLORIDE 90 mmol/L (98-107); CREATINE KINASE 583 U/L (30-135); GLUCOSE 138 mg/dL (75-110)
[2019-12-28 04:45] LABS: POTASSIUM 5.3 mmol/L (3.6-5.0)
[2019-12-28] MEDS: HYDRALAZINE HCL 25 MG TABLET PO SCH ×3 (06:18→21:52)
[2019-12-28] MEDS: METHYLPREDNISOLONE INJ 125 MG/2 ML SDV IV SCH ×3 (06:20→22:00)
[2019-12-28] MEDS: HEPARIN SOD (PORCINE) 5,000 UNIT/ML 1 ML VIAL SUBCUT SCH ×3 (06:20→21:58)
[2019-12-28] MEDS ORDERED: CLOPIDOGREL BISULFATE 75 MG TABLET PO SCH (10:00)
[2019-12-28] MEDS: FLUTICASONE NASAL SPRAY 50 MCG/SPRY 120 SPRAY/16 GM NASL SCH ×2 (11:15→22:00)
[2019-12-28] MEDS: DOCUSATE SODIUM 100 MG/10 ML UDC PO SCH ×2 (11:15→17:35)
[2019-12-28] MEDS: LORATADINE 10 MG TABLET PO SCH (11:16)
[2019-12-28] MEDS: METFORMIN HCL 500 MG TABLET PO SCH ×2 (11:16→16:35)
[2019-12-28] MEDS: ATENOLOL 50 MG TABLET PO SCH ×2 (11:17→19:10)
[2019-12-28] MEDS: FAMOTIDINE 20 MG TABLET PO SCH ×2 (11:17→21:59)
--- NOTE | 2019-12-28 12:04 | EKG REPORT ---
SEVERITY:- ABNORMAL ECG - ATRIAL FIBRILLATION, V-RATE 63-104 : Confirmed by: Maximo Agosto 28-Dec-2019 12:04:05
--- NOTE | 2019-12-28 12:53 | PDOC CRITICAL CARE PROG REPORT ---
General Date:: 12/28/19 Hospital Day:: 2 Resuscitation Status: Full Code Events in the past 12 to 24 Hours:: Extubated, still weak. Review of systems relevant to events:: Respiratory. Reason for ICU Addmission:: Extubated, weak, needs rehab. - Medications: Medications reviewed and adjusted accordingly: Yes Vasopressors:: None Sedation:: None Physical Exam Vital Signs: Temp Pulse Resp BP Pulse Ox 98.4 F 65 18 110/70 98 12/28/19 12:34 12/28/19 12:34 12/28/19 12:34 12/28/19 12:34 12/28/19 12:34 Intake & Output 12/27/19 12/28/19 12/29/19 06:59 06:59 06:59 Intake Total 386 2181 Output Total 1240 860 250 Balance -854 1321 -250 Weight 127.4 kg 131.3 kg Weight/Height Weight 131.3 kg Height 5 ft General appearance: PRESENT: no acute distress, morbidly obese Head exam: PRESENT: atraumatic, normocephalic Eye exam: PRESENT: conjunctiva pink, EOMI, PERRLA. ABSENT: scleral icterus Ear exam: PRESENT: normal external ear exam Mouth exam: PRESENT: moist, tongue midline Respiratory exam: PRESENT: clear to auscultation cheng, decreased breath sounds. ABSENT: rales, rhonchi, wheezes Cardiovascular exam: PRESENT: irregular rhythm Vascular exam: PRESENT: normal capillary refill GI/Abdominal exam: PRESENT: normal bowel sounds, soft. ABSENT: distended, guarding, mass, organolmegaly, rebound, tenderness Rectal exam: PRESENT: deferred Extremities exam: PRESENT: full ROM. ABSENT: calf tenderness, clubbing, pedal edema Musculoskeletal exam: PRESENT: normal inspection Neurological exam: PRESENT: alert, awake, oriented to person, oriented to place, oriented to time, oriented to situation, CN II-XII grossly intact. ABSENT: motor sensory deficit Psychiatric exam: PRESENT: appropriate affect, normal mood. ABSENT: homicidal ideation, suicidal ideation Skin exam: PRESENT: dry, intact, warm. ABSENT: cyanosis, rash Laboratory/Radiographs Laboratory Results: 12/25/19 21:15 12/28/19 03:36 12/28/19 03:36 Sodium 128.7 L Potassium 5.3 H D Chloride 90 L Carbon Dioxide 33 H Anion Gap 6 BUN 27 H Creatinine 0.54 Est GFR ( Amer) > 60 Glucose 138 H Calcium 8.5 Magnesium 2.3 12/26/19 13:30 Tracheal Aspirate Gram Stain - Final 12/26/19 13:30 Tracheal Aspirate Sputum Culture - Final NORMAL SHANNON 12/25/19 12/25/19 12/25/19 21:15 21:15 21:58 Creatine Kinase Cancelled CK-MB (CK-2) Cancelled 16.50 H Troponin I Cancelled 0.017 NT-Pro-B Natriuret Pep 12/25/19 12/26/19 12/26/19 21:58 05:35 06:52 Creatine Kinase 4483 H Cancelled Cancelled CK-MB (CK-2) Troponin I NT-Pro-B Natriuret Pep 12/26/19 12/26/19 12/27/19 07:50 15:10 04:05 Creatine Kinase 2856 H 1150 H CK-MB (CK-2) Troponin I NT-Pro-B Natriuret Pep 257 12/28/19 03:36 Creatine Kinase 583 H CK-MB (CK-2) Troponin I NT-Pro-B Natriuret Pep Impressions: Foot X-Ray 12/25/19 00:00 IMPRESSION: 1. 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 2. Osteophyte formation of the calcaneus with soft tissue ossification of the plantar fascia. Head CT 12/25/19 22:21 IMPRESSION: Mild atrophy and small vessel ischemic change TECHNICAL DOCUMENTATION: Quality ID # 436: Final reports with documentation of one or more dose reduction techniques (e.g., Automated exposure control, adjustment of the mA and/or kV according to patient size, use of iterative reconstruction technique) copyright 2010 [employer]- All Rights Reserved Hip X-Ray 12/25/19 22:21 IMPRESSION: 1. No acute findings. KUB X-Ray 12/26/19 00:00 IMPRESSION: Marked constipation. Nasogastric tube tip in the stomach. Chest X-Ray 12/27/19 05:00 IMPRESSION: Stable chest with persistent left basilar opacity, possibly atelectasis or infection. Stable enlarged cardiac silhouette and central vascular congestion. EKG: Atrial fibrillation. Rate 60-100. All labs, radiographs, diagnostic studies and EKGs were personally reviewed: Yes In addition, reports of radiographic and diagnostic studies were read: Yes Assessment and Plan - Diagnosis (1) Acute hypercapnic respiratory failure Is this a current diagnosis for this admission?: Yes Plan: Resolved. Weaning O2. (2) Left ankle pain Qualifiers: Chronicity: acute Qualified Code(s): M25.572 - Pain in left ankle and joints of left foot Is this a current diagnosis for this admission?: Yes Plan: To have PT today. (3) Rhabdomyolysis Qualifiers: Rhabdomyolysis type: non-traumatic Qualified Code(s): M62.82 - Rhab domyolysis Is this a current diagnosis for this admission?: Yes Plan: Improved and nearly resolved. (4) Atrial fibrillation Qualifiers: Atrial fibrillation type: unspecified Qualified Code(s): I48.91 - Unspecified atrial fibrillation Is this a current diagnosis for this admission?: Yes Plan: Rate controlled. Start eliquis. Plan Summary: Needs PT and likely rehab. Critical Time Critical Time (minutes): 25 Level of Care: TELE Anticipated discharge: SNF Within: within 72 hours -: 1. The care of a critical patient is a dynamic process. This note is a dermatology sales representative synopsis but static in nature. The timeframe for treatments given in order is not necessarily the actual time these treatments may have been done. 2. This patient requires critical care secondary to ongoing requirements for therapy not offered or safe outside the critical care environment. Transfer to a lower level of care will result in altered life or limb morbidity and mortality. 3. Multidisciplinary rounds completed. 4. ABCDE bundle addressed.
[2019-12-28] MEDS ORDERED: DEXTROSE 40% GEL 15 GM TUBE PO PRN ×2 (12:55)
[2019-12-28] MEDS ORDERED: DEXTROSE 50%-WATER 25 GM/50 ML DISP.SYRIN IV PRN ×2 (12:55)
[2019-12-28] MEDS ORDERED: GLUCAGON,HUMAN RECOMB 1 MG INJ IM PRN (12:55)
[2019-12-28] MEDS: ACETAMINOPHEN 325 MG TABLET PO PRN (16:35)
[2019-12-28] MEDS: INSULIN REG, HUMAN 100 UNIT/ML 3 ML VIAL (PYX) SUBCUT SCH ×2 (17:34→23:58)
[2019-12-28] MEDS: APIXABAN 5 MG TABLET PO SCH (17:35)
[2019-12-28] MEDS: PHENOL/SODIUM PHENOLATE 100 SPRAY/177 ML BOTTLE PO PRN (17:39)
[2019-12-28] MEDS: ATORVASTATIN CALCIUM 10 MG TABLET PO SCH (21:59)
[2019-12-29] MEDS: ALBUTEROL SULFATE 0.083% NEB 2.5 MG/3 ML AMPUL NEB SCH ×4 (02:45→19:29)
[2019-12-29 03:33] LABS: HEMATOCRIT 46.6 % (36.0-47.0); HEMOGLOBIN 15.1 g/dL (12.0-15.5); MEAN CORPUSCULAR HEMOGLOBIN 29.9 pg (27.0-33.4); MEAN CORPUSCULAR HGB CONC 32.5 g/dL (32.0-36.0); MEAN CORPUSCULAR VOLUME 92 fl (80-97); PLATELET COUNT 216 10^3/uL (150-450); RED BLOOD COUNT 5.06 10^6/uL (3.72-5.28); RED CELL DISTRIBUTION WIDTH 15.4 % (11.5-14.0); WHITE BLOOD COUNT 9.2 10^3/uL (4.0-10.5)
[2019-12-29 03:56] LABS: ANION GAP 5 (5-19); BLOOD UREA NITROGEN 21 mg/dL (7-20); CALCIUM 8.5 mg/dL (8.4-10.2); CARBON DIOXIDE 36 mmol/L (22-30); CHLORIDE 90 mmol/L (98-107); GLUCOSE 153 mg/dL (75-110); POTASSIUM 5.1 mmol/L (3.6-5.0)
[2019-12-29] MEDS: HYDRALAZINE HCL 25 MG TABLET PO SCH ×3 (06:15→21:24)
[2019-12-29] MEDS: INSULIN REG, HUMAN 100 UNIT/ML 3 ML VIAL (PYX) SUBCUT SCH ×3 (06:16→17:46)
[2019-12-29] MEDS: HEPARIN SOD (PORCINE) 5,000 UNIT/ML 1 ML VIAL SUBCUT SCH (06:16)
[2019-12-29] MEDS: GUAIFENESIN SYRP 200 MG/10 ML UDC PO SCH ×3 (06:17→17:48)
[2019-12-29] MEDS: METHYLPREDNISOLONE INJ 125 MG/2 ML SDV IV SCH ×3 (06:17→21:21)
--- NOTE | 2019-12-29 08:35 | RADIOLOGY REPORT (SQ) ---
EXAM DESCRIPTION: CHEST SINGLE VIEW COMPLETED DATE/TIME: 12/29/2019 5:36 am REASON FOR STUDY: Respiratory Failure COMPARISON: 12/27/2019 EXAM PARAMETERS: NUMBER OF VIEWS: One view. TECHNIQUE: Single frontal radiographic view of the chest acquired. RADIATION DOSE: NA LIMITATIONS: None. FINDINGS: LUNGS AND PLEURA: The patient has been extubated. No consolidation. Probable small left effusion with minimal left basilar atelectasis. NG tube has been removed as well. No pneumothorax. MEDIASTINUM AND HILAR STRUCTURES: No masses. Contour normal. HEART AND VASCULAR STRUCTURES: Heart normal in size. Normal vasculature. BONES: No acute findings. HARDWARE: None in the chest. OTHER: No other significant finding. IMPRESSION: Minimal left basilar atelectasis and probable small left effusion following extubation. No consolidation. TECHNICAL DOCUMENTATION: JOB ID: [id number] 2010 [employer]- All Rights Reserved Reading location - IP/workstation name: [email or web address]
[2019-12-29] MEDS: METFORMIN HCL 500 MG TABLET PO SCH ×2 (09:08→17:47)
[2019-12-29] MEDS: FAMOTIDINE 20 MG TABLET PO SCH ×2 (09:08→21:21)
[2019-12-29] MEDS: FLUTICASONE NASAL SPRAY 50 MCG/SPRY 120 SPRAY/16 GM NASL SCH ×2 (09:08→21:21)
[2019-12-29] MEDS: APIXABAN 5 MG TABLET PO SCH ×2 (09:08→17:47)
[2019-12-29] MEDS: DOCUSATE SODIUM 100 MG/10 ML UDC PO SCH ×2 (09:08→17:47)
[2019-12-29] MEDS: LORATADINE 10 MG TABLET PO SCH (09:09)
[2019-12-29] MEDS: ATENOLOL 50 MG TABLET PO SCH ×2 (09:09→17:47)
--- NOTE | 2019-12-29 09:20 | PDOC CRITICAL CARE PROG REPORT ---
General Date:: 12/29/19 Hospital Day:: 3 Resuscitation Status: Full Code Events in the past 12 to 24 Hours:: Received PT. Needs rehab. Review of systems relevant to events:: Pulmonary. Reason for ICU Addmission:: Extubated, weak, needs rehab. - Medications: Medications reviewed and adjusted accordingly: Yes Vasopressors:: None Sedation:: None Physical Exam Vital Signs: Temp Pulse Resp BP Pulse Ox 97.4 F 74 16 134/87 H 95 12/29/19 06:00 12/29/19 06:00 12/29/19 06:00 12/29/19 08:09 12/29/19 09:00 Intake & Output 12/28/19 12/29/19 12/30/19 06:59 06:59 06:59 Intake Total 2181 150 Output Total 860 750 Balance 1321 -600 Weight 131.3 kg 131.9 kg Weight/Height Weight 131.9 kg Height 5 ft General appearance: PRESENT: no acute distress, well-developed, well-nourished Head exam: PRESENT: atraumatic, normocephalic Eye exam: PRESENT: conjunctiva pink, EOMI, PERRLA. ABSENT: scleral icterus Ear exam: PRESENT: normal external ear exam Mouth exam: PRESENT: moist, tongue midline Respiratory exam: PRESENT: clear to auscultation cheng, decreased breath sounds. ABSENT: rales, rhonchi, wheezes Cardiovascular exam: PRESENT: other - Paced Vascular exam: PRESENT: normal capillary refill GI/Abdominal exam: PRESENT: normal bowel sounds, soft. ABSENT: distended, guarding, mass, organolmegaly, rebound, tenderness Rectal exam: PRESENT: deferred Extremities exam: PRESENT: full ROM. ABSENT: calf tenderness, clubbing, pedal edema Neurological exam: PRESENT: alert, awake, oriented to person, oriented to place, oriented to time, oriented to situation, CN II-XII grossly intact. ABSENT: motor sensory deficit Psychiatric exam: PRESENT: appropriate affect, normal mood. ABSENT: homicidal ideation, suicidal ideation Skin exam: PRESENT: dry, intact, warm. ABSENT: cyanosis, rash Laboratory/Radiographs Laboratory Results: 12/29/19 03:24 12/29/19 03:24 12/29/19 12/29/19 03:24 03:24 WBC 9.2 RBC 5.06 Hgb 15.1 Hct 46.6 MCV 92 MCH 29.9 MCHC 32.5 RDW 15.4 H Plt Count 216 Sodium 131.1 L Potassium 5.1 H Chloride 90 L Carbon Dioxide 36 H Anion Gap 5 BUN 21 H Creatinine 0.47 L Est GFR ( Amer) > 60 Glucose 153 H Calcium 8.5 12/26/19 13:30 Tracheal Aspirate Gram Stain - Final 12/26/19 13:30 Tracheal Aspirate Sputum Culture - Final NORMAL SHANNON 12/25/19 12/25/19 12/25/19 21:15 21:15 21:58 Creatine Kinase Cancelled CK-MB (CK-2) Cancelled 16.50 H Troponin I Cancelled 0.017 NT-Pro-B Natriuret Pep 12/25/19 12/26/19 12/26/19 21:58 05:35 06:52 Creatine Kinase 4483 H Cancelled Cancelled CK-MB (CK-2) Troponin I NT-Pro-B Natriuret Pep 12/26/19 12/26/19 12/27/19 07:50 15:10 04:05 Creatine Kinase 2856 H 1150 H CK-MB (CK-2) Troponin I NT-Pro-B Natriuret Pep 257 12/28/19 03:36 Creatine Kinase 583 H CK-MB (CK-2) Troponin I NT-Pro-B Natriuret Pep Impressions: Foot X-Ray 12/25/19 00:00 IMPRESSION: 1. 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 2. Osteophyte formation of the calcaneus with soft tissue ossification of the plantar fascia. Head CT 12/25/19 22:21 IMPRESSION: Mild atrophy and small vessel ischemic change TECHNICAL DOCUMENTATION: Quality ID # 436: Final reports with documentation of one or more dose reduction techniques (e.g., Automated exposure control, adjustment of the mA and/or kV according to patient size, use of iterative reconstruction technique) copyright 2011 [employer]- All Rights Reserved Hip X-Ray 12/25/19 22:21 IMPRESSION: 1. No acute findings. KUB X-Ray 12/26/19 00:00 IMPRESSION: Marked constipation. Nasogastric tube tip in the stomach. Chest X-Ray 12/29/19 06:00 IMPRESSION: Minimal left basilar atelectasis and probable small left effusion following extubation. No consolidation. All labs, radiographs, diagnostic studies and EKGs were personally reviewed: Yes In addition, reports of radiographic and diagnostic studies were read: Yes Assessment and Plan - Diagnosis (1) Acute hypercapnic respiratory failure Is this a current diagnosis for this admission?: Yes Plan: Nearly resolved. Keep oxygen while being mobilized. (2) Left ankle pain Qualifiers: Chronicity: acute Qualified Code(s): M25.572 - Pain in left ankle and joints of left foot Is this a current diagnosis for this admission?: Yes Plan: Improved, again needs rehab as that leg does give out on her. (3) Rhabdomyolysis Qualifiers: Rhabdomyolysis type: non-traumatic Qualified Code(s): M62.82 - Rhabdomyolysis Is this a current diagnosis for this admission?: Yes Plan: Resolved (4) Atrial fibrillation Qualifiers: Atrial fibrillation type: unspecified Qualified Code(s): I48.91 - Unspecified atrial fibrillation Is this a current diagnosis for this admission?: Yes Plan: Paced rythym and now on eliquis. Plan Summary: Downgraded. When a rehab bed is available will discharge. Critical Time Critical Time (minutes): 20 Level of Care: MEDICAL Anticipated discharge: SNF Within: within 48 hours -: 1. The care of a critical patient is a dynamic process. This note is a dermatology sales representative synopsis but static in nature. The timeframe for treatments given in order is not necessarily the actual time these treatments may have been done. 2. This patient requires critical care secondary to ongoing requirements for therapy not offered or safe outside the critical care environment. Transfer to a lower level of care will result in altered life or limb morbidity and mortality. 3. Multidisciplinary rounds completed. 4. ABCDE bundle addressed.
[2019-12-29] MEDS ORDERED: POLYETHYLENE GLYCOL 3350 POWDER 17 GM/1 PACKET PO ONE (09:21)
[2019-12-29] MEDS ORDERED: POLYETHYLENE GLYCOL 3350 POWDER 17 GM/1 PACKET PO PRN (09:22)
[2019-12-29] MEDS: PHENOL/SODIUM PHENOLATE 100 SPRAY/177 ML BOTTLE PO PRN (13:24)
[2019-12-29] MEDS: ACETAMINOPHEN 325 MG TABLET PO PRN (17:22)
[2019-12-29] MEDS: ATORVASTATIN CALCIUM 10 MG TABLET PO SCH (21:21)
[2019-12-30] MEDS: INSULIN REG, HUMAN 100 UNIT/ML 3 ML VIAL (PYX) SUBCUT SCH ×4 (00:32→19:00)
[2019-12-30] MEDS: GUAIFENESIN SYRP 200 MG/10 ML UDC PO SCH ×5 (00:33→23:30)
[2019-12-30] MEDS: ALBUTEROL SULFATE 0.083% NEB 2.5 MG/3 ML AMPUL NEB SCH ×4 (02:09→20:51)
[2019-12-30] MEDS: METHYLPREDNISOLONE INJ 125 MG/2 ML SDV IV SCH (05:37)
[2019-12-30] MEDS: HYDRALAZINE HCL 25 MG TABLET PO SCH ×3 (05:37→21:50)
[2019-12-30 06:25] LABS: HEMATOCRIT 48.4 % (36.0-47.0); HEMOGLOBIN 15.4 g/dL (12.0-15.5); MEAN CORPUSCULAR HEMOGLOBIN 29.5 pg (27.0-33.4); MEAN CORPUSCULAR HGB CONC 31.9 g/dL (32.0-36.0); MEAN CORPUSCULAR VOLUME 93 fl (80-97); PLATELET COUNT 245 10^3/uL (150-450); RED BLOOD COUNT 5.23 10^6/uL (3.72-5.28); RED CELL DISTRIBUTION WIDTH 15.5 % (11.5-14.0); WHITE BLOOD COUNT 8.4 10^3/uL (4.0-10.5)
[2019-12-30 06:53] LABS: ANION GAP 5 (5-19); BLOOD UREA NITROGEN 22 mg/dL (7-20); CARBON DIOXIDE 38 mmol/L (22-30); CHLORIDE 88 mmol/L (98-107); GLUCOSE 127 mg/dL (75-110); POTASSIUM 5.3 mmol/L (3.6-5.0)
[2019-12-30] MEDS: FLUTICASONE NASAL SPRAY 50 MCG/SPRY 120 SPRAY/16 GM NASL SCH ×2 (09:18→21:49)
[2019-12-30] MEDS: PREDNISONE 20 MG TABLET PO SCH (09:19)
[2019-12-30] MEDS: DOCUSATE SODIUM 100 MG CAPSULE PO SCH ×2 (09:19→18:07)
[2019-12-30] MEDS: FAMOTIDINE 20 MG TABLET PO SCH ×2 (09:19→21:50)
[2019-12-30] MEDS: ATENOLOL 50 MG TABLET PO SCH ×2 (09:19→21:50)
[2019-12-30] MEDS: APIXABAN 5 MG TABLET PO SCH ×2 (09:19→18:07)
[2019-12-30] MEDS: METFORMIN HCL 500 MG TABLET PO SCH ×2 (09:19→15:08)
[2019-12-30] MEDS: LORATADINE 10 MG TABLET PO SCH (09:20)
[2019-12-30 10:48] LABS: ARTERIAL BLOOD BASE EXCESS 5.3 mmol/L; ARTERIAL BLOOD H2CO3 2.32 mmol/L (1.05-1.35); ARTERIAL BLOOD HCO3 35.3 mmol/L (20-24); ARTERIAL BLOOD O2 SATURATION 93.5 % (94-98); ARTERIAL BLOOD PH 7.28 (7.35-7.45); ARTERIAL BLOOD PO2 78.7 mmHg (80-100); ARTERIAL BLOOD TOTAL CO2 37.7 mmol/L (21-25)
[2019-12-30 10:49] LABS: ARTERIAL BLOOD FIO2 2L
[2019-12-30 10:51] LABS: ARTERIAL BLOOD PCO2 77.2 mmHg (35-45)
[2019-12-30] MEDS ORDERED: SODIUM POLYSTYRENE SULFONATE 15 GM/60 ML PO ONE (11:30)
--- NOTE | 2019-12-30 14:54 | PDOC PROGRESS REPORT ---
Subjective Progress Note for:: 12/30/19 Subjective:: The patient was seen on morning rounds with multiple family members present. She was fatigued, alert and oriented to self, place, but otherwise forgetful, repetitive, and confused. Patient's family members report that this is different than her baseline mentation. Stat ABG revealed worsening hypercapnia. Patient was placed on BiPAP with near immediate improvement in her alertness and mentation. She denies fever, chest pain, palpitations, cough, abdominal pain. Reviewed the patient's admission diagnoses, clinical course, and explained how her hypercapnia has developed as a result of COPD, DEMETRIO, and likely morbid obesity hypoventilation syndrome. All questions answered. Reason For Visit: RHABDOMYOLYSIS,HYPERTENSION,HYPONATREMIA,ELEVATED Physical Exam Vital Signs: Temp Pulse Resp BP Pulse Ox 97.3 F 64 16 135/76 H 95 12/30/19 10:40 12/30/19 14:06 12/30/19 14:06 12/30/19 10:40 12/30/19 14:06 Intake & Output 12/29/19 12/30/19 12/31/19 06:59 06:59 06:59 Intake Total 150 860 120 Output Total 750 0 Balance -600 860 120 Weight 131.9 kg 115.1 kg General appearance: PRESENT: no acute distress, cooperative, morbidly obese, well-developed, well-nourished Head exam: PRESENT: atraumatic, normocephalic Eye exam: PRESENT: conjunctiva pink, EOMI, PERRLA. ABSENT: scleral icterus Mouth exam: PRESENT: moist, tongue midline Teeth exam: PRESENT: edentulous - Top dentures Respiratory exam: PRESENT: clear to auscultation cheng, decreased breath sounds - Throughout secondary to positioning, poor inspiratory effort, and body habitus, symmetrical, unlabored, other. ABSENT: rales, rhonchi, wheezes Cardiovascular exam: PRESENT: RRR, +S1, +S2. ABSENT: diastolic murmur, rubs, systolic murmur Pulses: PRESENT: normal dorsalis pedis pul Vascular exam: PRESENT: normal capillary refill Extremities exam: PRESENT: full ROM. ABSENT: calf tenderness, clubbing, pedal edema Neurological exam: PRESENT: alert, awake, oriented to person, oriented to place, CN II-XII grossly intact. ABSENT: motor sensory deficit Psychiatric exam: PRESENT: appropriate affect, normal mood. ABSENT: homicidal ideation, suicidal ideation Skin exam: PRESENT: dry, intact, warm. ABSENT: cyanosis, rash Results Laboratory Results: 12/30/19 05:57 12/30/19 05:57 12/30/19 12/30/19 12/30/19 05:57 05:57 10:30 WBC 8.4 RBC 5.23 Hgb 15.4 Hct 48.4 H MCV 93 MCH 29.5 MCHC 31.9 L RDW 15.5 H Plt Count 245 Carbonic Acid 2.32 H HCO3/H2CO3 Ratio 15:1 ABG pH 7.28 L ABG pCO2 77.2 H* ABG pO2 78.7 L ABG HCO3 35.3 H ABG O2 Saturation 93.5 L ABG Base Excess 5.3 FiO2 2L Sodium 131.3 L Potassium 5.3 H Chloride 88 L Carbon Dioxide 38 H Anion Gap 5 BUN 22 H Creatinine 0.52 Est GFR ( Amer) > 60 Glucose 127 H Calcium 9.0 12/30/19 10:30 WBC RBC Hgb Hct MCV MCH MCHC RDW Plt Count Carbonic Acid Cancelled HCO3/H2CO3 Ratio Cancelled ABG pH Cancelled ABG pCO2 Cancelled ABG pO2 Cancelled ABG HCO3 Cancelled ABG O2 Saturation Cancelled ABG Base Excess Cancelled FiO2 Cancelled Sodium Potassium Chloride Carbon Dioxide Anion Gap BUN Creatinine Est GFR ( Amer) Glucose Calcium 12/25/19 12/25/19 12/25/19 21:15 21:15 21:58 Creatine Kinase Cancelled CK-MB (CK-2) Cancelled 16.50 H Troponin I Cancelled 0.017 NT-Pro-B Natriuret Pep 12/25/19 12/26/19 12/26/19 21:58 05:35 06:52 Creatine Kinase 4483 H Cancelled Cancelled CK-MB (CK-2) Troponin I NT-Pro-B Natriuret Pep 12/26/19 12/26/19 12/27/19 07:50 15:10 04:05 Creatine Kinase 2856 H 1150 H CK-MB (CK-2) Troponin I NT-Pro-B Natriuret Pep 257 12/28/19 03:36 Creatine Kinase 583 H CK-MB (CK-2) Troponin I NT-Pro-B Natriuret Pep Impressions: Foot X-Ray 12/25/19 00:00 IMPRESSION: 1. 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 2. Osteophyte formation of the calcaneus with soft tissue ossification of the plantar fascia. Head CT 12/25/19 22:21 IMPRESSION: Mild atrophy and small vessel ischemic change TECHNICAL DOCUMENTATION: Quality ID # 436: Final reports with documentation of one or more dose reduction techniques (e.g., Automated exposure control, adjustment of the mA and/or kV according to patient size, use of iterative reconstruction technique) copyright 2011 [employer]- All Rights Reserved Hip X-Ray 12/25/19 22:21 IMPRESSION: 1. No acute findings. KUB X-Ray 12/26/19 00:00 IMPRESSION: Marked constipation. Nasogastric tube tip in the stomach. Chest X-Ray 12/29/19 06:00 IMPRESSION: Minimal left basilar atelectasis and probable small left effusion following extubation. No consolidation. Assessment and Plan - Diagnosis (1) Acute and chronic respiratory failure with hypercapnia Is this a current diagnosis for this admission?: Yes Plan: Multifactorial secondary to chronic COPD, DEMETRIO, and obesity hypoventilation syndrome. ABG today reveals worsening hypercapnia while on supplemental oxygen by nasal cannula alone. She is placed on BiPAP; recommend 2 hours on/2 hours off today with continuous use overnight. Repeat ABG in the morning. Anticipate the patient will require supplemental oxygen and BiPAP for nightly use at discharge. Discharge planning is notified. (2) DEMETRIO (obstructive sleep apnea) Is this a current diagnosis for this admission?: Yes Plan: BiPAP (3) Obesity hypoventilation syndrome Is this a current diagnosis for this admission?: Yes Plan: Discussed in detail with family members. Advised dietary discretion. BiPAP nightly and PRN. Outpatient pulmonology follow-up. (4) COPD (chronic obstructive pulmonary disease) Qualifiers: Emphysema type: unspecified Is this a current diagnosis for this admission?: Yes Plan: Per family members the patient has been diagnosed with COPD previously; not on maintenance inhalers. She is a former, long-term, smoker. Will provide supplemental oxygen and BiPAP as needed to maintain saturations greater than 89%. Continue on scheduled and as needed nebulizer treatments. P.o. prednisone Robitussin every 6 hours Pulmonary toilet is encouraged with incentive spirometer, flutter valve, and early ambulation. (5) Hyperlipidemia Qualifiers: Hyperlipidemia type: unspecified Qualified Code(s): E78.5 - Hyperlipidemia, unspecified Is this a current diagnosis for this admission?: Yes Plan: Cardiac diet. Continue statin therapy. (6) Left ankle pain Qualifiers: Chronicity: acute Qualified Code(s): M25.572 - Pain in left ankle and joints of left foot Is this a current diagnosis for this admission?: Yes Plan: Improved, secondary to fall with injury. Imaging was negative for fracture. Analgesics, ice, elevation as needed for discomfort. (7) Unable to ambulate Is this a current diagnosis for this admission?: Yes Plan: Secondary to ankle pain and morbid obesity. Physical therapy has been ordered. Discharge planning consulted; plans to discharge to rehab shortly. (8) Hyponatremia Is this a current diagnosis for this admission?: Yes Plan: Overall improved; now 131.3. Review of historic labs suggest that she may have chronic, mild, hyponatremia. Not clinically significant at this time; will continue to monitor periodically (9) Rhabdomyolysis Qualifiers: Rhabdomyolysis type: non-traumatic Qualified Code(s): M62.82 - Rhabdomyolysis Is this a current diagnosis for this admission?: Yes Plan: Resolved - Time Time Spent with patient: 35 or more minutes Medications reviewed and adjusted accordingly: Yes Anticipated discharge: SNF Within: within 48 hours
[2019-12-30] MEDS: ATORVASTATIN CALCIUM 10 MG TABLET PO SCH (21:50)
[2019-12-31] MEDS: INSULIN REG, HUMAN 100 UNIT/ML 3 ML VIAL (PYX) SUBCUT SCH ×4 (00:23→20:54)
[2019-12-31] MEDS: ALBUTEROL SULFATE 0.083% NEB 2.5 MG/3 ML AMPUL NEB SCH ×4 (02:34→21:19)
[2019-12-31] MEDS: GUAIFENESIN SYRP 200 MG/10 ML UDC PO SCH ×3 (05:09→17:41)
[2019-12-31] MEDS: HYDRALAZINE HCL 25 MG TABLET PO SCH ×3 (05:09→21:54)
[2019-12-31 05:23] LABS: ARTERIAL BLOOD BASE EXCESS 13.2 mmol/L; ARTERIAL BLOOD O2 SATURATION 93.7 % (94-98); ARTERIAL BLOOD PH 7.32 (7.35-7.45); ARTERIAL BLOOD PO2 77.3 mmHg (80-100); ARTERIAL BLOOD TOTAL CO2 46.6 mmol/L (21-25)
[2019-12-31 05:28] LABS: ARTERIAL BLOOD FIO2 28%; ARTERIAL BLOOD PCO2 86.5 mmHg (35-45)
[2019-12-31 06:12] LABS: HEMATOCRIT 47.4 % (36.0-47.0); HEMOGLOBIN 15.3 g/dL (12.0-15.5); MEAN CORPUSCULAR HEMOGLOBIN 29.9 pg (27.0-33.4); MEAN CORPUSCULAR HGB CONC 32.2 g/dL (32.0-36.0); MEAN CORPUSCULAR VOLUME 93 fl (80-97); PLATELET COUNT 271 10^3/uL (150-450); RED CELL DISTRIBUTION WIDTH 15.4 % (11.5-14.0); WHITE BLOOD COUNT 8.5 10^3/uL (4.0-10.5)
[2019-12-31 06:34] LABS: BLOOD UREA NITROGEN 24 mg/dL (7-20); CALCIUM 8.8 mg/dL (8.4-10.2); CHLORIDE 87 mmol/L (98-107); GLUCOSE 85 mg/dL (75-110); POTASSIUM 4.5 mmol/L (3.6-5.0)
[2019-12-31 06:41] LABS: ANION GAP 6 (5-19)
[2019-12-31 06:45] LABS: CARBON DIOXIDE 39 mmol/L (22-30)
[2019-12-31] MEDS: METFORMIN HCL 500 MG TABLET PO SCH ×2 (08:07→15:10)
[2019-12-31] MEDS: ATENOLOL 50 MG TABLET PO SCH ×2 (10:22→21:54)
[2019-12-31] MEDS: FAMOTIDINE 20 MG TABLET PO SCH ×2 (10:22→21:54)
[2019-12-31] MEDS: LORATADINE 10 MG TABLET PO SCH (10:22)
[2019-12-31] MEDS: FLUTICASONE NASAL SPRAY 50 MCG/SPRY 120 SPRAY/16 GM NASL SCH ×2 (10:24→21:57)
[2019-12-31] MEDS: APIXABAN 5 MG TABLET PO SCH ×2 (10:24→17:41)
[2019-12-31] MEDS: DOCUSATE SODIUM 100 MG CAPSULE PO SCH ×2 (10:24→17:39)
[2019-12-31] MEDS: PREDNISONE 20 MG TABLET PO SCH (10:24)
--- NOTE | 2019-12-31 18:29 | PDOC PROGRESS REPORT ---
Subjective Progress Note for:: 12/31/19 Subjective:: The patient was seen on morning rounds; no family members present. She was fatigued, alert and oriented to self, place, and situation. She reports continued fatigue and forgetfulness, but otherwise denies symptoms of fever, chest pain, palpitations, cough, abdominal pain. She has no questions or concerns at this time. No concerns per nursing. Reason For Visit: RHABDOMYOLYSIS,HYPERTENSION,HYPONATREMIA,ELEVATED Physical Exam Vital Signs: Temp Pulse Resp BP Pulse Ox 98.2 F 64 17 113/62 92 12/31/19 15:47 12/31/19 15:47 12/31/19 17:27 12/31/19 15:47 12/31/19 17:27 Intake & Output 12/30/19 12/31/19 01/01/20 06:59 06:59 06:59 Intake Total 860 960 120 Output Total 0 Balance 860 960 120 Weight 115.1 kg 116.1 kg 116.1 kg General appearance: PRESENT: no acute distress, cooperative, morbidly obese, well-developed, well-nourished Head exam: PRESENT: atraumatic, normocephalic Eye exam: PRESENT: conjunctiva pink, EOMI, PERRLA. ABSENT: scleral icterus Mouth exam: PRESENT: moist, tongue midline Respiratory exam: PRESENT: decreased breath sounds - Bibasilar secondary to body habitus, positioning, symmetrical, unlabored, other - No on a VATS. ABSENT: rales, rhonchi, wheezes Cardiovascular exam: PRESENT: RRR, +S1, +S2. ABSENT: diastolic murmur, rubs, systolic murmur Pulses: PRESENT: normal dorsalis pedis pul Vascular exam: PRESENT: normal capillary refill Extremities exam: PRESENT: full ROM. ABSENT: calf tenderness, clubbing, pedal edema Neurological exam: PRESENT: alert, awake, oriented to person, oriented to place, oriented to situation, CN II-XII grossly intact, other - Fatigued. ABSENT: motor sensory deficit Psychiatric exam: PRESENT: appropriate affect, normal mood. ABSENT: homicidal ideation, suicidal ideation Skin exam: PRESENT: dry, intact, warm. ABSENT: cyanosis, rash Results Laboratory Results: 12/31/19 05:22 12/31/19 05:22 12/31/19 12/31/19 12/31/19 05:14 05:22 05:22 WBC 8.5 RBC 5.10 Hgb 15.3 Hct 47.4 H MCV 93 MCH 29.9 MCHC 32.2 RDW 15.4 H Plt Count 271 Carbonic Acid 2.60 H HCO3/H2CO3 Ratio 16:1 ABG pH 7.32 L ABG pCO2 86.5 H* ABG pO2 77.3 L ABG HCO3 44.0 H ABG O2 Saturation 93.7 L ABG Base Excess 13.2 FiO2 28% Sodium 132.3 L Potassium 4.5 Chloride 87 L Carbon Dioxide 39 H Anion Gap 6 BUN 24 H Creatinine 0.58 Est GFR ( Amer) > 60 Glucose 85 Calcium 8.8 12/25/19 12/25/19 12/25/19 21:15 21:15 21:58 Creatine Kinase Cancelled CK-MB (CK-2) Cancelled 16.50 H Troponin I Cancelled 0.017 NT-Pro-B Natriuret Pep 12/25/19 12/26/19 12/26/19 21:58 05:35 06:52 Creatine Kinase 4483 H Cancelled Cancelled CK-MB (CK-2) Troponin I NT-Pro-B Natriuret Pep 12/26/19 12/26/19 12/27/19 07:50 15:10 04:05 Creatine Kinase 2856 H 1150 H CK-MB (CK-2) Troponin I NT-Pro-B Natriuret Pep 257 12/28/19 03:36 Creatine Kinase 583 H CK-MB (CK-2) Troponin I NT-Pro-B Natriuret Pep Impressions: Foot X-Ray 12/25/19 00:00 IMPRESSION: 1. 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 2. Osteophyte formation of the calcaneus with soft tissue ossification of the plantar fascia. Head CT 12/25/19 22:21 IMPRESSION: Mild atrophy and small vessel ischemic change TECHNICAL DOCUMENTATION: Quality ID # 436: Final reports with documentation of one or more dose reduction techniques (e.g., Automated exposure control, adjustment of the mA and/or kV according to patient size, use of iterative reconstruction technique) copyright 2011 [employer]- All Rights Reserved Hip X-Ray 12/25/19 22:21 IMPRESSION: 1. No acute findings. KUB X-Ray 12/26/19 00:00 IMPRESSION: Marked constipation. Nasogastric tube tip in the stomach. Chest X-Ray 12/29/19 06:00 IMPRESSION: Minimal left basilar atelectasis and probable small left effusion following extubation. No consolidation. Assessment and Plan - Diagnosis (1) Acute and chronic respiratory failure with hypercapnia Is this a current diagnosis for this admission?: Yes Plan: Multifactorial secondary to chronic COPD, DEMETRIO, and obesity hypoventilation syndrome. ABG today revealed worsening hypercapnia while on supplemental oxygen by nasal cannula alone. Follow-up ABG after 24 hours of new consistent BiPAP use showed worsening hyper capnia. Discussed the patient's HPI, assessment, and ABG results with Dr. Shea by phone. He recommends trilogy. Patient is placed on AVAPs while in the hospital; have discussed with discharge planning need to arrange for trilogy machine for discharge. We will obtain follow-up ABG in the morning to further titrate AVAP settings. Discharge planning is notified. (2) DEMETRIO (obstructive sleep apnea) Is this a current diagnosis for this admission?: Yes Plan: AVAPS (3) Obesity hypoventilation syndrome Is this a current diagnosis for this admission?: Yes Plan: Previously discussed in detail with family members. Advised dietary discretion. Discussed with Dr. Shea. Now on a AVAPs Will need trilogy for discharge. Outpatient pulmonology follow-up. (4) COPD (chronic obstructive pulmonary disease) Qualifiers: Emphysema type: unspecified Is this a current diagnosis for this admission?: Yes Plan: Per family members the patient has been diagnosed with COPD previously; not on maintenance inhalers. She is a former, long-term, smoker. Will provide supplemental oxygen and AVAP as needed to maintain saturations greater than 89%. Continue on scheduled and as needed nebulizer treatments. IV Solu-medrol Robitussin every 6 hours Pulmonary toilet is encouraged with incentive spirometer, flutter valve, and early ambulation. (5) Hyperlipidemia Qualifiers: Hyperlipidemia type: unspecified Qualified Code(s): E78.5 - Hyperlipidemia, unspecified Is this a current diagnosis for this admission?: Yes Plan: Cardiac diet. Continue statin therapy. (6) Left ankle pain Qualifiers: Chronicity: acute Qualified Code(s): M25.572 - Pain in left ankle and joints of left foot Is this a current diagnosis for this admission?: Yes Plan: Improved, secondary to fall with injury. Imaging was negative for fracture. Analgesics, ice, elevation as needed for discomfort. Velcro stirrup splint for ambulation (7) Unable to ambulate Is this a current diagnosis for this admission?: Yes Plan: Secondary to ankle pain and morbid obesity. Physical therapy has been ordered. Discharge planning consulted; plans to discharge to rehab shortly. (8) Hyponatremia Is this a current diagnosis for this admission?: Yes Plan: Overall improved; now 132.3. Review of historic labs suggest that she may have chronic, mild, hyponatremia. Not clinically significant at this time; will continue to monitor periodically (9) Rhabdomyolysis Qualifiers: Rhabdomyolysis type: non-traumatic Qualified Code(s): M62.82 - Rhabdomyolysis Is this a current diagnosis for this admission?: Yes Plan: Resolved - Time Time Spent with patient: 35 or more minutes Medications reviewed and adjusted accordingly: Yes Anticipated discharge: Other - LTAC
[2019-12-31] MEDS: METHYLPREDNISOLONE INJ 40 MG/1 ML SDV IV SCH (21:54)
[2019-12-31] MEDS: ATORVASTATIN CALCIUM 10 MG TABLET PO SCH (21:54)
[2020-01-01] MEDS: GUAIFENESIN SYRP 200 MG/10 ML UDC PO SCH ×4 (00:13→18:52)
[2020-01-01] MEDS: INSULIN REG, HUMAN 100 UNIT/ML 3 ML VIAL (PYX) SUBCUT SCH ×4 (00:44→18:51)
[2020-01-01] MEDS: ALBUTEROL SULFATE 0.083% NEB 2.5 MG/3 ML AMPUL NEB SCH ×4 (02:17→20:19)
[2020-01-01 05:41] LABS: ARTERIAL BLOOD BASE EXCESS 14.5 mmol/L; ARTERIAL BLOOD FIO2 30%; ARTERIAL BLOOD H2CO3 1.95 mmol/L (1.05-1.35); ARTERIAL BLOOD HCO3 42.5 mmol/L (20-24); ARTERIAL BLOOD O2 SATURATION 95.8 % (94-98); ARTERIAL BLOOD PCO2 64.9 mmHg (35-45); ARTERIAL BLOOD PH 7.43 (7.35-7.45); ARTERIAL BLOOD PO2 80.1 mmHg (80-100); ARTERIAL BLOOD TOTAL CO2 44.5 mmol/L (21-25)
[2020-01-01] MEDS: HYDRALAZINE HCL 25 MG TABLET PO SCH ×3 (05:42→21:05)
[2020-01-01] MEDS: METHYLPREDNISOLONE INJ 40 MG/1 ML SDV IV SCH ×3 (05:42→21:04)
[2020-01-01 06:01] LABS: HEMOGLOBIN 15.7 g/dL (12.0-15.5); MEAN CORPUSCULAR HEMOGLOBIN 29.9 pg (27.0-33.4); MEAN CORPUSCULAR HGB CONC 32.7 g/dL (32.0-36.0); MEAN CORPUSCULAR VOLUME 91 fl (80-97); PLATELET COUNT 258 10^3/uL (150-450); RED BLOOD COUNT 5.25 10^6/uL (3.72-5.28); RED CELL DISTRIBUTION WIDTH 15.2 % (11.5-14.0); WHITE BLOOD COUNT 9.2 10^3/uL (4.0-10.5)
[2020-01-01 06:33] LABS: BLOOD UREA NITROGEN 23 mg/dL (7-20); CALCIUM 8.9 mg/dL (8.4-10.2); CHLORIDE 87 mmol/L (98-107); GLUCOSE 91 mg/dL (75-110)
[2020-01-01 06:40] LABS: ANION GAP 5 (5-19); CARBON DIOXIDE 39 mmol/L (22-30)
[2020-01-01 09:16] LABS: APPEARANCE,URINE CLEAR; BILIRUBIN,URINE NEGATIVE (NEGATIVE); COLOR,URINE YELLOW; GLUCOSE, URINE NEGATIVE (NEGATIVE); KETONES,URINE NEGATIVE (NEGATIVE); PROTEIN,URINE NEGATIVE (NEGATIVE); URINE SPECIFIC GRAVITY 1.008
[2020-01-01] MEDS: METFORMIN HCL 500 MG TABLET PO SCH ×2 (10:51→15:21)
[2020-01-01] MEDS: DOCUSATE SODIUM 100 MG CAPSULE PO SCH ×2 (10:52→18:52)
[2020-01-01] MEDS: LORATADINE 10 MG TABLET PO SCH (10:52)
[2020-01-01] MEDS: ATENOLOL 50 MG TABLET PO SCH ×2 (10:53→21:04)
[2020-01-01] MEDS: FLUTICASONE NASAL SPRAY 50 MCG/SPRY 120 SPRAY/16 GM NASL SCH ×2 (10:53→22:32)
[2020-01-01] MEDS: FAMOTIDINE 20 MG TABLET PO SCH ×2 (10:53→21:04)
--- NOTE | 2020-01-01 13:40 | PDOC PROGRESS REPORT ---
Subjective Progress Note for:: 01/01/20 Subjective:: The patient was seen on morning rounds with her [id number] present. She was found sitting up to the recliner, comfortably, on supplemental cannula at 2 lpm. She is A&O x4, conversational, engaging, and returned to her baseline mental status per family. Patient reports that she is feeling well. She is pleased that she was able to ambulate independently with front wheel walker to the recliner (approximately 3-4 steps). They have many questions with regard to trilogy and rehab options. Patient denies fever, chills, chest pain, dyspnea, cough, abdominal pain, nausea vomiting diarrhea. They have no other questions or concerns at this time. Reason For Visit: RHABDOMYOLYSIS,HYPERTENSION,HYPONATREMIA,ELEVATED Physical Exam Vital Signs: Temp Pulse Resp BP Pulse Ox 97.9 F 60 22 H 138/78 H 97 01/01/20 12:08 01/01/20 12:08 01/01/20 12:08 01/01/20 12:08 01/01/20 12:08 Intake & Output 12/31/19 01/01/20 01/02/20 06:59 06:59 06:59 Intake Total 960 480 Balance 960 480 Weight 116.1 kg 112.5 kg General appearance: PRESENT: no acute distress, cooperative, well-developed, well-nourished Head exam: PRESENT: atraumatic, normocephalic Eye exam: PRESENT: conjunctiva pink, EOMI, PERRLA. ABSENT: scleral icterus Ear exam: PRESENT: normal external ear exam Mouth exam: PRESENT: moist, tongue midline Neck exam: ABSENT: carotid bruit, JVD, lymphadenopathy, thyromegaly Respiratory exam: PRESENT: clear to auscultation cheng, symmetrical, unlabored, other - Supplemental oxygen via nasal cannula. ABSENT: rales, rhonchi, wheezes Cardiovascular exam: PRESENT: RRR. ABSENT: diastolic murmur, rubs, systolic murmur Pulses: PRESENT: normal dorsalis pedis pul Vascular exam: PRESENT: normal capillary refill GI/Abdominal exam: PRESENT: normal bowel sounds, soft. ABSENT: distended, guarding, mass, organolmegaly, rebound, tenderness Rectal exam: PRESENT: deferred Extremities exam: PRESENT: full ROM, tenderness - Left ankle with slight swelling and profound ecchymosis. ABSENT: calf tenderness, clubbing, pedal edema Neurological exam: PRESENT: alert, awake, oriented to person, oriented to place, oriented to time, oriented to situation, CN II-XII grossly intact. ABSENT: motor sensory deficit Psychiatric exam: PRESENT: appropriate affect, normal mood. ABSENT: homicidal ideation, suicidal ideation Skin exam: PRESENT: dry, intact, warm. ABSENT: cyanosis, rash Results Laboratory Results: 01/01/20 05:33 01/01/20 05:33 01/01/20 01/01/20 01/01/20 05:30 05:33 05:33 WBC 9.2 RBC 5.25 Hgb 15.7 H Hct 48.0 H MCV 91 MCH 29.9 MCHC 32.7 RDW 15.2 H Plt Count 258 Carbonic Acid 1.95 H HCO3/H2CO3 Ratio 21:1 ABG pH 7.43 ABG pCO2 64.9 H ABG pO2 80.1 ABG HCO3 42.5 H ABG O2 Saturation 95.8 ABG Base Excess 14.5 FiO2 30% Sodium 131.2 L Potassium 5.0 Chloride 87 L Carbon Dioxide 39 H Anion Gap 5 BUN 23 H Creatinine 0.58 Est GFR ( Amer) > 60 Glucose 91 Calcium 8.9 Urine Color Urine Appearance Urine pH Ur Specific [place] Urine Protein Urine Glucose (UA) Urine Ketones Urine Blood 01/01/20 08:16 WBC RBC Hgb Hct MCV MCH MCHC RDW Plt Count Carbonic Acid HCO3/H2CO3 Ratio ABG pH ABG pCO2 ABG pO2 ABG HCO3 ABG O2 Saturation ABG Base Excess FiO2 Sodium Potassium Chloride Carbon Dioxide Anion Gap BUN Creatinine Est GFR ( Amer) Glucose Calcium Urine Color YELLOW Urine Appearance CLEAR Urine pH 6.0 Ur Specific [place] 1.008 Urine Protein NEGATIVE Urine Glucose (UA) NEGATIVE Urine Ketones NEGATIVE Urine Blood SMALL H 12/25/19 12/25/19 12/25/19 21:15 21:15 21:58 Creatine Kinase Cancelled CK-MB (CK-2) Cancelled 16.50 H Troponin I Cancelled 0.017 NT-Pro-B Natriuret Pep 12/25/19 12/26/19 12/26/19 21:58 05:35 06:52 Creatine Kinase 4483 H Cancelled Cancelled CK-MB (CK-2) Troponin I NT-Pro-B Natriuret Pep 12/26/19 12/26/19 12/27/19 07:50 15:10 04:05 Creatine Kinase 2856 H 1150 H CK-MB (CK-2) Troponin I NT-Pro-B Natriuret Pep 257 12/28/19 03:36 Creatine Kinase 583 H CK-MB (CK-2) Troponin I NT-Pro-B Natriuret Pep Impressions: Foot X-Ray 12/25/19 00:00 IMPRESSION: 1. 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 2. Osteophyte formation of the calcaneus with soft tissue ossification of the plantar fascia. Head CT 12/25/19 22:21 IMPRESSION: Mild atrophy and small vessel ischemic change TECHNICAL DOCUMENTATION: Quality ID # 436: Final reports with documentation of one or more dose reduction techniques (e.g., Automated exposure control, adjustment of the mA and/or kV according to patient size, use of iterative reconstruction technique) copyright 2011 [employer]- All Rights Reserved Hip X-Ray 12/25/19 22:21 IMPRESSION: 1. No acute findings. KUB X-Ray 12/26/19 00:00 IMPRESSION: Marked constipation. Nasogastric tube tip in the stomach. Chest X-Ray 12/29/19 06:00 IMPRESSION: Minimal left basilar atelectasis and probable small left effusion following extubation. No consolidation. Assessment and Plan - Diagnosis (1) Acute and chronic respiratory failure with hypercapnia Is this a current diagnosis for this admission?: Yes Plan: Significantly improved. Multifactorial secondary to chronic COPD, DEMETRIO, and obesity hypoventilation syndrome. ABG today revealed worsening hypercapnia while on supplemental oxygen by nasal cannula alone. Follow-up ABG after 24 hours of new consistent BiPAP use showed worsening hypercapnia. ABG following a AVAPs is significantly improved. Patient is now alert and oriented to her baseline. Discussed the patient's HPI, assessment, and ABG results with Dr. Shea by phone. He recommends trilogy. Patient is placed on AVAPs while in the hospital; have discussed with discharge planning need to arrange for trilogy machine for discharge. Discharge planning is notified. (2) DEMETRIO (obstructive sleep apnea) Is this a current diagnosis for this admission?: Yes Plan: AVAPS Trilegy at discharge. (3) Obesity hypoventilation syndrome Is this a current diagnosis for this admission?: Yes Plan: Previously discussed in detail with family members. Advised dietary discretion. Discussed with Dr. Shea. Now on a AVAPs Due to the patient's diagnosis of restrictive lung disease with hypercapnic respiratory failure secondary to her obesity hypoventilation, patient has a rapidly changing respiratory status which requires an IV with volume guaranteed ventilation. Due to the rapidly changing status of their lung condition, the patient requires multiple ventilation settings such as a mouthpiece ventilation to complete ADLs, a better he is also required for 24-hour access to an IV in multiple environments. This level of support cannot be achieved with bilevel therapy device. Without therapy, the patient will experience a decline in her health status. Trilogy at discharge. (4) COPD (chronic obstructive pulmonary disease) Qualifiers: Emphysema type: unspecified Is this a current diagnosis for this admission?: Yes Plan: Per family members the patient has been diagnosed with COPD previously; not on maintenance inhalers. She is a former, long-term, smoker. Will provide supplemental oxygen and AVAP as needed to maintain saturations greater than 89%. Continue on scheduled and as needed nebulizer treatments. IV Solu-medrol; begin weaning. Robitussin every 6 hours Pulmonary toilet is encouraged with incentive spirometer, flutter valve, and early ambulation. (5) Hyperlipidemia Qualifiers: Hyperlipidemia type: unspecified Qualified Code(s): E78.5 - Hyperlipidemia, unspecified Is this a current diagnosis for this admission?: Yes Plan: Cardiac diet. Home dose atorvastatin. (6) Left ankle pain Qualifiers: Chronicity: acute Qualified Code(s): M25.572 - Pain in left ankle and joints of left foot Is this a current diagnosis for this admission?: Yes Plan: Improved, secondary to fall with injury. Imaging was negative for fracture. Analgesics, ice, elevation as needed for discomfort. Velcro stirrup splint for ambulation (7) Unable to ambulate Is this a current diagnosis for this admission?: Yes Plan: Secondary to ankle pain and morbid obesity. Physical therapy has been ordered. Discharge planning consulted; plans to discharge to rehab shortly. (8) Hyponatremia Is this a current diagnosis for this admission?: Yes Plan: Overall stable. Review of historic labs suggest that she may have chronic, mild, hyponatremia. Today the patient confirms that she has a longstanding history of chronic hyponatremia. Not clinically significant at this time; will continue to monitor periodically (9) Rhabdomyolysis Qualifiers: Rhabdomyolysis type: non-traumatic Qualified Code(s): M62.82 - Rhabdomyolysis Is this a current diagnosis for this admission?: Yes Plan: Resolved - Time Time Spent with patient: 35 or more minutes Medications reviewed and adjusted accordingly: Yes Anticipated discharge: Home with Homehealth Within: Other - once trilogy device is available.
[2020-01-01] MEDS: ATORVASTATIN CALCIUM 10 MG TABLET PO SCH (21:05)
[2020-01-02] MEDS: INSULIN REG, HUMAN 100 UNIT/ML 3 ML VIAL (PYX) SUBCUT SCH ×4 (00:22→17:30)
[2020-01-02] MEDS: GUAIFENESIN SYRP 200 MG/10 ML UDC PO SCH ×4 (00:22→17:16)
[2020-01-02] MEDS: ALBUTEROL SULFATE 0.083% NEB 2.5 MG/3 ML AMPUL NEB SCH ×3 (02:17→14:02)
[2020-01-02 05:16] LABS: BLOOD UREA NITROGEN 19 mg/dL (7-20); CALCIUM 8.9 mg/dL (8.4-10.2); CHLORIDE 86 mmol/L (98-107); GLUCOSE 108 mg/dL (75-110); POTASSIUM 4.9 mmol/L (3.6-5.0)
[2020-01-02 05:25] LABS: CARBON DIOXIDE 41 mmol/L (22-30)
[2020-01-02 05:54] LABS: ANION GAP 4 (5-19)
[2020-01-02] MEDS: METHYLPREDNISOLONE INJ 40 MG/1 ML SDV IV SCH ×3 (06:06→21:42)
[2020-01-02] MEDS: HYDRALAZINE HCL 25 MG TABLET PO SCH ×3 (06:06→21:43)
[2020-01-02] MEDS: FAMOTIDINE 20 MG TABLET PO SCH ×2 (09:47→21:43)
[2020-01-02] MEDS: DOCUSATE SODIUM 100 MG CAPSULE PO SCH ×2 (09:47→17:17)
[2020-01-02] MEDS: LORATADINE 10 MG TABLET PO SCH (09:47)
[2020-01-02] MEDS: ATENOLOL 50 MG TABLET PO SCH ×2 (09:48→21:43)
[2020-01-02] MEDS: METFORMIN HCL 500 MG TABLET PO SCH ×2 (09:48→17:17)
[2020-01-02] MEDS: FLUTICASONE NASAL SPRAY 50 MCG/SPRY 120 SPRAY/16 GM NASL SCH ×2 (09:49→21:44)
--- NOTE | 2020-01-02 16:20 | PDOC PROGRESS REPORT ---
Subjective Progress Note for:: 01/02/20 Subjective:: The patient was seen on morning rounds. She was found sitting up in bed, comfortably, on supplemental cannula at 2 lpm. She is not home O2 dependent. She is A&O x4, conversational, engaging, and returned to her baseline mental status . Patient reports that she is feeling well. She reports slight fatigue today, does admit that she did not use NIV yesterday while napping during the day and reassures me that she will so today. Otherwise, she remains hesitant ab out out of bed activity due to continued left ankle discomfort and sensation of instability. It is unclear why, but patient has not yet received Velcro stirrup splint. Otherwise, she reports that she is feeling well and is nervous about discharge in the next 1 to 2 days. (Unclear yet whether the patient will go to LTAC on trilogy for rehab versus home with home health services). Patient denies fever, chills, chest pain, dyspnea, cough, abdominal pain, nausea vomiting diarrhea. She has no other questions or concerns at this time. No concerns per nursing. Reason For Visit: RHABDOMYOLYSIS,HYPERTENSION,HYPONATREMIA,ELEVATED Physical Exam Vital Signs: Temp Pulse Resp BP Pulse Ox 97.5 F 56 L 18 134/78 H 97 01/02/20 11:07 01/02/20 11:07 01/02/20 11:07 01/02/20 11:07 01/02/20 11:07 Intake & Output 01/01/20 01/02/20 01/03/20 06:59 06:59 06:59 Intake Total 480 850 240 Output Total 1100 500 Balance 480 -250 -260 Weight 112.5 kg 111.5 kg General appearance: PRESENT: no acute distress, cooperative, morbidly obese, well-developed, well-nourished Head exam: PRESENT: atraumatic, normocephalic Eye exam: PRESENT: conjunctiva pink, EOMI, PERRLA. ABSENT: scleral icterus Ear exam: PRESENT: normal external ear exam Mouth exam: PRESENT: moist, tongue midline Respiratory exam: PRESENT: clear to auscultation cheng, decreased breath sounds - Bibasilar, symmetrical, unlabored, other - Supplemental oxygen via nasal cannula; AVAPs at night. ABSENT: rales, rhonchi, wheezes Cardiovascular exam: PRESENT: RRR. ABSENT: diastolic murmur, rubs, systolic murmur Pulses: PRESENT: normal dorsalis pedis pul Vascular exam: PRESENT: normal capillary refill Extremities exam: PRESENT: full ROM, tenderness - Left ankle with ecchymosis. ABSENT: calf tenderness, clubbing, pedal edema Neurological exam: PRESENT: alert, awake, oriented to person, oriented to place, oriented to time, oriented to situation, CN II-XII grossly intact. ABSENT: motor sensory deficit Psychiatric exam: PRESENT: appropriate affect, normal mood. ABSENT: homicidal ideation, suicidal ideation Skin exam: PRESENT: dry, intact, warm. ABSENT: cyanosis, rash Results Laboratory Results: 01/01/20 05:33 01/02/20 04:40 01/02/20 04:40 Sodium 131.0 L Potassium 4.9 Chloride 86 L Carbon Dioxide 41 H* Anion Gap 4 L BUN 19 Creatinine 0.50 L Est GFR ( Amer) > 60 Glucose 108 Calcium 8.9 12/25/19 12/25/19 12/25/19 21:15 21:15 21:58 Creatine Kinase Cancelled CK-MB (CK-2) Cancelled 16.50 H Troponin I Cancelled 0.017 NT-Pro-B Natriuret Pep 12/25/19 12/26/19 12/26/19 21:58 05:35 06:52 Creatine Kinase 4483 H Cancelled Cancelled CK-MB (CK-2) Troponin I NT-Pro-B Natriuret Pep 12/26/19 12/26/19 12/27/19 07:50 15:10 04:05 Creatine Kinase 2856 H 1150 H CK-MB (CK-2) Troponin I NT-Pro-B Natriuret Pep 257 12/28/19 03:36 Creatine Kinase 583 H CK-MB (CK-2) Troponin I NT-Pro-B Natriuret Pep Impressions: Foot X-Ray 12/25/19 00:00 IMPRESSION: 1. 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 2. Osteophyte formation of the calcaneus with soft tissue ossification of the plantar fascia. Head CT 12/25/19 22:21 IMPRESSION: Mild atrophy and small vessel ischemic change TECHNICAL DOCUMENTATION: Quality ID # 436: Final reports with documentation of one or more dose reduction techniques (e.g., Automated exposure control, adjustment of the mA and/or kV according to patient size, use of iterative reconstruction technique) copyright 2011 [employer]- All Rights Reserved Hip X-Ray 12/25/19 22:21 IMPRESSION: 1. No acute findings. KUB X-Ray 12/26/19 00:00 IMPRESSION: Marked constipation. Nasogastric tube tip in the stomach. Chest X-Ray 12/29/19 06:00 IMPRESSION: Minimal left basilar atelectasis and probable small left effusion following extubation. No consolidation. Assessment and Plan - Diagnosis (1) Acute and chronic respiratory failure with hypercapnia Is this a current diagnosis for this admission?: Yes Plan: Significantly improved; appears to be stabilizing. Multifactorial secondary to chronic COPD, DEMETRIO, and obesity hypoventilation sy ndrome. ABG today revealed worsening hypercapnia while on supplemental oxygen by nasal cannula alone. Follow-up ABG after 24 hours of new consistent BiPAP use showed worsening hypercapnia. ABG following a AVAPs is significantly improved. Patient is now alert and oriented to her baseline. Discussed the patient's HPI, assessment, and ABG results with Dr. Shea by phone. He recommends trilogy. Patient is placed on AVAPs while in the hospital; have discussed with discharge planning need to arrange for trilogy machine for discharge. Discharge planning is notified. (2) DEMETRIO (obstructive sleep apnea) Is this a current diagnosis for this admission?: Yes Plan: AVAPS Trilegy at discharge. (3) Obesity hypoventilation syndrome Is this a current diagnosis for this admission?: Yes Plan: Previously discussed in detail with family members. Advised dietary discretion. Discussed with Dr. Shea. Now on a AVAPs Due to the patient's diagnosis of restrictive lung disease with hypercapnic respiratory failure secondary to her obesity hypoventilation, patient has a rapidly changing respiratory status which requires an IV with volume guaranteed ventilation. Due to the rapidly changing status of their lung condition, the patient requires multiple ventilation settings such as a mouthpiece ventilation to complete ADLs, a better he is also required for 24-hour access to an IV in multiple environments. This level of support cannot be achieved with bilevel th erapy device. Without therapy, the patient will experience a decline in her health status. Trilogy at discharge. (4) COPD (chronic obstructive pulmonary disease) Qualifiers: Emphysema type: unspecified Is this a current diagnosis for this admission?: Yes Plan: Improved Per family members the patient has been diagnosed with COPD previously; not on maintenance inhalers. She is a former, long-term, smoker. Will provide supplemental oxygen and AVAP as needed to maintain saturations greater than 89%. Continue on scheduled and as needed nebulizer treatments. Will decrease scheduled frequency today. IV Solu-medrol; continue weaning. Robitussin every 6 hours Pulmonary toilet is encouraged with incentive spirometer, flutter valve, and early ambulation. (5) Hyperlipidemia Qualifiers: Hyperlipidemia type: unspecified Qualified Code(s): E78.5 - Hyperlipidemia, unspecified Is this a current diagnosis for this admission?: Yes Plan: Cardiac diet. Home dose atorvastatin. (6) Left ankle pain Qualifiers: Chronicity: acute Qualified Code(s): M25.572 - Pain in left ankle and joints of left foot Is this a current diagnosis for this admission?: Yes Plan: Improved, secondary to fall with injury. Imaging was negative for fracture. Analgesics, ice, elevation as needed for discomfort. Velcro stirrup splint now in place; patient is instructed that splint should be on for all out of bed activities. She may wear it in bed for comfort at her discretion. (7) Unable to ambulate Is this a current diagnosis for this admission?: Yes Plan: Secondary to ankle pain and morbid obesity. Physical therapy has been ordered. Discharge planning consulted; plans to discharge to rehab shortly. (8) Hyponatremia Is this a current diagnosis for this admission?: Yes Plan: Overall stable. Review of historic labs suggest that she may have chronic, mild, hyponatremia. Today the patient confirms that she has a longstanding history of chronic hyponatremia. Not clinically significant at this time; will continue to monitor periodically (9) Rhabdomyolysis Qualifiers: Rhabdomyolysis type: non-traumatic Qualified Code(s): M62.82 - Rhabdomyolysis Is this a current diagnosis for this admission?: Yes Plan: Resolved (10) Hematuria Qualifiers: Hematuria type: gross Qualified Code(s): R31.0 - Gross hematuria Is this a current diagnosis for this admission?: Yes Plan: Patient developed gross hematuria following [place] catheter removal. Likely secondary to [place] trauma. Bladder scan as needed to assess for development of urinary retention. Urinalysis positive for blood; no evidence of UTI. Eliquis was placed on hold; plan to resume tomorrow as hematuria is nearly reso lved. - Time Time Spent with patient: 25-34 minutes Medications reviewed and adjusted accordingly: Yes Anticipated discharge: Home with Homehealth - vs LTAC; attempting to increase mobility to meet for home discharge Within: Other - Once trilogy is available.
[2020-01-02] MEDS: ATORVASTATIN CALCIUM 10 MG TABLET PO SCH (21:43)
[2020-01-03] MEDS ORDERED: ALBUTEROL SULFATE 0.083% NEB 2.5 MG/3 ML AMPUL NEB SCH
[2020-01-03] MEDS: INSULIN REG, HUMAN 100 UNIT/ML 3 ML VIAL (PYX) SUBCUT SCH ×5 (00:02→23:46)
[2020-01-03] MEDS: GUAIFENESIN SYRP 200 MG/10 ML UDC PO SCH ×5 (00:12→23:41)
[2020-01-03] MEDS: HYDRALAZINE HCL 25 MG TABLET PO SCH ×3 (05:48→21:12)
[2020-01-03 06:00] LABS: BLOOD UREA NITROGEN 19 mg/dL (7-20); CALCIUM 9.4 mg/dL (8.4-10.2); CHLORIDE 86 mmol/L (98-107); GLUCOSE 117 mg/dL (75-110); POTASSIUM 5.2 mmol/L (3.6-5.0)
[2020-01-03 06:07] LABS: ANION GAP 8 (5-19)
[2020-01-03 06:13] LABS: CARBON DIOXIDE 39 mmol/L (22-30)
[2020-01-03] MEDS ORDERED: LACTULOSE SYRUP 20 GM/30 ML UDCUP PO ONE (08:30)
[2020-01-03] MEDS: ALBUTEROL SULFATE 0.083% NEB 2.5 MG/3 ML AMPUL NEB SCH ×2 (08:48→21:30)
[2020-01-03] MEDS: METHYLPREDNISOLONE INJ 40 MG/1 ML SDV IV SCH (10:00)
[2020-01-03] MEDS: FAMOTIDINE 20 MG TABLET PO SCH ×2 (10:01→21:13)
[2020-01-03] MEDS: DOCUSATE SODIUM 100 MG CAPSULE PO SCH ×2 (10:02→17:36)
[2020-01-03] MEDS: ATENOLOL 50 MG TABLET PO SCH ×2 (10:02→21:13)
[2020-01-03] MEDS: METFORMIN HCL 500 MG TABLET PO SCH ×2 (10:02→15:19)
[2020-01-03] MEDS: LORATADINE 10 MG TABLET PO SCH (10:02)
[2020-01-03] MEDS: FLUTICASONE NASAL SPRAY 50 MCG/SPRY 120 SPRAY/16 GM NASL SCH ×2 (10:11→21:14)
[2020-01-03 15:06] LABS: BLOOD UREA NITROGEN 24 mg/dL (7-20); CALCIUM 9.5 mg/dL (8.4-10.2); CHLORIDE 84 mmol/L (98-107); GLUCOSE 130 mg/dL (75-110); POTASSIUM 5.3 mmol/L (3.6-5.0)
[2020-01-03 15:19] LABS: ANION GAP 11 (5-19); CARBON DIOXIDE 36 mmol/L (22-30)
[2020-01-03] MEDS ORDERED: SODIUM POLYSTYRENE SULFONATE 15 GM/60 ML PO ONE (16:30)
[2020-01-03] MEDS ORDERED: PATIROMER 8.4 GM SUSP PACKET PO SCH (17:00)
--- NOTE | 2020-01-03 18:28 | PDOC PROGRESS REPORT ---
Subjective Progress Note for:: 01/03/20 Subjective:: The patient was seen on morning rounds. She was found sitting up in the recliner, comfortably, on room air. She is A&O x4, conversational, engaging, and returned to her baseline mental status. Patient reports that she is feeling well. Did well with AVAPs overnight; reports increased alertness, decreased fatigue and dyspnea today. She is very pleased that with the Velcro splint, she was able to ambulate approximately 35 feet with physical therapy yesterday. W ith family member present Patient denies fever, chills, chest pain, dyspnea, cough, abdominal pain, nausea vomiting diarrhea. They have no questions or concerns at this time. No concerns per nursing. Reason For Visit: RHABDOMYOLYSIS,HYPERTENSION,HYPONATREMIA,ELEVATED Physical Exam Vital Signs: Temp Pulse Resp BP Pulse Ox 97.7 F 61 18 155/83 H 92 01/03/20 16:00 01/03/20 16:00 01/03/20 16:00 01/03/20 16:00 01/03/20 16:00 Intake & Output 01/02/20 01/03/20 01/04/20 06:59 06:59 06:59 Intake Total 850 720 820 Output Total 1100 1500 Balance -250 -780 820 Weight 111.5 kg 114.3 kg General appearance: PRESENT: no acute distress, cooperative, morbidly obese, well-developed, well-nourished Head exam: PRESENT: atraumatic, normocephalic Eye exam: PRESENT: conjunctiva pink, EOMI, PERRLA. ABSENT: scleral icterus Ear exam: PRESENT: normal external ear exam Mouth exam: PRESENT: moist, tongue midline Respiratory exam: PRESENT: clear to auscultation cheng, decreased breath sounds, symmetrical, unlabored, other - AVAPs while sleeping. ABSENT: rales, rhonchi, wheezes Cardiovascular exam: PRESENT: RRR. ABSENT: diastolic murmur, rubs, systolic murmur Vascular exam: PRESENT: normal capillary refill Extremities exam: PRESENT: full ROM, tenderness - Stirrup spint left ankle. ABSENT: calf tenderness, clubbing, pedal edema Neurological exam: PRESENT: alert, awake, oriented to person, oriented to place, oriented to time, oriented to situation, CN II-XII grossly intact. ABSENT: motor sensory deficit Psychiatric exam: PRESENT: appropriate affect, normal mood. ABSENT: homicidal ideation, suicidal ideation Skin exam: PRESENT: dry, intact, warm. ABSENT: cyanosis, rash Results Laboratory Results: 01/01/20 05:33 01/03/20 14:28 01/03/20 01/03/20 04:53 14:28 Sodium 132.6 L 130.7 L Potassium 5.2 H 5.3 H Chloride 86 L 84 L Carbon Dioxide 39 H 36 H Anion Gap 8 11 BUN 19 24 H Creatinine 0.50 L 0.50 L Est GFR ( Amer) > 60 > 60 Glucose 117 H 130 H Calcium 9.4 9.5 12/25/19 12/25/19 12/25/19 21:15 21:15 21:58 Creatine Kinase Cancelled CK-MB (CK-2) Cancelled 16.50 H Troponin I Cancelled 0.017 NT-Pro-B Natriuret Pep 12/25/19 12/26/19 12/26/19 21:58 05:35 06:52 Creatine Kinase 4483 H Cancelled Cancelled CK-MB (CK-2) Troponin I NT-Pro-B Natriuret Pep 12/26/19 12/26/19 12/27/19 07:50 15:10 04:05 Creatine Kinase 2856 H 1150 H CK-MB (CK-2) Troponin I NT-Pro-B Natriuret Pep 257 12/28/19 03:36 Creatine Kinase 583 H CK-MB (CK-2) Troponin I NT-Pro-B Natriuret Pep Impressions: Foot X-Ray 12/25/19 00:00 IMPRESSION: 1. 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 2. Osteophyte formation of the calcaneus with soft tissue ossification of the plantar fascia. Head CT 12/25/19 22:21 IMPRESSION: Mild atrophy and small vessel ischemic change TECHNICAL DOCUMENTATION: Quality ID # 436: Final reports with documentation of one or more dose reduction techniques (e.g., Automated exposure control, adjustment of the mA and/or kV according to patient size, use of iterative reconstruction technique) copyright 2011 [employer]- All Rights Reserved Hip X-Ray 12/25/19 22:21 IMPRESSION: 1. No acute findings. KUB X-Ray 12/26/19 00:00 IMPRESSION: Marked constipation. Nasogastric tube tip in the stomach. Chest X-Ray 12/29/19 06:00 IMPRESSION: Minimal left basilar atelectasis and probable small left effusion following extubation. No consolidation. Assessment and Plan - Diagnosis (1) Acute and chronic respiratory failure with hypercapnia Is this a current diagnosis for this admission?: Yes Plan: Significantly improved; appears to be stabilizing. Multifactorial secondary to chronic COPD, DEMETRIO, and obesity hypoventilation syndrome. ABG today revealed worsening hypercapnia while on supplemental oxygen by nasal cannula alone. Follow-up ABG after 24 hours of new consistent BiPAP use showed worsening hypercapnia. ABG following a AVAPs is significantly improved. Patient is now alert and oriented to her baseline. Discussed the patient's HPI, assessment, and ABG results with Dr. Shea by phone. He recommends trilogy. Patient is placed on AVAPs while in the hospital; have discussed with discharge planning need to arrange for trilogy machine for discharge. Discharge planning is notified. Trilogy device and education was provided this afternoon. (2) DEMETRIO (obstructive sleep apnea) Is this a current diagnosis for this admission?: Yes Plan: AVAPS Trilogy at discharge. (3) Obesity hypoventilation syndrome Is this a current diagnosis for this admission?: Yes Plan: Previously discussed in detail with family members. Advised dietary discretion. Discussed with Dr. Shea. Now on a AVAPs; Trilogy for home use. Due to the patient's diagnosis of restrictive lung disease with hypercapnic respiratory failure secondary to her obesity hypoventilation, patient has a rapidly changing respiratory status which requires an IV with volume guaranteed ventilation. Due to the rapidly changing status of their lung condition, the patient requires multiple ventilation settings such as a mouthpiece ventilation to complete ADLs, a better he is also required for 24-hour access to an IV in multiple environments. This level of support cannot be achieved with bilevel therapy device. Without therapy, the patient will experience a decline in her health status. Trilogy at discharge. (4) COPD (chronic obstructive pulmonary disease) Qualifiers: Emphysema type: unspecified Is this a current diagnosis for this admission?: Yes Plan: Resolved. Per family members the patient has been diagnosed with COPD previously; not on maintenance inhalers. She is a former, long-term, smoker. Will provide supplemental oxygen and AVAP as needed to maintain saturations greater than 89%. Continue on scheduled and as needed nebulizer treatments. Will decrease scheduled frequency today. Transition to PO Prednisone today Robitussin every 6 hours Pulmonary toilet is encouraged with incentive spirometer, flutter valve, and early ambulation. (5) Hyperlipidemia Qualifiers: Hyperlipidemia type: unspecified Qualified Code(s): E78.5 - Hyperlipidemia, unspecified Is this a current diagnosis for this admission?: Yes Plan: Cardiac diet. Home dose atorvastatin. (6) Left ankle pain Qualifiers: Chronicity: acute Qualified Code(s): M25.572 - Pain in left ankle and joints of left foot Is this a current diagnosis for this admission?: Yes Plan: Improved, secondary to fall with injury. Imaging was negative for fracture. Analgesics, ice, elevation as needed for discomfort. Velcro stirrup splint now in place; patient is instructed that splint should be on for all out of bed activities. She may wear it in bed for comfort at her discretion. (7) Unable to ambulate Is this a current diagnosis for this admission?: Yes Plan: Secondary to ankle pain and morbid obesity. Physical therapy has been ordered. Discharge planning consulted; plans to discharge to rehab shortly. (8) Hyponatremia Is this a current diagnosis for this admission?: Yes Plan: Overall stable. Review of historic labs suggest that she may have chronic, mild, hyponatremia. The patient confirms that she has a longstanding history of chronic hyponatremia. Not clinically significant at this time; will continue to monitor periodically (9) Rhabdomyolysis Qualifiers: Rhabdomyolysis type: non-traumatic Qualified Code(s): M62.82 - Rhabdomyolysis Is this a current diagnosis for this admission?: Yes Plan: Resolved (10) Hematuria Qualifiers: Hematuria type: gross Qualified Code(s): R31.0 - Gross hematuria Is this a current diagnosis for this admission?: Yes Plan: Patient developed gross hematuria following Latham catheter removal. Likely secondary to Latham trauma. Bladder scan as needed to assess for development of urinary retention. Urinalysis positive for blood; no evidence of UTI. Eliquis was placed on hold; discussed with patient and family member. Patient was not previously on Eliquis as it has been determined that she was not a candidate for chronic anticoagulation. Therefore, Eliquis is discontinued and she will resume her home dose Plavix at discharge. (11) Hyperkalemia Is this a current diagnosis for this admission?: Yes Plan: Patient received lactulose this morning without effect. Follow-up potassium 5.3. Will order Kayexalate and Veltassa this evening. Patient has required multiple potassium correction; would benefit from Veltassa at discharge. Follow-up chemistry in the morning. - Time Time Spent with patient: 35 or more minutes Medications reviewed and adjusted accordingly: Yes Anticipated discharge: Home with Homehealth Within: within 24 hours - Pending improved potassium.
[2020-01-03] MEDS: ATORVASTATIN CALCIUM 10 MG TABLET PO SCH (21:12)
[2020-01-04] MEDS: HYDRALAZINE HCL 25 MG TABLET PO SCH ×2 (05:42→13:13)
[2020-01-04] MEDS: GUAIFENESIN SYRP 200 MG/10 ML UDC PO SCH ×2 (05:43→12:07)
[2020-01-04 06:32] LABS: BLOOD UREA NITROGEN 21 mg/dL (7-20); CALCIUM 9.6 mg/dL (8.4-10.2); CARBON DIOXIDE 39 mmol/L (22-30); CHLORIDE 85 mmol/L (98-107); GLUCOSE 84 mg/dL (75-110)
[2020-01-04 06:33] LABS: ANION GAP 8 (5-19)
[2020-01-04] MEDS: INSULIN REG, HUMAN 100 UNIT/ML 3 ML VIAL (PYX) SUBCUT SCH ×2 (06:37→12:03)
[2020-01-04 06:42] LABS: POTASSIUM 4.1 mmol/L (3.6-5.0)
[2020-01-04] MEDS: METFORMIN HCL 500 MG TABLET PO SCH (07:59)
[2020-01-04] MEDS: ALBUTEROL SULFATE 0.083% NEB 2.5 MG/3 ML AMPUL NEB SCH (08:55)
[2020-01-04] MEDS ORDERED: PREDNISONE 20 MG TABLET PO SCH (10:00)
[2020-01-04] MEDS: LORATADINE 10 MG TABLET PO SCH (10:32)
[2020-01-04] MEDS: DOCUSATE SODIUM 100 MG CAPSULE PO SCH (10:35)
[2020-01-04] MEDS: ACETAMINOPHEN 325 MG TABLET PO PRN (10:36)
[2020-01-04] MEDS: FAMOTIDINE 20 MG TABLET PO SCH (10:53)
[2020-01-04] MEDS: ATENOLOL 50 MG TABLET PO SCH (10:53)
[2020-01-04] MEDS: FLUTICASONE NASAL SPRAY 50 MCG/SPRY 120 SPRAY/16 GM NASL SCH (12:07)
--- NOTE | 2020-01-04 13:19 | PDOC DISCHARGE SUMMARY ---
Impression - Admit/DC Date/PCP Admission Date/Primary Care Provider: 12/26/19 00:26 Discharge Date: 01/04/20 - Discharge Diagnosis (1) Acute and chronic respiratory failure with hypercapnia Is this a current diagnosis for this admission?: Yes (2) Atrial fibrillation Is this a current diagnosis for this admission?: Yes (3) COPD (chronic obstructive pulmonary disease) Is this a current diagnosis for this admission?: Yes (4) Fall Is this a current diagnosis for this admission?: Yes (5) Left ankle pain Is this a current diagnosis for this admission?: Yes (6) Rhabdomyolysis Is this a current diagnosis for this admission?: Yes - Additional Information Resuscitation Status: Full Code Discharge Diet: Cardiac, Diabetic Discharge Activity: Activity As Tolerated, Balance Activity w/Rest, Slowly Increase Activity, Supervised Activity Referrals: [facility] [Outside] - 01/05/20 JAVON MAST MD [NO LOCAL MD] - 01/10/20 11:00 am ([phone] [facility] ) PUJA PEREZ MD [ACTIVE STAFF] - 01/17/20 9:45 am (Follow up at the earliest available appointment.) Prescriptions: Hydralazine HCl [Apresoline 25 mg Tablet] 25 mg PO Q8 #90 tablet Prednisone [Deltasone 20 mg Tablet] 60 mg PO DAILY #12 tablet Fluticasone Propionate [Flonase Nasal [place] 50 Mcg/[place]opaxi 16 gm] 1 spray NASL Q12 #1 spray.pump Famotidine [Pepcid 20 mg Tablet] 20 mg PO Q12 #60 tablet Atenolol [Tenormin 50 mg Tablet] 100 mg PO Q12 #120 tablet Patiromer Calcium Sorbitex [Veltassa 8.4 gm Susp Packet] 8.4 gm PO WSUPPER #10 packet Home Medications: Atorvastatin Calcium [Lipitor 10 mg Tablet] 10 mg PO QHS #30 tablet 01/31/17 Clopidogrel Bisulfate [Plavix 75 mg Tablet] 75 mg PO DAILY #30 tablet 01/31/17 Lisinopril [Prinivil 10 mg Tablet] 10 mg PO DAILY 12/26/19 Metformin HCl [Metformin HCl ER] 500 mg PO BID 12/26/19 Acetaminophen [Tylenol 325 mg Tablet] 650 mg PO Q4HP PRN tablet 01/03/20 Atenolol [Tenormin 50 mg Tablet] 100 mg PO Q12 #120 tablet 01/03/20 Docusate Sodium [Colace 100 mg Capsule] 100 mg PO BID capsule 01/03/20 Famotidine [Pepcid 20 mg Tablet] 20 mg PO Q12 #60 tablet 01/03/20 Fluticasone Propionate [Flonase Nasal [place] 50 Mcg/Cotopaxi 16 gm] 1 spray NASL Q12 #1 spray.pump 01/03/20 Hydralazine HCl [Apresoline 25 mg Tablet] 25 mg PO Q8 #90 tablet 01/03/20 Loratadine [Claritin 10 mg Tablet] 10 mg PO DAILY tablet 01/03/20 Patiromer Calcium Sorbitex [Veltassa 8.4 gm Susp Packet] 8.4 gm PO WSUPPER #10 packet 01/03/20 Prednisone [Deltasone 20 mg Tablet] 60 mg PO DAILY #12 tablet 01/03/20 History of Present Illiness History of Present Illness: MARIEL ALBARRAN is a 74 year old female MARIEL ALBARRAN is a 74 year old female with a history of hypertension, hyperlipidemia, prediabetes and hyponatremia states that she tripped and fell earlier today. This was at approximately 4:00 AM while she was going to the bathroom. She tripped on a towel. She was unable to get up. She crawled to a bed but was unsuccessful. She called rescue at approximately 3:00 in the afternoon. They came and helped her up. She then tried to use a walker to ambulate and fell due to right ankle pain. She had to call rescue again and they proceeded to bring her to the emergency department. Her right ankle is sore but x-ray shows no fracture. CT scan of the head was unremarkable except for small vessel disease. Laboratory studies revealed polycythemia with a hemoglobin of 16.9. Hyponatremia with a sodium of 128. Total bilirubin elevated at 2.5, AST elevated at 116 and her creatinine kinase was 4483. The patient is extremely dry on exam. She will be admitted to the hospitalist service. She was given IV fluids. Hospital Course Hospital Course: Patient was admitted with altered mental status. She was admitted originally to the medical unit however had to be transferred to the ICU and emergently intubated as she was found to be unresponsive, acidotic with a pH of 7.0 and hypercapnic. Patient was subsequently extubated successfully. She was felt to have multiple etiologies for her respiratory failure including possible sleep apnea, obesity hypoventilation syndrome, COPD as well as restrictive lung disease. Patient is felt to have chronic hypercapnic respiratory failure and so after consultation with pulmonology she has been discharged home on home ventilator system, Trilogy. She apparently received trilogy device and education in hospital. She has had multiple falls at home thought to be secondary to left ankle injury. She has been seen by physical therapy and apparently ambulation has been satisfactory although will continue to require home physical therapy at this time. She is also to continue with the Velcro splint as advised. Patient also recently developed hematuria which was thought to be traumatic secondary to Latham catheter. Her hemoglobin has been stable and the nursing staff noted minimal bleeding so at this point no further intervention required He was also treated for hyperkalemia. She received Kayexalate as well as Veltassa. Her potassium is currently 4.1 and there is no need for outpatient hyperkalemia management however I will encourage she is to be and monitor as outpatient It appears patient had atrial fibrillation, puaroxysmal while she was in the ICU. Her chads score is greater than 2. I do not have an echo on file. Patient was briefly on apixaban but it appears this was discontinued. Currently she is in sinus rhythm. At this time I will suggest outpatient follow-up for an echocardiogram and further evaluation She has remained hemodynamically stable and with no further interventions being planned she is being discharged home Physical Exam Vital Signs: Temp Pulse Resp BP Pulse Ox 97.6 F 63 19 123/78 93 01/04/20 08:00 01/04/20 08:00 01/04/20 08:00 01/04/20 08:00 01/04/20 08:00 Intake & Output 01/03/20 01/04/20 01/05/20 06:59 06:59 06:59 Intake Total 720 1500 Output Total 1500 Balance -780 1500 Weight 114.3 kg 117.8 kg General appearance: PRESENT: no acute distress, morbidly obese, well-nourished Head exam: PRESENT: atraumatic, normocephalic Eye exam: PRESENT: conjunctiva pink. ABSENT: scleral icterus Mouth exam: PRESENT: tongue midline Neck exam: ABSENT: carotid bruit, JVD, lymphadenopathy, thyromegaly Respiratory exam: PRESENT: clear to auscultation cheng. ABSENT: rales, rhonchi, wheezes Cardiovascular exam: PRESENT: RRR, +S1, +S2. ABSENT: diastolic murmur, rubs, systolic murmur GI/Abdominal exam: PRESENT: normal bowel sounds, soft. ABSENT: distended, guarding, mass, organolmegaly, rebound, tenderness Rectal exam: PRESENT: deferred Extremities exam: PRESENT: full ROM. ABSENT: calf tenderness, clubbing, pedal edema Neurological exam: PRESENT: alert, awake, oriented to person, oriented to place, oriented to time, oriented to situation, CN II-XII grossly intact. ABSENT: motor sensory deficit Psychiatric exam: PRESENT: appropriate affect, normal mood. ABSENT: homicidal ideation, suicidal ideation Skin exam: PRESENT: dry, rash, skin tears, warm. ABSENT: cyanosis Results Laboratory Results: WBC 9.2 10^3/uL (4.0-10.5) 01/01/20 05:33 RBC 5.25 10^6/uL (3.72-5.28) 01/01/20 05:33 Hgb 15.7 g/dL (12.0-15.5) H 01/01/20 05:33 Hct 48.0 % (36.0-47.0) H 01/01/20 05:33 MCV 91 fl (80-97) 01/01/20 05:33 MCH 29.9 pg (27.0-33.4) 01/01/20 05:33 MCHC 32.7 g/dL (32.0-36.0) 01/01/20 05:33 RDW 15.2 % (11.5-14.0) H 01/01/20 05:33 Plt Count 258 10^3/uL (150-450) 01/01/20 05:33 Lymph % (Auto) Not Reportable 12/25/19 21:15 [place] % (Auto) Not Reportable 12/25/19 21:15 Eos % (Auto) Not Reportable 12/25/19 21:15 Baso % (Auto) Not Reportable 12/25/19 21:15 Absolute Neuts (auto) Not Reportable 12/25/19 21:15 Absolute Lymphs (auto) Not Reportable 12/25/19 21:15 Absolute Monos (auto) Not Reportable 12/25/19 21:15 Absolute Eos (auto) Not Reportable 12/25/19 21:15 Absolute Basos (auto) Not Reportable 12/25/19 21:15 Total Counted 100 12/25/19 21:15 Seg Neutrophils % Not Reportable 12/25/19 21:15 Seg Neuts % (Manual) 93 % (42-78) H 12/25/19 21:15 Band Neutrophils % 1 % (3-5) L 12/25/19 21:15 Lymphocytes % (Manual) 1 % (13-45) L 12/25/19 21:15 Atypical Lymphs % 1 % (0) 12/25/19 21:15 Monocytes % (Manual) 4 % (3-13) 12/25/19 21:15 Eosinophils % (Manual) 0 % (0-6) 12/25/19 21:15 Basophils % (Manual) 0 % (0-2) 12/25/19 21:15 Abs Neuts (Manual) 9.0 10^3/uL (1.7-8.2) H 12/25/19 21:15 Abs Lymphs (Manual) 0.2 10^3/uL (0.5-4.7) L 12/25/19 21:15 Abs Monocytes (Manual) 0.4 10^3/uL (0.1-1.4) 12/25/19 21:15 Absolute Eos (Manual) 0.0 10^3/uL (0.0-0.6) 12/25/19 21:15 Abs Basophils (Manual) 0.0 10^3/uL (0.0-0.2) 12/25/19 21:15 Toxic Granulation 1+ 12/25/19 21:15 Toxic Vacuolation PRESENT 12/25/19 21:15 Platelet Comment ADEQUATE 12/25/19 21:15 Poikilocytosis SLIGHT 12/25/19 21:15 Anisocytosis SLIGHT 12/25/19 21:15 Tear Drop Cells SLIGHT 12/25/19 21:15 Ovalocytes SLIGHT 12/25/19 21:15 Gate Cells SLIGHT 12/25/19 21:15 PT 13.8 SEC (11.4-15.4) 12/25/19 21:15 INR 1.06 12/25/19 21:15 Carbonic Acid 1.95 mmol/L (1.05-1.35) H 01/01/20 05:30 HCO3/H2CO3 Ratio 21:1 01/01/20 05:30 ABG pH 7.43 (7.35-7.45) 01/01/20 05:30 ABG pCO2 64.9 mmHg (35-45) H 01/01/20 05:30 ABG pO2 80.1 mmHg (80-100) 01/01/20 05:30 ABG HCO3 42.5 mmol/L (20-24) H 01/01/20 05:30 ABG Total CO2 44.5 mmol/L (21-25) H 01/01/20 05:30 ABG O2 Saturation 95.8 % (94-98) 01/01/20 05:30 ABG Base Excess 14.5 mmol/L 01/01/20 05:30 FiO2 30% 01/01/20 05:30 Sodium 132.1 mmol/L (137-145) L 01/04/20 05:40 Potassium 4.1 mmol/L (3.6-5.0) D 01/04/20 05:40 Chloride 85 mmol/L (98-107) L 01/04/20 05:40 Carbon Dioxide 39 mmol/L (22-30) H 01/04/20 05:40 Anion Gap 8 (5-19) 01/04/20 05:40 BUN 21 mg/dL (7-20) H 01/04/20 05:40 Creatinine 0.55 mg/dL (0.52-1.25) 01/04/20 05:40 Est GFR ( Amer) > 60 (>60) 01/04/20 05:40 Est GFR (Non-Af Amer) Cancelled 12/26/19 06:52 Est GFR (MDRD) Non-Af > 60 (>60) 01/04/20 05:40 Glucose 84 mg/dL (75-110) 01/04/20 05:40 POC Glucose 91 mg/dL (70-110) 01/04/20 11:35 Serum Osmolality 280 mOsm/kg (275-301) 12/26/19 18:25 Calcium 9.6 mg/dL (8.4-10.2) 01/04/20 05:40 Magnesium 2.3 mg/dL (1.6-2.3) 12/28/19 03:36 Total Bilirubin 2.2 mg/dL (0.2-1.3) H 12/27/19 04:05 Direct Bilirubin 0.4 mg/dL (0.0-0.4) 12/27/19 04:05 Neonat Total Bilirubin Not Reportable 12/27/19 04:05 Neonat Direct Bilirubin Not Reportable 12/27/19 04:05 Neonat Indirect Bili Not Reportable 12/27/19 04:05 AST 77 U/L (14-36) H 12/27/19 04:05 ALT 27 U/L (<35) 12/27/19 04:05 Alkaline Phosphatase 44 U/L (38-126) 12/27/19 04:05 Creatine Kinase 583 U/L (30-135) H 12/28/19 03:36 CK-MB (CK-2) 16.50 ng/mL (<4.55) H 12/25/19 21:58 Troponin I 0.017 ng/mL 12/25/19 21:58 NT-Pro-B Natriuret Pep 257 pg/mL (<450) 12/26/19 15:10 Total Protein 5.6 g/dL (6.3-8.2) L 12/27/19 04:05 Albumin 3.1 g/dL (3.5-5.0) L 12/27/19 04:05 EGFR Cancelled 12/26/19 06:52 Random Cortisol 43.00 ug/dL (None Established) 12/26/19 07:50 Urine Color YELLOW 01/01/20 08:16 Urine Appearance CLEAR 01/01/20 08:16 Urine pH 6.0 (5.0-9.0) 01/01/20 08:16 Ur Specific [place] 1.008 01/01/20 08:16 Urine Protein NEGATIVE mg/dL (NEGATIVE) 01/01/20 08:16 Urine Glucose (UA) NEGATIVE mg/dL (NEGATIVE) 01/01/20 08:16 Urine Ketones NEGATIVE mg/dL (NEGATIVE) 01/01/20 08:16 Urine Blood SMALL (NEGATIVE) H 01/01/20 08:16 Urine Nitrite NEGATIVE (NEGATIVE) 12/25/19 20:43 Urine Nitrite (Reflex) NEGATIVE (NEGATIVE) 01/01/20 08:16 Urine Bilirubin NEGATIVE (NEGATIVE) 01/01/20 08:16 Urine Urobilinogen 4.0 mg/dL (<2.0) H 01/01/20 08:16 Ur Leukocyte Esterase SMALL (NEGATIVE) H 12/25/19 20:43 Leukocyte Esterase Rfl NEGATIVE (NEGATIVE) 01/01/20 08:16 Urine WBC (Auto) 12 /HPF 12/25/19 20:43 Urine RBC (Auto) 2 /HPF 12/25/19 20:43 U Hyaline Cast (Auto) 1 /LPF 01/01/20 08:16 Urine Bacteria (Auto) TRACE /HPF 01/01/20 08:16 Urine WBC (Reflex) 2 /HPF 01/01/20 08:16 Squamous Epi Cells Auto 1 /HPF 01/01/20 08:16 Urine Mucus (Auto) RARE /LPF 01/01/20 08:16 Urine Osmolality 659 mOsm/kg (300-900) 12/26/19 18:02 Urine Ascorbic Acid NEGATIVE (NEGATIVE) 01/01/20 08:16 12/25/19 12/25/19 12/26/19 21:15 21:58 15:10 CK-MB (CK-2) Cancelled 16.50 H Troponin I Cancelled 0.017 NT-Pro-B Natriuret Pep 257 Impressions: Chest X-Ray 12/25/19 00:00 IMPRESSION: No acute process. Previous granulomatous infection. Foot X-Ray 12/25/19 00:00 IMPRESSION: 1. 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 2. Osteophyte formation of the calcaneus with soft tissue ossification of the plantar fascia. Head CT 12/25/19 22:21 IMPRESSION: Mild atrophy and small vessel ischemic change TECHNICAL DOCUMENTATION: Quality ID # 436: Final reports with documentation of one or more dose reduction techniques (e.g., Automated exposure control, adjustment of the mA and/or kV according to patient size, use of iterative reconstruction technique) copyright 2011 [employer]- All Rights Reserved Hip X-Ray 12/25/19 22:21 IMPRESSION: 1. No acute findings. KUB X-Ray 12/26/19 00:00 IMPRESSION: Marked constipation. Nasogastric tube tip in the stomach. Chest X-Ray 12/26/19 12:30 IMPRESSION: Vascular congestion. Increasing left effusion and left basilar opacity. SUPPORT DEVICE(S) IN EXPECTED LOCATIONS. Chest X-Ray 12/27/19 05:00 IMPRESSION: Stable chest with persistent left basilar opacity, possibly atelectasis or infection. Stable enlarged cardiac silhouette and central vascular congestion. Chest X-Ray 12/29/19 06:00 IMPRESSION: Minimal left basilar atelectasis and probable small left effusion following extubation. No consolidation. Stroke Is this a Stroke Patient?: No Acute Heart Failure - Is this a Heart Failure Patient?: No
[2020-01-04 13:32] VITALS: BP 99/56
== END 2020-01-04 15:30 | disposition home health service (06) | DRG 557 ==
LOC: ER 20:17 → EH 12-26 00:26 → 4S 12-26 03:28 → ICU 12-26 11:41 → 5 12-29 12:17 → 4W 01-03 04:25 → 4S 01-03 17:50
PROVIDERS: ADMIT Hospitalist; ATTEND Registered Nurse
PROC: 5A1945Z Respiratory Ventilation, 24-96 Consecutive Hours (ICD-10-PCS; principal; 2019-12-26)
PROC: 0BH17EZ Insertion of Endotracheal Airway into Trachea, Via Natural or Artificial Opening (ICD-10-PCS; 2019-12-26)
PROC: 5A09357 Assistance with Respiratory Ventilation, Less than 24 Consecutive Hours, Continuous Positive Airway Pressure (ICD-10-PCS; 2019-12-26)
PROC: 5A09357 Assistance with Respiratory Ventilation, Less than 24 Consecutive Hours, Continuous Positive Airway Pressure (ICD-10-PCS; 2019-12-30)
DX: M62.82 Rhabdomyolysis (principal); J96.22 Acute and chronic respiratory failure with hypercapnia; E87.1 Hypo-osmolality and hyponatremia; Z68.43 Body mass index [BMI] 50.0-59.9, adult; J44.1 Chronic obstructive pulmonary disease with (acute) exacerbation; E66.2 Morbid (severe) obesity with alveolar hypoventilation; T83.83XA Hemorrhage due to genitourinary prosthetic devices, implants and grafts, initial encounter; I10 Essential (primary) hypertension; E78.5 Hyperlipidemia, unspecified; W01.0XXA Fall on same level from slipping, tripping and stumbling without subsequent striking against object, initial encounter; Z78.1 Physical restraint status; M25.572 Pain in left ankle and joints of left foot; D75.1 Secondary polycythemia; Y84.6 Urinary catheterization as the cause of abnormal reaction of the patient, or of later complication, without mention of misadventure at the time of the procedure; E78.00 Pure hypercholesterolemia, unspecified; F32.9 Major depressive disorder, single episode, unspecified; I48.0 Paroxysmal atrial fibrillation; R31.0 Gross hematuria; Z60.2 Problems related to living alone; Y92.012 Bathroom of single-family (private) house as the place of occurrence of the external cause; Z79.899 Other long term (current) drug therapy; Z79.02 Long term (current) use of antithrombotics/antiplatelets; Z79.84 Long term (current) use of oral hypoglycemic drugs; Z87.891 Personal history of nicotine dependence; Z88.8 Allergy status to other drugs, medicaments and biological substances
CPT/HCPCS: 31500; 36415; 36600; 70450; 71045; 74018; 80048; 80053; 80076; 81001; 82533; 82550; 82553; 82803; 82962; 83735; 83880; 83930; 83935; 84484; 85025; 85027; 85610; 87070; 87205; 93005; 93010; 94002; 94003; 94660; 96360; 96361; 99231; 99232; 99285; 99291; 99292; J1644; J1815; J1940; J2250; J2920; J2930; J3010; J3490; J7030; J7120; J7512; J7620; L1902